=== PATIENT | male | born 1955 | race African-American/Black ===

== ENCOUNTER 2017-01-11 00:21 | Inpatient (IN) | payer OTHER ==
--- NOTE | 2017-01-11 00:53 | PDOC ---
History of Present Illness - General History Source: Patient <GomezsuzanEdmundo - Last Filed: 01/11/17 04:14> - General History Source: Patient, Spouse - History of Present Illness Initial Comments: 01/11/17 01:15 The patient is a 61 year old male with a significant past medical history of acute myelogenous leukemia, NIDDM, hypertension, hyperlipidemia, and DVT, who presents to the emergency department complaining of generalized weakness since yesterday. As per the patient experienced an unwitnessed mechanical fall secondary to weakness yesterday. The patient reports falling on his face and possible LOC. He reports associated pain to the face and mild headache secondary to facial trauma. The patient presents to the ED with a Tmax of 104.6F , but was unaware he had a fever. As per , the patient has experienced episodes of hematuria, but no dysuria, frequency, or urgency. The reports the patient has been experienced decreased appetite, but denies any nausea, vomiting, diarrhea, constipation, melena, or hematochezia. The patient reports midsternal non radiating chest pain, but denies any shortness of breath, diaphoresis, palpitations, or lower extremity edema. The reports the patient usually follows up at [facility] for medical care. The patient denies any recent travel or sick contacts. Allergies: None reported. Past Surgical History: None reported. Social History: Former smoker(Quit January 2015). Denies alcohol or drug use. <Negra Adams - Last Filed: 01/11/17 05:31> - General Stated Complaint: WEAKNESS Time Seen by Provider: 01/11/17 00:52 Past History - Past Medical History Anemia: Yes 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) Cardiac Disorders: Yes (?ISSUE) Diabetes: Yes HTN: Yes Hypercholesterolemia: Yes Suicide Attempt (Hx): No - Psycho/Social/Smoking Cessation Hx Anxiety: No Suicidal Ideation: No Smoking History: Never smoked Have you smoked in the past 12 months: Yes Number of Cigarettes Smoked Daily: 0 'Breaking Loose' booklet given: 02/08/15 Hx Alcohol Use: No Drug/Substance Use Hx: No Substance Use Type: None Hx Substance Use Treatment: No <Edmundo Mathew - Last Filed: 01/11/17 04:14> <Adams,Giomilsy - Last Filed: 01/11/17 05:31> - Past Medical History Allergies/Adverse Reactions: Allergies Allergy/AdvReac Type Severity Reaction Status Date / Time No Known Allergies Allergy Verified 01/11/17 00:53 Home Medications: Ambulatory Orders Amlodipine Besylate [Norvasc -] 5 mg PO DAILY 01/13/16 Magnesium Oxide [Magnesium] 400 mg PO DAILY 01/13/16 Oxycodone HCl/Acetaminophen [Percocet 5/325 -] 1 tab PO Q8H PRN 01/13/16 Posaconazole [Noxafil] 300 mg PO DAILY 01/13/16 Sulfamethoxazole/Trimethoprim [Bactrim Ds -] 1 tab PO BID 01/13/16 Tacrolimus [Prograf] 0.5 mg PO BID 01/13/16 Ursodiol [Actigal] 300 mg PO BID 01/13/16 Valganciclovir HCl 450 mg PO BID 01/13/16 Review of Systems - Review of Systems Able to Perform ROS?: Yes Comments:: 01/11/17 01:20 CONSTITUTIONAL: Present: +generalized weakness, +fever Absent: no chills EYES: Absent: visual changes ENT: Absent: ear pain, no sore throat CARDIOVASCULAR: Present: +midsternal chest pain Absent: no palpitations RESPIRATORY: Absent: cough, no SOB GI: Absent: abdominal pain, no nausea, no vomiting, no constipation, no diarrhea GENITOURINARY: Present: +hematuria Absent: dysuria, no frequency MUSKULOSKELETAL: Absent: back pain, no arthralgia, no myalgia SKIN: Absent: rash NEURO: Present: +headache, +facial pain, +LOC <Adams,Giomilsy - Last Filed: 01/11/17 05:31> *Physical Exam - Vital Signs Last Vital Signs Temp Pulse Resp BP Pulse Ox 104.6 F H 131 H 14 140/78 88 L 01/11/17 00:53 01/11/17 00:53 01/11/17 00:53 01/11/17 00:53 01/11/17 00:53 - Physical Exam Comments: 01/11/17 01:20 GENERAL: Well developed, well nourished. Awake and alert. No acute distress. Febrile. HEENT: Abrasions to the forehead and nose. Facial edema. No facial deformities or crepitus. PERRLA, EOMI. No conjunctival pallor. Sclera are non-icteric. Moist mucous membranes. Oropharynx is clear. NECK: Supple. Full ROM. No JVD. Carotid pulses 2+ and symmetric, without bruits. No thyromegaly. No lymphadenopathy. CARDIOVASCULAR: Tachycardic. No murmurs, rubs, or gallops. Distal pulses are 2+ and symmetric. PULMONARY: No evidence of respiratory distress. Lungs clear to auscultation bilaterally. No wheezing, rales or rhonchi. ABDOMINAL: Soft. Non-tender. Non-distended. No rebound or guarding. No organomegaly. Normoactive bowel sounds. MUSCULOSKELETAL Normal range of motion at all joints. Ecchymosis to the left hip region, but no bony deformities. Ecchymosis to the left wrist, but no bony deformities. No CVA tenderness. EXTREMITIES: No cyanosis. No clubbing. No edema. No calf tenderness. SKIN: Warm and dry. Normal capillary refill. No rashes. No jaundice. NEUROLOGICAL: Alert, awake, appropriate. Cranial nerves 2-12 intact. No deficits to light touch and temperature in face, upper extremities and lower extremities. No motor deficits in the in face, upper extremities and lower extremities. Normoreflexic in the upper and lower extremities. Normal speech. Toes are down- going bilaterally. Gait is normal without ataxia. PSYCHIATRIC: Cooperative. Good eye contact. Appropriate mood and affect. <Negra Adams - Last Filed: 01/11/17 05:31> Heart Score/ECG Review - ECG Impressions Comment:: 01/11/17 04:04 Vent RATE: 106 bpm IMPRESSION: Sinus tachycardia. Nonspecific ST and T wave abnormality. <Negra Adams - Last Filed: 01/11/17 05:31> ED Treatment Course - LABORATORY CBC & Chemistry Diagram: 01/11/17 01:00 01/11/17 01:00 <Edmundo Mathew - Last Filed: 01/11/17 04:14> - LABORATORY CBC & Chemistry Diagram: 01/11/17 01:00 01/11/17 01:00 - RADIOLOGY Radiograph Interpretation: 01/11/17 05:17 EXAM: Head CT INTERPRETED BY: Dr. Rivers REVIEWED BY: Dr. Mathew IMPRESSION: No acute intracranial pathology. Bilateral lamina papyracea fractures with a focal blood in the sinuses versus sinusitis. EXAM: CT Facial bones INTERPRETED BY: Dr. Rivers REVIEWED BY: Dr. Mathew IMPRESSION: Fractures of bilateral lamina papyracea with blood in the sinuses versus sinusitis. <Negra Adams - Last Filed: 01/11/17 05:31> Medical Decision Making - Medical Decision Making 01/11/17 04:15 Dr. Mathew: The scribe's documentation has been prepared under my direction and personally reviewed by me in its entirery. I confirm that the note above accurately reflects all work, treatment, procedures, and medical decision making performed by me. Patient presents with a temp of 104.6, generalized weakness,and hematuria, will admit to [facility] for further evaluation. <Edmundo Mathew - Last Filed: 01/11/17 04:14> *DC/Admit/Observation/Transfer - Discharge Dispostion Admit: Yes <Edmundo Mathew - Last Filed: 01/11/17 04:14> - Attestations Scribe Attestion: 01/11/17 01:24 Documentation prepared by Negra Adams, acting as certified medical technician for Edmundo Mathew DO. <Negra Adams - Last Filed: 01/11/17 05:31> Diagnosis at time of Disposition: Severe sepsis, Neutropaenic precautions, Thrombocytopenia - Discharge Dispostion Condition at time of disposition: Stable - Referrals Referrals: Claudia De Souza MD [Primary Care Provider] -
[2017-01-11] MEDS ORDERED: SODIUM CHLORIDE 0.9% 1000 ML INFUS.BAG IV PRN (00:57)
[2017-01-11] MEDS ORDERED: ACETAMINOPHEN 1000 MG/100 ML VIAL (NON FORMULARY) IVPB ONE (00:59)
[2017-01-11 01:02] VITALS: BMI 22.8
[2017-01-11] MEDS ORDERED: ACETAMINOPHEN INJECTION 100 ML IVPB ONE (01:57)
[2017-01-11] MEDS ORDERED: PIPERACILLIN/TAZOB 3.375 GM 3.375 GM in DEXTROSE 5%-WATER - 50 ML IVPB ONE (02:11)
[2017-01-11] MEDS ORDERED: VANCOMYCIN 1,000 MG in DEXTROSE 5%-WATER - 250 ML IVPB ONE (02:11)
[2017-01-11 02:13] LABS: BASOPHIL 1.4 % (0-2.0); EOSINOPHIL 0.4 % (0-4.5); MCH 29.6 pg (25.7-33.7); MCHC 33.3 g/dl (32.0-35.9); MEAN CELL VOLUME 88.9 fl (80-96); NEUTROPHILS 6.2 % (42.8-82.8); RDW 14.4 % (11.9-15.9); WHITE BLOOD COUNT 13.3 K/mm3 (4.0-10.0)
[2017-01-11 02:14] LABS: INR 1.99 (0.82-1.09); PROTHROMBIN TIME (PATIENT) 22.2 SEC (9.98-11.88)
[2017-01-11 02:17] LABS: ACTIVATED PTT 70.9 SECONDS (26.9-34.4)
[2017-01-11 02:31] LABS: ALBUMIN 2.8 g/dl (3.4-5.0); ANION GAP 11 (8-16); BILIRUBIN,TOTAL 1.5 mg/dL (0.2-1.0); CALCIUM 8.6 mg/dL (8.5-10.1); CO2 27 mmol/L (21-32); CREATININE 3.2 mg/dL (0.7-1.3); GLUCOSE,RANDOM 156 mg/dL (74-106); SGOT/AST 34 U/L (15-37); SGPT/ALT 32 U/L (12-78); TOT PROT 7.7 g/dl (6.4-8.2)
[2017-01-11 02:33] LABS: ALK PHOS 88 U/L (45-117); TROPONIN I 0.08 ng/ml (0.00-0.05)
[2017-01-11 02:40] LABS: VENOUS PH 7.46 (7.32-7.42)
[2017-01-11 02:41] LABS: VENOUS BLOOD GAS HCO3 27.7 meq/L (19-25)
[2017-01-11] MEDS ORDERED: PIPERACILLIN/TAZOB 3.375 GM 50 ML IVPB ONE ×2 (02:44→17:51)
[2017-01-11] MEDS ORDERED: VANCOMYCIN 1 GRAM (PRE-DOCKED) 250 ML IVPB ONE (02:44)
[2017-01-11] MEDS ORDERED: SODIUM CHLORIDE 1,000 ML IV STA ×2 (02:46→06:23)
[2017-01-11 03:16] LABS: MEAN PLT VOLUME 9.6 fl (7.5-11.1)
[2017-01-11 03:17] LABS: PLATELET COMMENT2 NO CLOTTING DETECTED; PLATELET ESTIMATE MARKEDLY DECREASED (NORMAL)
--- NOTE | 2017-01-11 05:41 | PN ---
Teaching Attending Note Name of Resident: Jhon Corey ATTENDING PHYSICIAN STATEMENT I saw and evaluated the patient. I reviewed the resident's note and discussed the case with the resident. I agree with the resident's findings and plan as documented. SUBJECTIVE: 61 y/o M presented to ED c/o generalized weakness for one day, with fall without LOC. As per patient was transfused 2 days prior at [facility] and has had hematuria. Patient also c/o substernal chest pain. OBJECTIVE: A&Ox3 with abrasion to forehead and facial edema. Ansicoria. Lungs: CTA CVS RRR, S1,S2 Abd: Soft, NT, ND, BS+ Ext: hematoma left hip, nl rom and 2+ pulses, no edema. Neuro: no focal deficits ASSESSMENT AND PLAN: Severe sepsis: IVF, continue home medications, Bactrim DS, Posaconazole, Valganciclovir. Stat Vanco and Zosyn. F/U lactic acid and CBC and BMP, UA and UC ID consult. AML- Thrombocytopenia transfuse platelet MILLER- IVF and renal USG monitor I&Os.
--- NOTE | 2017-01-11 06:53 | HP ---
CHIEF COMPLAINT: fevers and shaking PCP: HISTORY OF PRESENT ILLNESS: 61 yo M with significant PMHx of AML, NIDDM, HTN, HLD, and DVT, who presents to the emergency department complaining of generalized weakness since yesterday. He states that two days ago he getting his regularly scheduled transfusion at [facility] and received only one unit instead of his normal two. Immediately after transfusion he felt "weak and shaky". He then proceeded that evening to [employer] from work and had 2 unwitnessed falls where he hit his left hip and head without LOC. The patient presents to the 01/11/17 to ED with a Tmax of 104.6F. As per , the patient has experienced episodes of gross hematuria, but no dysuria, frequency, or urgency. The reports the patient has been experienced decreased appetite, but denies any nausea, vomiting, diarrhea, constipation, melena, or hematochezia. The patient reports midsternal non radiating chest pain, but denies any shortness of breath, diaphoresis, palpitations, or lower extremity edema. He is followed at [facility] Dr. Gibson and Dr. Lomeli for his AML. He states that he is currently on palliative chemo on trial drug. ER course was notable for: (1)CT head and Facial bones- Fractures of bilateral lamina papyracea with blood in sinuses v. sinusitis (2) Given one time dose of Vanco-Zosyn (3) Elevated trops w/o EKG changes most likely demand ischemia 2/2 sepsis. Recent Travel: Denies PAST MEDICAL HISTORY: AML, NIDDM, HTN, HLD, and DVT PAST SURGICAL HISTORY: none Social History: Smoking:current smoker 1/2 ppd Alcohol:denies Drugs: denies Family History: Allergies No Known Allergies Allergy (Verified 01/11/17 00:53) HOME MEDICATIONS: Home Medications Medication Instructions Recorded Amlodipine Besylate [Norvasc -] 5 mg PO DAILY 01/13/16 Magnesium Oxide [Magnesium] 400 mg PO DAILY 01/13/16 Oxycodone HCl/Acetaminophen 1 tab PO Q8H PRN 01/13/16 [Percocet 5/325 -] Posaconazole [Noxafil] 300 mg PO DAILY 01/13/16 Sulfamethoxazole/Trimethoprim 1 tab PO BID 01/13/16 [Bactrim Ds -] Tacrolimus [Prograf] 0.5 mg PO BID 01/13/16 Ursodiol [Actigal] 300 mg PO BID 01/13/16 Valganciclovir HCl 450 mg PO BID 01/13/16 REVIEW OF SYSTEMS CONSTITUTIONAL: (+)fever, chills,generalized weakness Absent: diaphoresis, , malaise, loss of appetite, weight change HEENT: Absent: rhinorrhea, nasal congestion, throat pain, throat swelling, difficulty swallowing, mouth swelling, ear pain, eye pain, visual changes CARDIOVASCULAR: (+)chest pain Absent: , syncope, palpitations, irregular heart rate, lightheadedness, peripheral edema RESPIRATORY: Absent: cough, shortness of breath, dyspnea with exertion, orthopnea, wheezing, stridor, hemoptysis GASTROINTESTINAL: Absent: abdominal pain, abdominal distension, nausea, vomiting, diarrhea, constipation, melena, hematochezia GENITOURINARY: (+)hematuria Absent: dysuria, frequency, urgency, hesitancy, flank pain, genital pain MUSCULOSKELETAL:(+)myalgia Absent: , arthralgia, joint swelling, back pain, neck pain SKIN: Absent: rash, itching, pallor HEMATOLOGIC/IMMUNOLOGIC: Absent: easy bleeding, easy bruising, lymphadenopathy, frequent infections ENDOCRINE: Absent: unexplained weight gain, unexplained weight loss, heat intolerance, cold intolerance NEUROLOGIC: (+)headache Absent: , focal weakness or paresthesias, dizziness, unsteady gait, seizure, mental status changes, bladder or bowel incontinence PSYCHIATRIC: Absent: anxiety, depression, suicidal or homicidal ideation, hallucinations. PHYSICAL EXAMINATION Vital Signs - 24 hr 01/11/17 01/11/17 01/11/17 00:53 02:30 04:00 Temperature 104.6 F H 105.4 F H Pulse Rate 131 H Pulse Rate [ Left Radial] Respiratory 14 Rate Blood Pressure 140/78 Blood Pressure 102/62 [Left Arm] O2 Sat by Pulse 88 L Oximetry (%) 01/11/17 01/11/17 04:05 05:46 Temperature 101.6 F H 102.4 F H Pulse Rate Pulse Rate [ 115 H Left Radial] Respiratory 20 Rate Blood Pressure Blood Pressure 107/97 [Left Arm] O2 Sat by Pulse 92 L Oximetry (%) GENERAL: Awake, alert, and fully oriented, shaking, in moderate distress. HEAD: Abrasions to the forehead and nose. Facial edema. EYES: Pupils unequal left larger but reactive, extraocular movements intact, sclera anicteric, conjunctiva clear. EARS, NOSE, THROAT: Ears normal, nares patent, oropharynx clear without exudates. Moist mucous membranes. NECK: Normal range of motion, supple without lymphadenopathy, JVD, or masses. LUNGS: Breath sounds equal, clear to auscultation bilaterally. No wheezes, and no crackles. No accessory muscle use. HEART: Regular rate and rhythm, normal S1 and S2 without murmur, rub or gallop. ABDOMEN: Soft, nontender, not distended, normoactive bowel sounds, no guarding, no rebound, no masses. No hepatomegaly or splenomegaly. MUSCULOSKELETAL: Normal range of motion at all joints. cachectic. 10cm hematoma on left hip UPPER EXTREMITIES: 2+ pulses, warm, well-perfused. No cyanosis. No clubbing. No peripheral edema. LOWER EXTREMITIES:1+ pulses, warm, well-perfused. No calf tenderness. No peripheral edema. NEUROLOGICAL: Normal speech. gait not observed. PSYCHIATRIC: Aggitated, poor eye contact. SKIN: Warm, dry, normal turgor, no rashes or lesions noted. Laboratory Results - last 24 hr 01/11/17 01/11/17 01/11/17 01:00 01:00 01:00 WBC 13.3 H D RBC 2.56 L Hgb 7.6 L Hct 22.8 L MCV 88.9 MCHC 33.3 RDW 14.4 D Plt Count 6.0 L* D MPV 9.6 D Neutrophils % 6.2 L D Lymphocytes % 50.8 H D Monocytes % 41.2 H D Eosinophils % 0.4 D Basophils % 1.4 Platelet Estimate Markedly decreased Platelet Comment No clotting detected INR 1.99 H D PTT (Actin FS) 70.9 H D VBG pH POC VBG pCO2 POC VBG pO2 Mixed VBG HCO3 Sodium 141 Potassium 4.1 Chloride 103 Carbon Dioxide 27 Anion Gap 11 BUN 36 H D Creatinine 3.2 H D Creat Clearance w eGFR 19.78 Random Glucose 156 H Lactic Acid Calcium 8.6 Total Bilirubin 1.5 H D AST 34 D ALT 32 D Alkaline Phosphatase 88 D Creatine Kinase 424 H Creatine Kinase Index CK-MB (CK-2) < 1.000 CK-MB (CK-2) Rel Index Troponin I 0.08 H Total Protein 7.7 D Albumin 2.8 L 01/11/17 01/11/17 01/11/17 01:00 01:00 02:30 WBC RBC Hgb Hct MCV MCHC RDW Plt Count MPV Neutrophils % Lymphocytes % Monocytes % Eosinophils % Basophils % Platelet Estimate Platelet Comment INR PTT (Actin FS) VBG pH 7.46 H POC VBG pCO2 39.7 POC VBG pO2 18.4 L* Mixed VBG HCO3 27.7 H Sodium Potassium Chloride Carbon Dioxide Anion Gap BUN Creatinine Creat Clearance w eGFR Random Glucose Lactic Acid 1.873 Calcium Total Bilirubin AST ALT Alkaline Phosphatase Creatine Kinase Creatine Kinase Index CK-MB (CK-2) CK-MB (CK-2) Rel Index Cancelled Troponin I Total Protein Albumin ASSESSMENT/PLAN: 61 yo M with significant PMHx of AML, NIDDM, HTN, HLD, and DVT, admitted for management of severe sepsis. ID:Sepsis * severe sepsis- end organ damage * aggressive IVF NS maintain MAP >65 * ID consult- Dr. Shea * has been on Posaconazole 300 mg PO DAILY Bactrim Ds - 1 tab PO BID , Valganciclovir HCl 450 mg PO BID * One time dose Vanco/Zosyn in ED * Labs:Lactic acid, cbc, cmp, ua pending * cultures: blood/urine pending. Neuro: * AAO x3 -neuro checks q6 * Pain control - 1 mg dilaudid Q4hrs. Heme:AML * Followed at [facility] Dr. Gibson and Dr. Lomeli * Thrombocytopenia - hematuria transfuse plt. Pulm: * Supplemental O2 via NC @2L PRN * Maintain O2 sat >90% * Aspiration precautions. CV: * BP meds held for hypotension * elevated trop- most likely demand; trend trops. * hold AC - bleeding Plt 6 GI: * NPO for now * Advance diet * monitor for signs of bleed. * Zofran PRN nausea Renal:MILLER * IVF NS * renal US * possible renal tox from multi drug regimen * avoid nephrotoxin * repeat BMP :hematuria * [place] catheter * hold AC F/E/N: * NS to maintatain MAP >65 * MILLER- repeat BMP * NPO - advance as tolerated. DISPO: Patient admitted to med/surg - patient is hospice/palliative care. Discuss GOC with Fam. Problem List - Problem (1) Severe sepsis (2) Thrombocytopenia (3) AML (acute myeloblastic leukemia) (4) Diabetes (5) Peripheral vascular disease (6) HTN (hypertension) (7) HLD (hyperlipidemia) (8) Neutropaenic precautions Visit type - Emergency Visit Emergency Visit: Yes ED Registration Date: 01/11/17 Care time: The patient presented to the Emergency Department on the above date and was hospitalized for further evaluation of their emergent condition. - New Patient This patient is new to me today: Yes Date on this admission: 01/11/17 - Critical Care Critical Care patient: No
[2017-01-11 07:54] LABS: MCH 30.3 pg (25.7-33.7); MCHC 33.9 g/dl (32.0-35.9); MEAN CELL VOLUME 89.3 fl (80-96); RDW 14.7 % (11.9-15.9); WHITE BLOOD COUNT 14.5 K/mm3 (4.0-10.0)
[2017-01-11 08:04] LABS: PLATELET COUNT 3 K/MM3 (134-434)
[2017-01-11 08:10] LABS: PROTHROMBIN TIME (PATIENT) 22.3 SEC (9.98-11.88)
[2017-01-11 08:13] LABS: ACTIVATED PTT 58.9 SECONDS (26.9-34.4)
[2017-01-11 08:18] LABS: ALBUMIN 2.3 g/dl (3.4-5.0); BILIRUBIN,TOTAL 1.3 mg/dL (0.2-1.0); CALCIUM 7.6 mg/dL (8.5-10.1); TOT PROT 6.3 g/dl (6.4-8.2)
[2017-01-11] MEDS ORDERED: HYDROmorphone HCL CARPU-JECT 1 MG/1 ML DISP.SYRIN ONE (08:20)
[2017-01-11] MEDS: HYDROmorphone HCL CARPU-JECT 1 MG/1 ML DISP.SYRIN IVPUSH PRN (08:21)
[2017-01-11] MEDS ORDERED: ACETAMINOPHEN 325 MG TABLET (FP) PO ONE (08:49)
[2017-01-11 09:15] LABS: MAGNESIUM 1.7 mg/dL (1.8-2.4); PHOSPHOROUS 2.1 mg/dL (2.5-4.9)
[2017-01-11] MEDS ORDERED: HEMOQUE TEST 1 EACH EACH ONE (09:15)
[2017-01-11 09:23] LABS: ARTERIAL BLOOD GAS pH 7.46 (7.35-7.45)
[2017-01-11 09:24] LABS: ALLENS TEST POSITIVE; ART PUNCT SITE RIGHT RADIAL; ARTERIAL BLD GAS O2 SATURATION 94.1 % (90-98.9); ARTERIAL BLOOD GAS BASE EXCESS -0.1 meq/l (-2-2); ARTERIAL BLOOD GAS HCO3 23.3 meq/L (22-26); LPM/O2% 21%; METHEMOGLOBIN 2.6 % (0.4-1.5); PT. ON O2? NO
[2017-01-11 09:25] LABS: TYPE OF O2 ROOM AIR
[2017-01-11] MEDS: DOCUSATE SODIUM 100 MG CAPSULE (FP) PO PRN (10:00)
[2017-01-11] MEDS ORDERED: PHYTONADIONE 10 MG/1 ML AMP IVPB ONE (11:12)
[2017-01-11 12:13] LABS: PLATELET ESTIMATE MARKEDLY DECREASED (NORMAL)
[2017-01-11] MEDS ORDERED: PHYTONADIONE 10 MG/1 ML AMP ONE (13:06)
--- NOTE | 2017-01-11 13:32 | CONSULT ---
Consult - text type - Consultation Consultation Note: The patient is a 61 year old male with a significant past medical history of multiply relapsed acute myelogenous leukemia,s/p allo PBSCT, NIDDM, hypertension , hyperlipidemia, and DVT, who presents to the emergency department complaining of generalized weakness since yesterday. As per the patient experienced an unwitnessed mechanical fall secondary to weakness yesterday. The patient reports falling on his face . The patient presents to the ED with a Tmax of 104.6F, but was unaware he had a fever. As per , the patient has experienced episodes of hematuria, but no dysuria, frequency, or urgency. The reports the patient has been experienced decreased appetite, but denies any nausea, vomiting, diarrhea, constipation, melena, or hematochezia. The patient reports midsternal non radiating chest pain, but denies any shortness of breath, diaphoresis, palpitations, or lower extremity edema. He has been on a clinical trial for AML c/o bleeding from penis Allergies: None reported. Past Surgical History: None reported. Social History: Former smoker(Quit January 2015). Denies alcohol or drug use. Past History - Past Medical History Anemia: Yes Cancer: transformed AML Cardiac Disorders: Yes (?ISSUE) Diabetes: Yes HTN: Yes Hypercholesterolemia: Yes - Psycho/Social/Smoking Cessation Hx Smoking History: Never smoked Have you smoked in the past 12 months: Yes - Past Medical History Allergies/Adverse Reactions: Allergies Allergy/AdvReac Type Severity Reaction Status Date / Time No Known Allergies Allergy Verified 01/11/17 00:53 Home Medications: Ambulatory Orders Amlodipine Besylate [Norvasc -] 5 mg PO DAILY 01/13/16 Magnesium Oxide [Magnesium] 400 mg PO DAILY 01/13/16 Oxycodone HCl/Acetaminophen [Percocet 5/325 -] 1 tab PO Q8H PRN 01/13/16 Posaconazole [Noxafil] 300 mg PO DAILY 01/13/16 Sulfamethoxazole/Trimethoprim [Bactrim Ds -] 1 tab PO BID 01/13/16 Tacrolimus [Prograf] 0.5 mg PO BID 01/13/16 Ursodiol [Actigal] 300 mg PO BID 01/13/16 Valganciclovir HCl 450 mg PO BID 01/13/16 Current Medications Docusate Sodium (Colace -) 100 mg PO BID PRN PRN Reason: CONSTIPATION Last Admin: 01/11/17 10:00 Dose: 100 mg Hydromorphone HCl (Dilaudid Injection -) 1 mg IVPUSH Q4H PRN PRN Reason: PAIN Last Admin: 01/11/17 08:21 Dose: 1 mg Insulin Aspart (Novolog Vial Sliding Scale -) 1 vial SQ ACHS YOMI PRN Reason: Protocol Sodium Chloride (Normal Saline -) 1,000 ml IV Q20M PRN PRN Reason: MAP<65mm Hg OR SBP <90 Last Admin: 01/11/17 02:09 Dose: 1,000 ml - Vital Signs Last Vital Signs Temp Pulse Resp BP Pulse Ox 104.6 F H 131 H 14 140/78 88 L 01/11/17 00:53 01/11/17 00:53 01/11/17 00:53 01/11/17 00:53 01/11/17 00:53 HEENT: DEANNA, EOM Intact Oropharynx: No thrush, No mucositis Cor: RSR, No murmurs, No gallops Lungs: Clear to P&A Abd: Soft, Normal bowel sounds, No organomegaly Ext:No significant edema Abnormal Lab Results 01/11/17 01/11/17 01/11/17 01:00 01:00 01:00 WBC 13.3 H D RBC 2.56 L Hgb 7.6 L Hct 22.8 L Plt Count 6.0 L* D MPV Neutrophils % 6.2 L D Lymphocytes % 50.8 H D Monocytes % 41.2 H D Blast Cells INR 1.99 H D PTT (Actin FS) 70.9 H D Fibrinogen ABG pH ABG pCO2 at Pt Temp ABG pO2 at Pt Temp ABG O2 Content VBG pH POC VBG pO2 Mixed VBG HCO3 Methemoglobin BUN 36 H D Creatinine 3.2 H D Random Glucose 156 H Calcium Phosphorus Magnesium Total Bilirubin 1.5 H D Creatine Kinase 424 H Troponin I 0.08 H Total Protein Albumin 2.8 L Crossmatch 01/11/17 01/11/17 01/11/17 01:50 02:30 07:48 WBC 14.5 H RBC 1.95 L D Hgb 5.9 L* D Hct 17.4 L D Plt Count 3 L* D MPV 12.0 H D Neutrophils % 15.0 L D Lymphocytes % 59.0 H Monocytes % 15.0 H Blast Cells 15 H D INR PTT (Actin FS) Fibrinogen ABG pH ABG pCO2 at Pt Temp ABG pO2 at Pt Temp ABG O2 Content VBG pH 7.46 H POC VBG pO2 18.4 L* Mixed VBG HCO3 27.7 H Methemoglobin BUN Creatinine Random Glucose Calcium Phosphorus Magnesium Total Bilirubin Creatine Kinase Troponin I Total Protein Albumin Crossmatch See Detail 01/11/17 01/11/17 01/11/17 07:48 07:48 07:48 WBC RBC Hgb Hct Plt Count MPV Neutrophils % Lymphocytes % Monocytes % Blast Cells INR 2.00 H PTT (Actin FS) 58.9 H Fibrinogen ABG pH ABG pCO2 at Pt Temp ABG pO2 at Pt Temp ABG O2 Content VBG pH POC VBG pO2 Mixed VBG HCO3 Methemoglobin BUN 33 H Creatinine 3.0 H Random Glucose 156 H Calcium 7.6 L Phosphorus 2.1 L Magnesium 1.7 L Total Bilirubin 1.3 H Creatine Kinase Troponin I 0.12 H D Total Protein 6.3 L Albumin 2.3 L Crossmatch 01/11/17 01/11/17 09:20 11:30 WBC RBC Hgb Hct Plt Count MPV Neutrophils % Lymphocytes % Monocytes % Blast Cells INR PTT (Actin FS) Fibrinogen 504.0 H ABG pH 7.46 H ABG pCO2 at Pt Temp 33.2 L ABG pO2 at Pt Temp 66.0 L ABG O2 Content 4.8 L* VBG pH POC VBG pO2 Mixed VBG HCO3 Methemoglobin 2.6 H BUN Creatinine Random Glucose Calcium Phosphorus Magnesium Total Bilirubin Creatine Kinase Troponin I Total Protein Albumin Crossmatch A/P 61 y/o patient with relapsed AML, s/p alloPBSCT, now on clinical trial at [facility] comes in with generalized weakness for few days. He fell 2 days ago Now severely pancytopenic platelets 3000, Hgb 5.9, febrile, in renal failure and coagulopathic CT head shows no bleed Concern for sepsis/coagulopathy INR 2/fibrinogen 584 Getting 2 units monodonor platelets Getiing FFP/vitaminK Got zosyn/vancomycin f/u ID recommndations continue empiric vanco/zosyn hold bactrim/valganciclovir given pancytpenia continue posaconazole hold tacro/prograf given renal failure iv fluids renal consult monitoring in icu will discuss with team at [facility] and with hospitalist team
--- NOTE | 2017-01-11 14:03 | CONSULT ---
Consult Consult Specialty:: Nephrology Reason for Consultation:: MILLER - History of Present Illness Chief Complaint: generalized weakness and fall History of Present Illness: Pt is a 61 year old male with pmhx of AML, DM, HTN, hyperlipidemia and DVT who presents to the ER with generalized weakness and fall. He also complained of hematuria. He was found to be in renal failure and I was called to evaluate him. He denies history of kidney disease. He complains of decreased PO intake. He denies dysuria but does have hematuria. He did complain of fever and chills. He was also found to be thrombocytopenic and anemic. He was on bactrim until 2 days ago. 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 History of Recent Travel: No Home Medications - Allergies Allergies/Adverse Reactions: Allergies Allergy/AdvReac Type Severity Reaction Status Date / Time No Known Allergies Allergy Verified 01/11/17 00:53 - Home Medications Home Medications: Ambulatory Orders Amlodipine Besylate [Norvasc -] 5 mg PO DAILY 01/13/16 Magnesium Oxide [Magnesium] 400 mg PO DAILY 01/13/16 Oxycodone HCl/Acetaminophen [Percocet 5/325 -] 1 tab PO Q8H PRN 01/13/16 Posaconazole [Noxafil] 300 mg PO DAILY 01/13/16 Sulfamethoxazole/Trimethoprim [Bactrim Ds -] 1 tab PO BID 01/13/16 Tacrolimus [Prograf] 0.5 mg PO BID 01/13/16 Ursodiol [Actigal] 300 mg PO BID 01/13/16 Valganciclovir HCl 450 mg PO BID 01/13/16 Family Disease History - Family Disease History Family Disease History: CA: Mother (breast), Other: Father (healthy at 82) Review of Systems - Review of Systems Constitutional: reports: Loss of Appetite, Malaise. denies: Fever Eyes: reports: No Symptoms HENT: reports: No Symptoms Neck: reports: No Symptoms Cardiovascular: reports: No Symptoms Respiratory: reports: SOB on Exertion Gastrointestinal: reports: No Symptoms Genitourinary: reports: Hematuria Musculoskeletal: reports: Muscle Weakness Integumentary: reports: No Symptoms Neurological: reports: No Symptoms Endocrine: reports: No Symptoms Physical Exam Vital Signs: Vital Signs Temperature 98.1 F 01/11/17 13:15 Pulse Rate 101 H 01/11/17 13:15 Respiratory Rate 14 01/11/17 13:15 Blood Pressure 104/56 01/11/17 13:15 O2 Sat by Pulse Oximetry (%) 98 01/11/17 13:15 Constitutional: Yes: Calm Eyes: Yes: Conjunctiva Clear HENT: Yes: Atraumatic Cardiovascular: Yes: S1, S2 Respiratory: Yes: CTA Bilaterally Gastrointestinal: Yes: Soft Renal/: Yes: Espinoza Present Musculoskeletal: Yes: Muscle Weakness Edema: No Neurological: Yes: Oriented Psychiatric: Yes: Oriented Labs: CBC, BMP 01/11/17 07:48 01/11/17 07:48 Laboratory Tests 05/19/15 01/13/16 01/11/17 10:50 12:55 01:00 WBC 13.3 H D Hgb 7.6 L Plt Count 6.0 L* D ABG pH ABG pCO2 at Pt Temp ABG pO2 at Pt Temp ABG HCO3 ABG O2 Sat (Measured) ABG O2 Content Sodium Potassium Chloride Carbon Dioxide Anion Gap BUN Creatinine 1.1 1.3 Creat Clearance w eGFR Random Glucose Calcium Phosphorus Magnesium 01/11/17 01/11/17 01/11/17 01:00 07:48 07:48 WBC 14.5 H Hgb 5.9 L* D Plt Count 3 L* D ABG pH ABG pCO2 at Pt Temp ABG pO2 at Pt Temp ABG HCO3 ABG O2 Sat (Measured) ABG O2 Content Sodium 142 Potassium 3.9 Chloride 107 Carbon Dioxide 25 Anion Gap 10 BUN 33 H Creatinine 3.2 H D 3.0 H Creat Clearance w eGFR 21.31 Random Glucose 156 H Calcium 7.6 L Phosphorus 2.1 L Magnesium 1.7 L 01/11/17 09:20 WBC Hgb Plt Count ABG pH 7.46 H ABG pCO2 at Pt Temp 33.2 L ABG pO2 at Pt Temp 66.0 L ABG HCO3 23.3 ABG O2 Sat (Measured) 94.1 ABG O2 Content 4.8 L* Sodium Potassium Chloride Carbon Dioxide Anion Gap BUN Creatinine Creat Clearance w eGFR Random Glucose Calcium Phosphorus Magnesium Imaging - Results Chest X-ray: Report Reviewed Assessment/Plan Current Medications Generic Name Dose Route Start Last Admin Trade Name Freq PRN Reason Stop Dose Admin Docusate Sodium 100 mg 01/11/17 07:03 01/11/17 10:00 Colace - PO 100 mg BID PRN Administration CONSTIPATION Hydromorphone HCl 1 mg 01/11/17 07:03 01/11/17 08:21 Dilaudid Injection - IVPUSH 1 mg Q4H PRN Administration PAIN Piperacillin Sod/Tazobactam 50 mls @ 100 mls/hr 01/11/17 14:30 Sod 2.25 gm/ Dextrose IVPB Q8H-IV YOMI Protocol Piperacillin Sod/Tazobactam Sod 50 mls @ 100 mls/hr 01/11/17 14:30 Zosyn 2.25gm Ivpb (Pre-Docked) IVPB 01/11/17 14:59 ONCE ONE Protocol Insulin Aspart 1 vial 01/11/17 07:00 Novolog Vial Sliding Scale - SQ ACHS YOMI Protocol Sodium Chloride 1,000 ml 01/11/17 00:57 01/11/17 02:09 Normal Saline - IV 1,000 ml Q20M PRN Administration MAP<65mm Hg OR SBP <90 Impression 1. MILLER 2. 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 DM 5. hyperlipidemia 6. HTN 7. hx DVT 8. hematuria 9. sepsis 10. thrombocytopenia 11. anemia Plan - get ultrasound kidney and bladder - check ua, electrolytes and creatinine - likely pre-renal disease - called and discussed with heme onc, they will monitor prograf levels and dose - bactrim is on hold, which can contribute to elevated creatinine - admit pt to ICU - bolus with normal saline - case discussed with medical attending and residents - urology eval for gross hematuria - will comment more on etiology of MILLER after more data is gathered - pt getting prbc and platelet transfusions - will follow closely
[2017-01-11] MEDS ORDERED: PIPERACILLIN/TAZOB 2.25 GM 2.25 GM in DEXTROSE 5%-WATER - 50 ML IVPB SCH (14:30)
[2017-01-11] MEDS ORDERED: PIPERACILLIN/TAZOB 2.25 GM 50 ML IVPB ONE (14:30)
[2017-01-11] MEDS: INSULIN SLIDING SCALE (NOVOLOG) 1 VIAL SQ SCH ×2 (15:37→18:19)
--- NOTE | 2017-01-11 16:05 | EKG ---
Test Reason : Blood Pressure : / mmHG Vent. Rate : 106 BPM Atrial Rate : 106 BPM P-R Int : 130 ms QRS Dur : 078 ms QT Int : 320 ms P-R-T Axes : 063 -12 -22 degrees QTc Int : 425 ms SINUS TACHYCARDIA NONSPECIFIC ST AND T WAVE ABNORMALITY ABNORMAL ECG WHEN COMPARED WITH ECG OF 13-JAN-2016 13:10, NONSPECIFIC T WAVE ABNORMALITY, WORSE IN INFERIOR LEADS NONSPECIFIC T WAVE ABNORMALITY, WORSE IN LATERAL LEADS Confirmed by GIOVANNI PERKINS MD ([id number]) on 01/11/2017 4:05:10 PM Referred By: Confirmed By:GIOVANNI PERKINS MD
--- NOTE | 2017-01-11 17:05 | CONSULT ---
Consult Consult Specialty:: PULMONARY/CCM Referred by:: Dr. Gonzalez Reason for Consultation:: sepsis - History of Present Illness Chief Complaint: hematuria History of Present Illness: 61yo male with h/o HTN, hyperlipidemia, DM, h/o DVT, AML s/p auto stem cell transplant who presents with generalized weakness and hematuria. States he was experiencing subjective fevers and chills, had routine blood work 2 days ago and was told that he needed transfusions but felt extremely weak and fell. No cough or wheezing, some dyspnea on exertion. No nausea, vomiting or diarrhea. Does report basim hematuria. Found to have a fever to 105 in the ER with severe anemia and thrombocytopenia, transferred to the ICU for further monitoring. - History Source History Provided By: Patient, Medical Record Limitations to Obtaining History: Clinical Condition - Past Medical History Cardio/Vascular: Yes: Deep Vein Thrombosis, HTN, Hyperlipdemia Endocrine: Yes: Diabetes Mellitus - Past Surgical History Additional Surgical History: stem cell transplant - Alcohol/Substance Use Hx Alcohol Use: No - Smoking History Smoking history: Never smoked Have you smoked in the past 12 months: Yes Aproximately how many cigarettes per day: 0 If you are a former smoker, when did you quit?: 2015 - Social History ADL: Independent Occupation: disability, former [employer] History of Recent Travel: No Home Medications - Allergies Allergies/Adverse Reactions: Allergies Allergy/AdvReac Type Severity Reaction Status Date / Time No Known Allergies Allergy Verified 01/11/17 00:53 - Home Medications Home Medications: Ambulatory Orders Amlodipine Besylate [Norvasc -] 5 mg PO DAILY 01/13/16 Magnesium Oxide [Magnesium] 400 mg PO DAILY 01/13/16 Oxycodone HCl/Acetaminophen [Percocet 5/325 -] 1 tab PO Q8H PRN 01/13/16 Posaconazole [Noxafil] 300 mg PO DAILY 01/13/16 Sulfamethoxazole/Trimethoprim [Bactrim Ds -] 1 tab PO BID 01/13/16 Tacrolimus [Prograf] 0.5 mg PO BID 01/13/16 Ursodiol [Actigal] 300 mg PO BID 01/13/16 Valganciclovir HCl 450 mg PO BID 01/13/16 Family Disease History - Family Disease History Family Disease History: CA: Mother (breast), Other: Father (healthy at 82) Review of Systems - Review of Systems Constitutional: reports: Chills, Fever, Weakness Eyes: denies: Recent Change in Vision HENT: denies: Nasal Congestion, Throat Pain Neck: denies: Stiffness, Tenderness Cardiovascular: reports: Shortness of Breath. denies: Chest Pain, Edema, Palpitations Respiratory: reports: SOB, SOB on Exertion. denies: Cough, Hemoptysis, Wheezing Gastrointestinal: denies: Abdominal Pain, Nausea, Vomiting Genitourinary: reports: Hematuria. denies: Dysuria Neurological: denies: Dizziness, Headache Physical Exam Vital Signs: Vital Signs Temperature 99.2 F 01/11/17 15:14 Pulse Rate 118 H 01/11/17 15:14 Respiratory Rate 20 01/11/17 15:14 Blood Pressure 118/68 01/11/17 15:14 O2 Sat by Pulse Oximetry (%) 96 01/11/17 14:42 Constitutional: Yes: Moderate Distress, Other (intermittent rigors) Eyes: Yes: Conjunctiva Clear, EOM Intact HENT: Yes: Atraumatic, Normocephalic Neck: Yes: Supple, Trachea Midline Cardiovascular: Yes: Tachycardia Respiratory: Yes: Diminished (decreased breath sounds at the bases) Gastrointestinal: Yes: Normal Bowel Sounds, Soft. No: Tenderness Edema: No Neurological: Yes: Alert, Oriented Labs: CBC, BMP 01/11/17 07:48 01/11/17 07:48 Imaging - Results Cat Scan: Report Reviewed, Image Reviewed (LLL consolidation) Assessment/Plan Pneumonia Severe Sepsis Acute on Chronic Renal Failure AML Severe Anemia Severe Thrombocytopenia h/o DVT - broad spectrum antibiotics - send UA, urine cultures - f/u blood cultures - transfuse PRBC, platelets, FFP - monitor CBC, coags - continue IVF - monitor urine output, creatinine - O2 to keep SpO2 >90% - monitor CXR for signs of overload - DVT/GI prophylaxis - ICU monitoring for now Thank you for this consult Olivier Mcneil MD
[2017-01-11 17:37] LABS: URINE APPEARANCE SLCLOUDY; URINE BILIRUBIN NEGATIVE (NEGATIVE); URINE COLOR YELLOW; URINE GLUCOSE (UA) NEGATIVE (NEGATIVE); URINE KETONE NEGATIVE (NEGATIVE); URINE LEUK ESTERASE NEGATIVE (NEGATIVE); URINE NITRITE NEGATIVE (NEGATIVE); URINE UROBILINOGEN 2.0 E.U/dl E.U./dl (0.2-1.0)
[2017-01-11 17:55] LABS: URINE BLOOD 3+ (NEGATIVE); URINE PROTEIN 2+ (NEGATIVE)
--- NOTE | 2017-01-11 17:56 | PN ---
Physical Exam: SUBJECTIVE: Patient seen and examined. c/o intermittent chest pain and facial pain. denies SOB, headache, n/v OBJECTIVE: Vital Signs Period Temp Pulse Resp BP Sys/Martinez Pulse Ox Last 24 Hr 98.0 F-100.5 F 18-124 14-20 80-126/47-70 93-98 GENERAL: The patient is awake, alert, and fully oriented, in no acute distress. HEAD: mild swelling over right temporal, maxiallary, frontal areas, ttp, no bleeding, no broken skin. EYES: PERRL, extraocular movements intact, sclera anicteric, conjunctiva clear. No ptosis. ENT: Ears normal, nares patent, oropharynx clear without exudates, moist mucous membranes. NECK: Trachea midline, full range of motion, supple. LUNGS: Breath sounds equal, clear to auscultation bilaterally, no wheezes, no crackles, no accessory muscle use. HEART: Regular rate and rhythm, S1, S2 without murmur, rub or gallop. ABDOMEN: Soft, nontender, nondistended, normoactive bowel sounds EXTREMITIES: 2+ pulses, warm, well-perfused, no edema. NEUROLOGICAL: Normal speech PSYCH: Normal mood, normal affect. SKIN: Warm, dry, normal turgor, no rashes or lesions noted Laboratory Results - last 24 hr 01/11/17 01/11/17 01/11/17 07:48 07:48 07:48 WBC 14.5 H RBC 1.95 L D Hgb 5.9 L* D Hct 17.4 L D MCV 89.3 MCHC 33.9 RDW 14.7 Plt Count 3 L* D MPV 12.0 H D Neutrophils % 15.0 L D Lymphocytes % 59.0 H Monocytes % 15.0 H Differential Comment Manual diff done Blast Cells 15 H D Platelet Estimate Markedly decreased INR 2.00 H PTT (Actin FS) 58.9 H Fibrinogen Fibrin Degrad Products Puncture Site ABG pH ABG pCO2 at Pt Temp ABG pO2 at Pt Temp ABG HCO3 ABG O2 Sat (Measured) ABG O2 Content ABG Base Excess Antonio Test Carboxyhemoglobin Methemoglobin O2 Delivery Device Oxygen Flow Rate Sodium 142 Potassium 3.9 Chloride 107 Carbon Dioxide 25 Anion Gap 10 BUN 33 H Creatinine 3.0 H Creat Clearance w eGFR 21.31 POC Glucometer Random Glucose 156 H Calcium 7.6 L Phosphorus 2.1 L Magnesium 1.7 L Total Bilirubin 1.3 H AST 30 ALT 25 D Alkaline Phosphatase 70 D LD Total Troponin I Total Protein 6.3 L Albumin 2.3 L 01/11/17 01/11/17 01/11/17 07:48 07:48 09:20 WBC RBC Hgb Hct MCV MCHC RDW Plt Count MPV Neutrophils % Lymphocytes % Monocytes % Differential Comment Blast Cells Platelet Estimate INR PTT (Actin FS) Fibrinogen Fibrin Degrad Products Puncture Site Right radial ABG pH 7.46 H ABG pCO2 at Pt Temp 33.2 L ABG pO2 at Pt Temp 66.0 L ABG HCO3 23.3 ABG O2 Sat (Measured) 94.1 ABG O2 Content 4.8 L* ABG Base Excess -0.1 Antonio Test Positive Carboxyhemoglobin 2.0 Methemoglobin 2.6 H O2 Delivery Device Room air Oxygen Flow Rate 21% Sodium Potassium Chloride Carbon Dioxide Anion Gap BUN Creatinine Creat Clearance w eGFR POC Glucometer Random Glucose Calcium Phosphorus Cancelled Magnesium Cancelled Total Bilirubin AST ALT Alkaline Phosphatase LD Total Troponin I 0.12 H D Total Protein Albumin 01/11/17 01/11/17 01/11/17 09:23 11:30 11:30 WBC RBC Hgb Hct MCV MCHC RDW Plt Count MPV Neutrophils % Lymphocytes % Monocytes % Differential Comment Blast Cells Platelet Estimate INR PTT (Actin FS) Fibrinogen 504.0 H Fibrin Degrad Products >10 & <40 Puncture Site ABG pH ABG pCO2 at Pt Temp ABG pO2 at Pt Temp ABG HCO3 ABG O2 Sat (Measured) ABG O2 Content ABG Base Excess Antonio Test Carboxyhemoglobin Methemoglobin O2 Delivery Device Oxygen Flow Rate Sodium Potassium Chloride Carbon Dioxide Anion Gap BUN Creatinine Creat Clearance w eGFR POC Glucometer [id number] Random Glucose Calcium Phosphorus Magnesium Total Bilirubin AST ALT Alkaline Phosphatase LD Total 232 Troponin I Total Protein Albumin Active Medications Generic Name Dose Route Start Last Admin Trade Name Freq PRN Reason Stop Dose Admin Docusate Sodium 100 mg 01/11/17 07:03 01/11/17 10:00 Colace - PO 100 mg BID PRN Administration CONSTIPATION Hydromorphone HCl 1 mg 01/11/17 07:03 01/11/17 08:21 Dilaudid Injection - IVPUSH 1 mg Q4H PRN Administration PAIN Piperacillin Sod/Tazobactam 50 mls @ 100 mls/hr 01/11/17 14:30 Sod 2.25 gm/ Dextrose IVPB Q8H-IV YOMI Protocol Insulin Aspart 1 vial 01/11/17 07:00 01/11/17 15:37 Novolog Vial Sliding Scale - SQ Not Given ACHS YOMI Protocol Sodium Chloride 1,000 ml 01/11/17 00:57 01/11/17 02:09 Normal Saline - IV 1,000 ml Q20M PRN Administration MAP<65mm Hg OR SBP <90 ASSESSMENT/PLAN: 61 yo man with AML(receiving trial chemotherapy, hospice) NIDDM, HTN, HLD, hx of DVT, s/p fall and hematuria admitted for managment of severe sepsis. - Followed at [facility] Dr. Gibson(cell [phone], office [phone]) and Dr. Lomeli - has been on Posaconazole 300 mg PO DAILY Bactrim Ds - 1 tab PO BID , Valganciclovir HCl 450 mg PO BID - bactrim and valganciclover may cause kidney injury, will hold for now #Severe sepsis( MILLER, fever, tachycardia, elevated wbc) - IVF - bld and urine cx pending - renal ultrasound, urine studies to asses MILLER - [place] cath to monitor I&O - started on meropenem, Id consulted Dr. Shea - tacrolimus level in the AM to elevate level #pancytopenia( 5.9/17.4, plts of 3), jade secondary to his AML/chemotherapy - 2 units of prbc's, 2 units ffp, 2 units monoplatelets, vitamin K IVpb - r/o DIC, fibronigen, fibrin degradation products - Dr. Gaytan consulted #Palliative to discuss GOC with family, as patient is hospice/palliative #DM - NISS #HTN - norvasc 5mg with parameters Visit type - Emergency Visit Emergency Visit: No - New Patient This patient is new to me today: Yes Date on this admission: 01/11/17 - Critical Care Critical Care patient: Yes Total Critical Care Time (in minutes): 38 Critical Care Statement: The care of this patient involved high complexity decision making to prevent further life threatening deterioration of the patient 's condition and/or to evalute & treat vital organ system(s) failure or risk of failure.
[2017-01-11 18:14] LABS: URINE RBC 1000 /hpf (0-3); URINE WBC 220 /hpf (3-5)
[2017-01-11] MEDS ORDERED: ACETAMINOPHEN 325 MG TABLET (FP) ONE (18:27)
[2017-01-11] MEDS: ACETAMINOPHEN 325 MG TABLET (FP) PO PRN (18:28)
--- NOTE | 2017-01-11 18:44 | CONSULT ---
Consult Consult Specialty:: infectious diseases Reason for Consultation:: fever pneumonia,sepsis - History of Present Illness Chief Complaint: weakness hematuria History of Present Illness: Pt is a 61 year old male with pmhx of AML, DM, HTN, hyperlipidemia and DVT who got admitted because of weakness and fall associated with hematuria according to the patient he went to receive blood transfusion which he receives routinely Post transfusion patient felt dizzy and started shaking and had a fall. patient was brought to his home where he was extremely tired and fell asleep When he woke up he was found to ahve blood everywhere from his penis. He called his and he was brought to the [facility] Patient was running high grade fever and is severely thrombocytopenic and anemic and is being transfused patient currently very weak and has says he has not eaten for quite some time. patients temp went as high as 105 and he has basim hematuria. spoke with pita on about his condition - History Source History Provided By: Patient, Medical Record Limitations to Obtaining History: No Limitations - Past Medical History Cardio/Vascular: Yes: Deep Vein Thrombosis, HTN, Hyperlipdemia Endocrine: Yes: Diabetes Mellitus - Past Surgical History Additional Surgical History: stem cell transplant - Alcohol/Substance Use Hx Alcohol Use: No - Smoking History Smoking history: Never smoked Have you smoked in the past 12 months: Yes Aproximately how many cigarettes per day: 0 If you are a former smoker, when did you quit?: 2014 - Social History ADL: Independent Occupation: disability, former CLIENT SERVICE COORDINATOR History of Recent Travel: No Home Medications - Allergies Allergies/Adverse Reactions: Allergies Allergy/AdvReac Type Severity Reaction Status Date / Time No Known Allergies Allergy Verified 01/11/17 00:53 - Home Medications Home Medications: Ambulatory Orders Amlodipine Besylate [Norvasc -] 5 mg PO DAILY 01/13/16 Magnesium Oxide [Magnesium] 400 mg PO DAILY 01/13/16 Oxycodone HCl/Acetaminophen [Percocet 5/325 -] 1 tab PO Q8H PRN 01/13/16 Posaconazole [Noxafil] 300 mg PO DAILY 01/13/16 Sulfamethoxazole/Trimethoprim [Bactrim Ds -] 1 tab PO BID 01/13/16 Tacrolimus [Prograf] 0.5 mg PO BID 01/13/16 Ursodiol [Actigal] 300 mg PO BID 01/13/16 Valganciclovir HCl 450 mg PO BID 01/13/16 Family Disease History - Family Disease History Family Disease History: CA: Mother (breast), Other: Father (healthy at 82) Review of Systems - Review of Systems Constitutional: reports: Fever, Lethargy, Weakness Eyes: reports: No Symptoms HENT: reports: No Symptoms Neck: reports: No Symptoms Cardiovascular: reports: No Symptoms Respiratory: reports: No Symptoms Gastrointestinal: reports: No Symptoms Genitourinary: reports: Hematuria Musculoskeletal: reports: No Symptoms Integumentary: reports: No Symptoms Neurological: reports: No Symptoms Endocrine: reports: No Symptoms Hematology/Lymphatic: reports: No Symptoms Psychiatric: reports: No Symptoms Physical Exam Vital Signs: Vital Signs Temperature 99.2 F 01/11/17 15:14 Pulse Rate 124 H 01/11/17 16:00 Respiratory Rate 20 01/11/17 16:00 Blood Pressure 126/65 01/11/17 16:00 O2 Sat by Pulse Oximetry (%) 96 01/11/17 14:42 Constitutional: Yes: Calm, Mild Distress, Thin Eyes: Yes: Conjunctiva Clear HENT: Yes: Atraumatic Neck: Yes: Supple, Trachea Midline Cardiovascular: Yes: Regular Rate and Rhythm Respiratory: Yes: Regular, Poor Air Entry (left side) Gastrointestinal: Yes: Normal Bowel Sounds, Soft Renal/: Yes: Hematuria, Other. No: CVA Tenderness - Left, CVA Tenderness - Right Musculoskeletal: Yes: WNL Extremities: Yes: WNL Neurological: Yes: Alert, Oriented Psychiatric: Yes: Alert Labs: CBC, BMP 01/11/17 07:48 01/11/17 07:48 Imaging - Results Chest X-ray: Report Reviewed, Image Reviewed X-ray: Report Reviewed, Image Reviewed Cat Scan: Report Reviewed, Image Reviewed Other: Report Reviewed, Image Reviewed Assessment/Plan i have looked at the patient history and also at the imaging studies. patient is a very immunocompromised patient with history of BM transplant on tacrolimus. also he has been on posaconazole I do not see any findings on his body. Also i looked at the ct scan there is a possibility that the patient might have pneumonia but i am not sure that there is pneumonic process going on patient had very high grade fever and all the cx ahve been send There is a possibility that this infection could be due to uti or there might be a viral element involved in any case he needs to be covered by broad spectrum abx. also being on posaconazole for a long time throws up possibilities like having fungal pna but looking at ct scan pictures less possibility 1. MILLER 2. 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 DM 5. hyperlipidemia 6. HTN 7. hx DVT 8. hematuria 9. sepsis 10. thrombocytopenia 11. anemia 12 pneumonia renal failure leukocytosis plan will start patient on vanco will add meropenam close watch on fevers await for blood cx keep the fever down by cooling blanket if needed monitor mental status cc time 50 min
--- NOTE | 2017-01-11 19:38 | CON.ENT ---
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 no significant bleeding at the scene brought to hospital, evaluation shows facial fractures on CT scan denies significant prior nasal problems, able to breathe ok on nasal O2 in hospital - History Source History Provided By: Patient, Medical Record Limitations to Obtaining History: No Limitations - Past Medical History Cardio/Vascular: Yes: Deep Vein Thrombosis, HTN, Hyperlipdemia Endocrine: Yes: Diabetes Mellitus - Past Surgical History Additional Surgical History: stem cell transplant - Alcohol/Substance Use Hx Alcohol Use: No - Smoking History Smoking history: Never smoked Have you smoked in the past 12 months: Yes Aproximately how many cigarettes per day: 0 If you are a former smoker, when did you quit?: 2014 - Social History ADL: Independent Occupation: disability, former [employer] History of Recent Travel: No Home Medications - Allergies Allergies/Adverse Reactions: Allergies Allergy/AdvReac Type Severity Reaction Status Date / Time No Known Allergies Allergy Verified 01/11/17 00:53 - Home Medications Home Medications: Ambulatory Orders Amlodipine Besylate [Norvasc -] 5 mg PO DAILY 01/13/16 Magnesium Oxide [Magnesium] 400 mg PO DAILY 01/13/16 Oxycodone HCl/Acetaminophen [Percocet 5/325 -] 1 tab PO Q8H PRN 01/13/16 Posaconazole [Noxafil] 300 mg PO DAILY 01/13/16 Sulfamethoxazole/Trimethoprim [Bactrim Ds -] 1 tab PO BID 01/13/16 Tacrolimus [Prograf] 0.5 mg PO BID 01/13/16 Ursodiol [Actigal] 300 mg PO BID 01/13/16 Valganciclovir HCl 450 mg PO BID 01/13/16 Family Disease History - Family Disease History Family Disease History: CA: Mother (breast), Other: Father (healthy at 82) Physical Exam-ENT Vital Signs: Vital Signs Temperature 102.8 F H 01/11/17 18:58 Pulse Rate 109 H 01/11/17 18:58 Respiratory Rate 24 01/11/17 18:58 Blood Pressure 102/71 02/16/17 18:58 O2 Sat by Pulse Oximetry (%) 99 01/11/17 16:00 Constitutional: Yes: No Distress, Calm, Thin Head: Yes: Other (left brow abrasion, no stepoff, nasal bones tender but midline /symmetric orbital rims and zygomas WNL TMJ ok and no deviation, occlusion ok) Face: Yes: WNL Eyes: Yes: Conjunctiva Clear, EOM Intact Nose: Yes: Other (crusting. nasal dorsum straight but tender to palpation) Nasal Passage: Yes: Other (nasal endoscopy: nasal septum intact with minimal deviation, inferior meati and airways WNL, inferior turbinates dry, crusted, middle turbinates and meati also crusted. NO pus, no active bleeding, superior meati, superior turbinates, and sphenoethmoid recesses not visualized) Oral/Pharynx: Yes: WNL Outer Ear: Yes: WNL Neck: Yes: WNL Respiratory: Yes: WNL Imaging - Results Cat Scan: Report Reviewed (nondisplaced nasal bone fracture, mild deviation of septum, mild thickening maxillary sinus mucosa but no air fluid level, partial opacification right ethmoid sinus, ++left medial orbital wall medially displaced , suggests acute left medial orbital blowout fracture, medial rectus muscle position symmetric.), Image Reviewed (nondisplaced nasal bone fractures. mild edema maxillary sinuses but no air fluid levels. ++left medial wall) Other: Other (Impression: nondisplaced nasal fracture, left medial orbital wall blowout fracture, EOMI denies visual complaints Recommend: nasal saline spray, ophthalmology consultation, no surgical intervention recommended)
--- NOTE | 2017-01-11 20:13 | PN ---
Teaching Attending Note Name of Resident: Jennifer Harrington ATTENDING PHYSICIAN STATEMENT I saw and evaluated the patient. I reviewed the resident's note and discussed the case with the resident. I agree with the resident's findings and plan as documented. SUBJECTIVE: Patient is febrile, feeling very lethargic. presented with fever of 104. OBJECTIVE: Vital Signs Temperature 102.8 F H 01/11/17 18:58 Pulse Rate 109 H 01/11/17 18:58 Respiratory Rate 24 01/11/17 18:58 Blood Pressure 102/71 01/11/17 18:58 O2 Sat by Pulse Oximetry (%) 99 01/11/17 16:00 GENERAL: The patient is awake, alert, and fully oriented, in no acute distress. HEAD: mild swelling over right temporal, maxiallary, frontal areas, no bleeding , no skin laceration. EYES: PERRL, extraocular movements intact, sclera anicteric, conjunctiva clear. ENT: Ears normal, oropharynx clear without exudates, moist mucous membranes. NECK: Trachea midline, full range of motion, supple, no JVD LUNGS: Breath sounds equal, clear to auscultation bilaterally, no wheezes, no crackles, no accessory muscle use. HEART: Regular rate and rhythm, S1, S2 without murmur, rub or gallop. ABDOMEN: Soft, nontender, nondistended, normoactive bowel sounds EXTREMITIES: 2+ pulses, warm, well-perfused, no edema. NEUROLOGICAL: Normal speech PSYCH: Normal mood, normal affect. SKIN: Warm, dry, normal turgor, no rashes or lesions noted CBCD WBC 14.5 K/mm3 (4.0-10.0) H 01/11/17 07:48 RBC 1.95 M/mm3 (4.00-5.60) L D 01/11/17 07:48 Hgb 5.9 GM/dL (11.7-16.9) L* D 01/11/17 07:48 Hct 17.4 % (35.4-49) L D 01/11/17 07:48 MCV 89.3 fl (80-96) 01/11/17 07:48 MCHC 33.9 g/dl (32.0-35.9) 01/11/17 07:48 RDW 14.7 % (11.9-15.9) 01/11/17 07:48 Plt Count 3 K/MM3 (134-434) L* D 01/11/17 07:48 MPV 12.0 fl (7.5-11.1) H D 01/11/17 07:48 CMP Sodium 142 mmol/L (136-145) 01/11/17 07:48 Potassium 3.9 mmol/L (3.5-5.1) 01/11/17 07:48 Chloride 107 mmol/L (98-107) 01/11/17 07:48 Carbon Dioxide 25 mmol/L (21-32) 01/11/17 07:48 Anion Gap 10 (8-16) 01/11/17 07:48 BUN 33 mg/dL (7-18) H 01/11/17 07:48 Creatinine 3.0 mg/dL (0.7-1.3) H 01/11/17 07:48 Creat Clearance w eGFR 21.31 (>60) 01/11/17 07:48 Random Glucose 156 mg/dL (74-106) H 01/11/17 07:48 Calcium 7.6 mg/dL (8.5-10.1) L 01/11/17 07:48 Total Bilirubin 1.3 mg/dL (0.2-1.0) H 01/11/17 07:48 AST 30 U/L (15-37) 01/11/17 07:48 ALT 25 U/L (12-78) D 01/11/17 07:48 Alkaline Phosphatase 70 U/L (45-117) D 01/11/17 07:48 Total Protein 6.3 g/dl (6.4-8.2) L 01/11/17 07:48 Albumin 2.3 g/dl (3.4-5.0) L 01/11/17 07:48 CARDIAC ENZYMES Creatine Kinase 424 IU/L (39-308) H 01/11/17 01:00 Troponin I 0.12 ng/ml (0.00-0.05) H D 01/11/17 07:48 Current Medications Generic Name Dose Route Start Last Admin Trade Name Freq PRN Reason Stop Dose Admin Acetaminophen 650 mg 01/11/17 18:21 01/11/17 18:28 Tylenol - PO 650 mg Q6H PRN Administration FEVER OR PAIN Amlodipine Besylate 5 mg 01/12/17 10:00 Norvasc - PO DAILY [facility] Docusate Sodium 100 mg 01/11/17 07:03 01/11/17 10:00 Colace - PO 100 mg BID PRN Administration CONSTIPATION Hydromorphone HCl 1 mg 01/11/17 07:03 01/11/17 08:21 Dilaudid Injection - IVPUSH 1 mg Q4H PRN Administration PAIN Meropenem 1 gm/ Dextrose 100 mls @ 250 mls/hr 01/11/17 22:00 IVPB BID [facility] Protocol Insulin Aspart 1 vial 01/11/17 07:00 01/11/17 18:19 Novolog Vial Sliding Scale - SQ Not Given ACHS [facility] Protocol Magnesium Oxide 400 mg 01/12/17 10:00 Mag-Ox - PO DAILY [facility] Non-Formulary Medication 300 mg 01/12/17 10:00 Posaconazole [Noxafil] PO DAILY [facility] Sodium Chloride 1,000 ml 01/11/17 00:57 01/11/17 02:09 Normal Saline - IV 1,000 ml Q20M PRN Administration MAP<65mm Hg OR SBP <90 Sodium Chloride 2 spray 01/11/17 22:00 [place] Nasal [place] - NS BID [facility] Ursodiol 300 mg 01/11/17 22:00 Actigal - PO BID [facility] Vancomycin HCl 1,000 mg 01/13/17 05:00 Vancomycin (Pre-Docked) IVPB Q48H [facility] Home Medications Medication Instructions Recorded Amlodipine Besylate [Norvasc -] 5 mg PO DAILY 01/13/16 Magnesium Oxide [Magnesium] 400 mg PO DAILY 01/13/16 Oxycodone HCl/Acetaminophen 1 tab PO Q8H PRN 01/13/16 [Percocet 5/325 -] Posaconazole [Noxafil] 300 mg PO DAILY 01/13/16 Sulfamethoxazole/Trimethoprim 1 tab PO BID 01/13/16 [Bactrim Ds -] Tacrolimus [Prograf] 0.5 mg PO BID 01/13/16 Ursodiol [Actigal] 300 mg PO BID 01/13/16 Valganciclovir HCl 450 mg PO BID 01/13/16 ASSESSMENT AND PLAN: 61 yo M with significant PMHx of AML, NIDDM, HTN, HLD, and DVT, admitted for management of severe sepsis. #Acute Severe sepsis( fever of 104 presented with , tachycardia, elevated wbc) with Acute renal failure ; Blood culture,UA,urine culture , ID was consulted. on Vancomycin/Meropenem. #Acute pancytopenia( 5.9/17.4, plts of 3),due to experimental therapy that was given s/p STem cell transplant , due to his AML/chemotherapy - improved s/p transfusions s/p tansfusion of FFP 2 units, platelets 2 units, 2 units of PRBC, ordered Ferritin, Fibrinogen, Haptoglobulin, DIC w/u , Oncology consult discussed with. As per oncology to hold prograf, to continue Noxafil # Acute renal failure consulted dr Linn ; prograf level was send # Facial Trauma s/p fall ENT consulted #DM ;NISS #HTN ; monitor , on norvasc 5mg with parameters #Palliative consult to discuss with family for possible hospice critical care time of 35 minutes
[2017-01-11] MEDS: SODIUM CHLORIDE NASAL SPRAY 44 ML BOTTLE NS SCH (22:00)
[2017-01-11] MEDS: URSODIOL 300 MG CAPSULE PO SCH (22:00)
[2017-01-11] MEDS: MEROPENEM 1 GM in DEXTROSE 5%-WATER - 100 ML IVPB SCH (22:00)
[2017-01-12 02:34] LABS: MCH 30.5 pg (25.7-33.7); MCHC 34.4 g/dl (32.0-35.9); MEAN CELL VOLUME 88.7 fl (80-96); MEAN PLT VOLUME 9.1 fl (7.5-11.1); PLATELET COUNT 75 K/MM3 (134-434); RDW 14.2 % (11.9-15.9); WHITE BLOOD COUNT 9.9 K/mm3 (4.0-10.0)
[2017-01-12] MEDS: INSULIN SLIDING SCALE (NOVOLOG) 1 VIAL SQ SCH ×5 (05:14→21:18)
[2017-01-12 06:41] LABS: MCH 30.5 pg (25.7-33.7); MCHC 35.1 g/dl (32.0-35.9); MEAN CELL VOLUME 86.9 fl (80-96); MEAN PLT VOLUME 9.2 fl (7.5-11.1); PLATELET COUNT 62 K/MM3 (134-434); RDW 14.3 % (11.9-15.9); WHITE BLOOD COUNT 8.6 K/mm3 (4.0-10.0)
[2017-01-12 06:46] LABS: ALBUMIN 2.2 g/dl (3.4-5.0); BILIRUBIN,TOTAL 1.1 mg/dL (0.2-1.0); CALCIUM 7.6 mg/dL (8.5-10.1); CREATININE 2.5 mg/dL (0.7-1.3)
[2017-01-12 07:01] LABS: INR 1.53 (0.82-1.09)
[2017-01-12 07:02] LABS: ACTIVATED PTT 46.2 SECONDS (26.9-34.4)
[2017-01-12 07:12] LABS: TROPONIN I 0.13 ng/ml (0.00-0.05)
--- NOTE | 2017-01-12 09:18 | PN ---
History of Present Illness: AML on investigational therapy. Patient presents septic with anemia, thrombocytopenia, pulmonary infiltrate, renal insufficiency, and coagulopathy. Transfused packed cells, platelets, ,FFP. Begun on Meripenem, and Vancomycin. - Review of Systems Constitutional: reports: Loss of Appetite, Unintentional Wgt. Loss, Weakness Eyes: reports: Double Vision, Other (left eye) HENT: reports: Difficult Swallowing. denies: Epistaxis, Throat Pain Neck: denies: Stiffness, Swollen Glands, Tenderness Cardiovascular: reports: Chest Pain, Shortness of Breath Respiratory: reports: SOB, SOB on Exertion. denies: Hemoptysis Gastrointestinal: reports: Diarrhea Genitourinary: reports: Hematuria Musculoskeletal: reports: Muscle Weakness. denies: Back Pain, Extremity Pain, Muscle Pain Integumentary: denies: Blister, Erythema Neurological: reports: Weakness. denies: Change in Speech, Confusion, Dizziness , Headache, Tremors Endocrine: reports: No Symptoms Hematology/Lymphatic: reports: Excessive Bleeding - Medications/Allergies Allergies/Adverse Reactions: Allergies Allergy/AdvReac Type Severity Reaction Status Date / Time No Known Allergies Allergy Verified 01/11/17 00:53 Medications: Current Medications Acetaminophen (Tylenol -) 650 mg PO Q6H PRN PRN Reason: FEVER OR PAIN Last Admin: 01/11/17 18:28 Dose: 650 mg Amlodipine Besylate (Norvasc -) 5 mg PO DAILY [facility] Docusate Sodium (Colace -) 100 mg PO BID PRN PRN Reason: CONSTIPATION Last Admin: 01/11/17 10:00 Dose: 100 mg Hydromorphone HCl (Dilaudid Injection -) 1 mg IVPUSH Q4H PRN PRN Reason: PAIN Last Admin: 01/11/17 08:21 Dose: 1 mg Meropenem 1 gm/ Dextrose 100 mls @ 250 mls/hr IVPB BID [facility] PRN Reason: Protocol Last Admin: 01/11/17 22:00 Dose: 250 mls/hr Insulin Aspart (Novolog Vial Sliding Scale -) 1 vial SQ ACHS [facility] PRN Reason: Protocol Last Admin: 01/12/17 07:25 Dose: Not Given Magnesium Oxide (Mag-Ox -) 400 mg PO DAILY [facility] Non-Formulary Medication (Posaconazole [Noxafil]) 300 mg PO DAILY [facility] Non-Formulary Medication (Tacrolimus [Prograf]) 0.5 mg PO BID [facility] Sodium Chloride (Normal Saline -) 1,000 ml IV Q20M PRN PRN Reason: MAP<65mm Hg OR SBP <90 Last Admin: 01/11/17 02:09 Dose: 1,000 ml Sodium Chloride ([place] Nasal [place] -) 2 spray NS BID [facility] Last Admin: 01/11/17 22:00 Dose: Not Given Ursodiol (Actigal -) 300 mg PO BID [facility] Last Admin: 01/11/17 22:00 Dose: Not Given Vancomycin HCl (Vancomycin (Pre-Docked)) 1,000 mg IVPB Q48H [facility] - Objective Vital Signs: Vital Signs Temperature 99.2 F 01/12/17 00:35 Pulse Rate 96 H 01/12/17 06:00 Respiratory Rate 18 01/12/17 06:00 Blood Pressure 111/59 01/12/17 06:00 O2 Sat by Pulse Oximetry (%) 98 01/11/17 20:44 Constitutional: Yes: Mild Distress Eyes: Yes: Diplopia, Other (left eye) HENT: Yes: Normocephalic, Other (coated tongue). No: Epistaxis, Hoarseness, Tonsillar Exudate Neck: Yes: Supple. No: Lymphadenopathy, Tenderness Cardiovascular: Yes: Regular Rate and Rhythm Respiratory: Yes: Diminished Gastrointestinal: Yes: Normal Bowel Sounds, Soft. No: Ascites, Hepatomegaly, Palpable Mass, Splenomegaly Genitourinary: No: CVA Tenderness - Left, CVA Tenderness - Right Musculoskeletal: No: Back Pain, Muscle Pain Extremities: No: Calf Tenderness, Deformity Edema: No Integumentary: No: Bruising, Erythema, Jaundice Neurological: Yes: Alert, Oriented, Other (Diplopia left eye) ...Motor Strength: WNL Psychiatric: Yes: WNL Labs: CBC, BMP 01/12/17 05:35 01/12/17 05:35 Assessment/Plan AML On investigational therpy. Continue per protocol Anemia Hct 23 % s/p transfusion . Will give additional unit of packed cells. Presumably secondary to marrow replacement and therapy. Sepsis Cultured and begun on Vancomycin and Meripenem. On Antifungal prophylaxis- would continue Nosifil. Coated tongue - to add nystatin. Continue current regimen per I.D. Thrombocytopenia S/p transfusion therapy. Presented with hematuria and platelet count of 3K. Platelet rsponse satisfactory. To monitor. Diplopia Complains of left eye diplopia. Head CT- non contrast negative,but worrisome in setting of AML. Will need to be assessed in future. Diarrhea. To culture stools Coagulopathy Received Vitamin K and FFP with some correction . ?? secondary to sepsis For additional FFP. Pneumonia LLL consolidation Sinusitis Ab per I.D.
[2017-01-12] MEDS: MEROPENEM 1 GM in DEXTROSE 5%-WATER - 100 ML IVPB SCH ×2 (09:27→21:18)
[2017-01-12] MEDS: URSODIOL 300 MG CAPSULE PO SCH ×2 (09:27→21:18)
[2017-01-12] MEDS: amLODIPine BESYLATE 5 MG TABLET (FP) PO SCH (09:31)
[2017-01-12] MEDS: MAGNESIUM OXIDE 400 MG TABLET (FP) PO SCH (09:31)
[2017-01-12] MEDS: HYDROmorphone HCL CARPU-JECT 1 MG/1 ML DISP.SYRIN IVPUSH PRN (09:32)
[2017-01-12] MEDS: SODIUM CHLORIDE NASAL SPRAY 44 ML BOTTLE NS SCH ×2 (09:33→21:19)
[2017-01-12 09:44] LABS: PLATELET ESTIMATE DECREASED (NORMAL)
--- NOTE | 2017-01-12 09:54 | PN ---
Progress Note (short form) - Note Progress Note: Spoke with study people at [facility] To hold Prograf and to hold study drug.
[2017-01-12] MEDS ORDERED: POSACONAZOLE 300 MG PO SCH (10:00)
[2017-01-12] MEDS ORDERED: TACROLIMUS 0.5 MG CAPSULE (NF) PO SCH (10:00)
[2017-01-12] MEDS: NYSTATIN 500,000 UNITS/5 ML SUSPENSION PO SCH ×2 (12:02→17:17)
--- NOTE | 2017-01-12 13:26 | PN ---
Teaching Attending Note Name of Resident: Chad Stover ATTENDING PHYSICIAN STATEMENT I saw and evaluated the patient. I reviewed the resident's note and discussed the case with the resident. I agree with the resident's findings and plan as documented. SUBJECTIVE: Patient sen and examined in the ICU. Awake and alert. Blood pressures improving with volume resuscitation. Some discomfort around the orbit. Reports significant cough but unable to expectorate. Intake & Output 01/09/17 01/10/17 01/11/17 01/12/17 23:59 23:59 23:59 23:59 Intake Total 3850 600 Output Total 900 1000 Balance 2950 -400 Weight 150 lb 148 lb Last Vital Signs Temp Pulse Resp BP Pulse Ox 99.5 F 100 H 18 105/91 98 01/12/17 12:00 01/12/17 12:49 01/12/17 12:49 01/12/17 12:49 01/12/17 09:00 Active Medications Acetaminophen (Tylenol -) 650 mg PO Q6H PRN PRN Reason: FEVER OR PAIN Last Admin: 01/11/17 18:28 Dose: 650 mg Amlodipine Besylate (Norvasc -) 5 mg PO DAILY [facility] Last Admin: 01/12/17 09:31 Dose: 5 mg Docusate Sodium (Colace -) 100 mg PO BID PRN PRN Reason: CONSTIPATION Last Admin: 01/11/17 10:00 Dose: 100 mg Hydromorphone HCl (Dilaudid Injection -) 1 mg IVPUSH Q4H PRN PRN Reason: PAIN Last Admin: 01/12/17 09:32 Dose: 1 mg Meropenem 1 gm/ Dextrose 100 mls @ 250 mls/hr IVPB BID [facility] PRN Reason: Protocol Last Admin: 01/12/17 09:27 Dose: 250 mls/hr Insulin Aspart (Novolog Vial Sliding Scale -) 1 vial SQ ACHS [facility] PRN Reason: Protocol Last Admin: 01/12/17 11:02 Dose: Not Given Magnesium Oxide (Mag-Ox -) 400 mg PO DAILY [facility] Last Admin: 01/12/17 09:31 Dose: 400 mg Non-Formulary Medication (Posaconazole [Noxafil]) 300 mg PO DAILY [facility] Nystatin (Nystatin Oral Suspension -) 500,000 units PO Q6HPO [facility] Last Admin: 01/12/17 12:02 Dose: 500,000 units Sodium Chloride (Normal Saline -) 1,000 ml IV Q20M PRN PRN Reason: MAP<65mm Hg OR SBP <90 Last Admin: 01/11/17 02:09 Dose: 1,000 ml Sodium Chloride ([place] Nasal [place] -) 2 spray NS BID [facility] Last Admin: 01/12/17 09:33 Dose: 2 spray Ursodiol (Actigal -) 300 mg PO BID [facility] Last Admin: 01/12/17 09:27 Dose: 300 mg Vancomycin HCl (Vancomycin (Pre-Docked)) 1,000 mg IVPB Q48H [facility] Constitutional: Yes: Awake and alert. mildly tachypneic at rest Eyes: Yes: Conjunctiva Clear, EOM Intact HENT: Yes: Atraumatic, Normocephalic Neck: Yes: Supple, Trachea Midline Cardiovascular: Yes: Tachycardia Respiratory: Yes: Basilar rhonchi Gastrointestinal: Yes: Normal Bowel Sounds, Soft. No: Tenderness Edema: No Neurological: Yes: Alert, Oriented Labs: Laboratory Results - last 24 hr 01/11/17 01/11/17 01/11/17 01:00 01:50 02:30 WBC RBC Hgb Hct MCV MCHC RDW Plt Count MPV Neutrophils % Lymphocytes % Monocytes % Band Neutrophils Blast Cells Platelet Estimate Haptoglobin INR PTT (Actin FS) Fibrinogen VBG pH 7.46 H POC VBG pCO2 39.7 POC VBG pO2 18.4 L* Mixed VBG HCO3 27.7 H Sodium Potassium Chloride Carbon Dioxide Anion Gap BUN Creatinine Creat Clearance w eGFR Random Glucose Lactic Acid 1.873 Calcium Total Bilirubin AST ALT Alkaline Phosphatase LD Total Creatine Kinase Creatine Kinase Index CK-MB (CK-2) CK-MB (CK-2) Rel Index Troponin I Total Protein Albumin Urine Color Urine Appearance Urine pH Ur Specific [place] Urine Protein Urine Glucose (UA) Urine Ketones Urine Blood Urine Nitrite Urine Bilirubin Urine Urobilinogen Ur Leukocyte Esterase Urine RBC Urine WBC Ur Epithelial Cells Ur Random Sodium Ur Random Potassium Ur Random Chloride Urine Creatinine Blood Type A NEGATIVE Antibody Screen Negative Direct Antiglob Test Crossmatch See Detail 01/11/17 01/11/17 01/11/17 11:30 17:00 17:00 WBC RBC Hgb Hct MCV MCHC RDW Plt Count MPV Neutrophils % Lymphocytes % Monocytes % Band Neutrophils Blast Cells Platelet Estimate Haptoglobin 329 H INR PTT (Actin FS) Fibrinogen VBG pH POC VBG pCO2 POC VBG pO2 Mixed VBG HCO3 Sodium Potassium Chloride Carbon Dioxide Anion Gap BUN Creatinine Creat Clearance w eGFR Random Glucose Lactic Acid Calcium Total Bilirubin AST ALT Alkaline Phosphatase LD Total Creatine Kinase Creatine Kinase Index CK-MB (CK-2) CK-MB (CK-2) Rel Index Troponin I Total Protein Albumin Urine Color Yellow Urine Appearance Slcloudy Urine pH 5.0 Ur Specific [place] 1.016 Urine Protein 2+ H Urine Glucose (UA) Negative Urine Ketones Negative Urine Blood 3+ H Urine Nitrite Negative Urine Bilirubin Negative Urine Urobilinogen 2.0 e.u/dl Ur Leukocyte Esterase Negative Urine RBC 1000 Urine WBC 220 Ur Epithelial Cells Rare Ur Random Sodium 43 Ur Random Potassium 33.9 Ur Random Chloride 43 Urine Creatinine Blood Type Antibody Screen Direct Antiglob Test Crossmatch 01/11/17 01/12/17 01/12/17 17:00 01:50 05:35 WBC 9.9 D 8.6 RBC 2.61 L D 2.60 L Hgb 8.0 L D 7.9 L Hct 23.2 L D 22.6 L MCV 88.7 86.9 MCHC 34.4 35.1 RDW 14.2 14.3 Plt Count 75 L D 62 L MPV 9.1 D 9.2 Neutrophils % 11.0 L D Lymphocytes % 56.0 H Monocytes % 25.0 H Band Neutrophils 1.0 D Blast Cells 7 H D Platelet Estimate Decreased Haptoglobin INR PTT (Actin FS) Fibrinogen VBG pH POC VBG pCO2 POC VBG pO2 Mixed VBG HCO3 Sodium Potassium Chloride Carbon Dioxide Anion Gap BUN Creatinine Creat Clearance w eGFR Random Glucose Lactic Acid Calcium Total Bilirubin AST ALT Alkaline Phosphatase LD Total Creatine Kinase Creatine Kinase Index CK-MB (CK-2) CK-MB (CK-2) Rel Index Troponin I Total Protein Albumin Urine Color Urine Appearance Urine pH Ur Specific [place] Urine Protein Urine Glucose (UA) Urine Ketones Urine Blood Urine Nitrite Urine Bilirubin Urine Urobilinogen Ur Leukocyte Esterase Urine RBC Urine WBC Ur Epithelial Cells Ur Random Sodium Ur Random Potassium Ur Random Chloride Urine Creatinine 115.0 Blood Type Antibody Screen Direct Antiglob Test Crossmatch 01/12/17 01/12/17 01/12/17 05:35 05:35 05:35 WBC RBC Hgb Hct MCV MCHC RDW Plt Count MPV Neutrophils % Lymphocytes % Monocytes % Band Neutrophils Blast Cells Platelet Estimate Haptoglobin INR 1.53 H PTT (Actin FS) 46.2 H Fibrinogen VBG pH POC VBG pCO2 POC VBG pO2 Mixed VBG HCO3 Sodium 144 Potassium 3.8 Chloride 108 H Carbon Dioxide 27 Anion Gap 9 BUN 32 H Creatinine 2.5 H Creat Clearance w eGFR 26.30 Random Glucose 156 H Lactic Acid Calcium 7.6 L Total Bilirubin 1.1 H AST 33 ALT 28 Alkaline Phosphatase 61 LD Total 233 Creatine Kinase Creatine Kinase Index CK-MB (CK-2) CK-MB (CK-2) Rel Index Troponin I Total Protein 6.0 L Albumin 2.2 L Urine Color Urine Appearance Urine pH Ur Specific [place] Urine Protein Urine Glucose (UA) Urine Ketones Urine Blood Urine Nitrite Urine Bilirubin Urine Urobilinogen Ur Leukocyte Esterase Urine RBC Urine WBC Ur Epithelial Cells Ur Random Sodium Ur Random Potassium Ur Random Chloride Urine Creatinine Blood Type Antibody Screen Direct Antiglob Test Negative Crossmatch See Detail 01/12/17 01/12/17 01/12/17 05:35 05:35 05:35 WBC RBC Hgb Hct MCV MCHC RDW Plt Count MPV Neutrophils % Lymphocytes % Monocytes % Band Neutrophils Blast Cells Platelet Estimate Haptoglobin INR PTT (Actin FS) Fibrinogen 688.0 H VBG pH POC VBG pCO2 POC VBG pO2 Mixed VBG HCO3 Sodium Potassium Chloride Carbon Dioxide Anion Gap BUN Creatinine Creat Clearance w eGFR Random Glucose Lactic Acid 1.542 Calcium Total Bilirubin AST ALT Alkaline Phosphatase LD Total Creatine Kinase 310 H D Creatine Kinase Index 0.3 CK-MB (CK-2) 1.037 CK-MB (CK-2) Rel Index Troponin I 0.13 H Total Protein Albumin Urine Color Urine Appearance Urine pH Ur Specific [place] Urine Protein Urine Glucose (UA) Urine Ketones Urine Blood Urine Nitrite Urine Bilirubin Urine Urobilinogen Ur Leukocyte Esterase Urine RBC Urine WBC Ur Epithelial Cells Ur Random Sodium Ur Random Potassium Ur Random Chloride Urine Creatinine Blood Type Antibody Screen Direct Antiglob Test Crossmatch 01/12/17 05:35 WBC RBC Hgb Hct MCV MCHC RDW Plt Count MPV Neutrophils % Lymphocytes % Monocytes % Band Neutrophils Blast Cells Platelet Estimate Haptoglobin INR PTT (Actin FS) Fibrinogen VBG pH POC VBG pCO2 POC VBG pO2 Mixed VBG HCO3 Sodium Potassium Chloride Carbon Dioxide Anion Gap BUN Creatinine Creat Clearance w eGFR Random Glucose Lactic Acid Calcium Total Bilirubin AST ALT Alkaline Phosphatase LD Total Creatine Kinase Creatine Kinase Index CK-MB (CK-2) CK-MB (CK-2) Rel Index Cancelled Troponin I Total Protein Albumin Urine Color Urine Appearance Urine pH Ur Specific [place] Urine Protein Urine Glucose (UA) Urine Ketones Urine Blood Urine Nitrite Urine Bilirubin Urine Urobilinogen Ur Leukocyte Esterase Urine RBC Urine WBC Ur Epithelial Cells Ur Random Sodium Ur Random Potassium Ur Random Chloride Urine Creatinine Blood Type Antibody Screen Direct Antiglob Test Crossmatch Assessment/Plan LLL Pneumonia Severe Sepsis Acute on Chronic Renal Failure AML Severe Anemia Severe Thrombocytopenia h/o DVT - broad spectrum antibiotics per ID - Follow cultures - Transfusional support - IVF - monitor urine output, creatinine - O2 to keep SpO2 >90% - DVT/GI prophylaxis - Pain control - Incentive Spirometry Dr Walker CCTime 35"
--- NOTE | 2017-01-12 13:26 | PN ---
Physical Exam: SUBJECTIVE: Patient seen and examined at bedside in ICU. AAO and states he feels much better today. Less lethargic and with improved breathing. Afebrile after midnight last night. BP stable without pressors and with only maintenance fluid. OBJECTIVE: Vital Signs Period Temp Pulse Resp BP Sys/Martinez Pulse Ox Last 24 Hr 98.4 F-102.8 F 88-124 18-24 90-126/50-91 96-99 GENERAL: The patient is awake, alert, and fully oriented, in no acute distress. HEENT: EOMI, PERRLA, Left sided diplopia, TTP bilateral maxillary, moist membranes LUNGS: mildly diminished breath sounds HEART: RRR, S1S2 ABDOMEN: Soft, nontender, nondistended, normoactive bowel sounds EXTREMITIES: 2+ pulses, warm, well-perfused, no edema. NEUROLOGICAL: Cranial nerves II through XII grossly intact. Normal speech, gait not observed. PSYCH: Normal mood, normal affect. SKIN: Warm, dry, normal turgor, no rashes or lesions noted Laboratory Results - last 24 hr 01/11/17 01/11/17 01/11/17 11:30 17:00 17:00 WBC RBC Hgb Hct MCV MCHC RDW Plt Count MPV Neutrophils % Lymphocytes % Monocytes % Band Neutrophils Blast Cells Platelet Estimate Haptoglobin 329 H INR PTT (Actin FS) Fibrinogen Sodium Potassium Chloride Carbon Dioxide Anion Gap BUN Creatinine Creat Clearance w eGFR Random Glucose Lactic Acid Calcium Total Bilirubin AST ALT Alkaline Phosphatase LD Total Creatine Kinase Creatine Kinase Index CK-MB (CK-2) CK-MB (CK-2) Rel Index Troponin I Total Protein Albumin Urine Color Yellow Urine Appearance Slcloudy Urine pH 5.0 Ur Specific [place] 1.016 Urine Protein 2+ H Urine Glucose (UA) Negative Urine Ketones Negative Urine Blood 3+ H Urine Nitrite Negative Urine Bilirubin Negative Urine Urobilinogen 2.0 e.u/dl Ur Leukocyte Esterase Negative Urine RBC 1000 Urine WBC 220 Ur Epithelial Cells Rare Ur Random Sodium 43 Ur Random Potassium 33.9 Ur Random Chloride 43 Urine Creatinine Direct Antiglob Test Crossmatch 01/11/17 01/12/17 01/12/17 17:00 01:50 05:35 WBC 9.9 D 8.6 RBC 2.61 L D 2.60 L Hgb 8.0 L D 7.9 L Hct 23.2 L D 22.6 L MCV 88.7 86.9 MCHC 34.4 35.1 RDW 14.2 14.3 Plt Count 75 L D 62 L MPV 9.1 D 9.2 Neutrophils % 11.0 L D Lymphocytes % 56.0 H Monocytes % 25.0 H Band Neutrophils 1.0 D Blast Cells 7 H D Platelet Estimate Decreased Haptoglobin INR PTT (Actin FS) Fibrinogen Sodium Potassium Chloride Carbon Dioxide Anion Gap BUN Creatinine Creat Clearance w eGFR Random Glucose Lactic Acid Calcium Total Bilirubin AST ALT Alkaline Phosphatase LD Total Creatine Kinase Creatine Kinase Index CK-MB (CK-2) CK-MB (CK-2) Rel Index Troponin I Total Protein Albumin Urine Color Urine Appearance Urine pH Ur Specific [place] Urine Protein Urine Glucose (UA) Urine Ketones Urine Blood Urine Nitrite Urine Bilirubin Urine Urobilinogen Ur Leukocyte Esterase Urine RBC Urine WBC Ur Epithelial Cells Ur Random Sodium Ur Random Potassium Ur Random Chloride Urine Creatinine 115.0 Direct Antiglob Test Crossmatch 01/12/17 01/12/17 01/12/17 05:35 05:35 05:35 WBC RBC Hgb Hct MCV MCHC RDW Plt Count MPV Neutrophils % Lymphocytes % Monocytes % Band Neutrophils Blast Cells Platelet Estimate Haptoglobin INR 1.53 H PTT (Actin FS) 46.2 H Fibrinogen Sodium 144 Potassium 3.8 Chloride 108 H Carbon Dioxide 27 Anion Gap 9 BUN 32 H Creatinine 2.5 H Creat Clearance w eGFR 26.30 Random Glucose 156 H Lactic Acid Calcium 7.6 L Total Bilirubin 1.1 H AST 33 ALT 28 Alkaline Phosphatase 61 LD Total 233 Creatine Kinase Creatine Kinase Index CK-MB (CK-2) CK-MB (CK-2) Rel Index Troponin I Total Protein 6.0 L Albumin 2.2 L Urine Color Urine Appearance Urine pH Ur Specific [place] Urine Protein Urine Glucose (UA) Urine Ketones Urine Blood Urine Nitrite Urine Bilirubin Urine Urobilinogen Ur Leukocyte Esterase Urine RBC Urine WBC Ur Epithelial Cells Ur Random Sodium Ur Random Potassium Ur Random Chloride Urine Creatinine Direct Antiglob Test Negative Crossmatch See Detail 01/12/17 01/12/17 01/12/17 05:35 05:35 05:35 WBC RBC Hgb Hct MCV MCHC RDW Plt Count MPV Neutrophils % Lymphocytes % Monocytes % Band Neutrophils Blast Cells Platelet Estimate Haptoglobin INR PTT (Actin FS) Fibrinogen 688.0 H Sodium Potassium Chloride Carbon Dioxide Anion Gap BUN Creatinine Creat Clearance w eGFR Random Glucose Lactic Acid 1.542 Calcium Total Bilirubin AST ALT Alkaline Phosphatase LD Total Creatine Kinase 310 H D Creatine Kinase Index 0.3 CK-MB (CK-2) 1.037 CK-MB (CK-2) Rel Index Troponin I 0.13 H Total Protein Albumin Urine Color Urine Appearance Urine pH Ur Specific [place] Urine Protein Urine Glucose (UA) Urine Ketones Urine Blood Urine Nitrite Urine Bilirubin Urine Urobilinogen Ur Leukocyte Esterase Urine RBC Urine WBC Ur Epithelial Cells Ur Random Sodium Ur Random Potassium Ur Random Chloride Urine Creatinine Direct Antiglob Test Crossmatch Active Medications Generic Name Dose Route Start Last Admin Trade Name Freq PRN Reason Stop Dose Admin Acetaminophen 650 mg 01/11/17 18:21 01/11/17 18:28 Tylenol - PO 650 mg Q6H PRN Administration FEVER OR PAIN Amlodipine Besylate 5 mg 01/12/17 10:00 01/12/17 09:31 Norvasc - PO 5 mg DAILY YOMI Administration Docusate Sodium 100 mg 01/11/17 07:03 01/11/17 10:00 Colace - PO 100 mg BID PRN Administration CONSTIPATION Hydromorphone HCl 1 mg 01/11/17 07:03 01/12/17 09:32 Dilaudid Injection - IVPUSH 1 mg Q4H PRN Administration PAIN Meropenem 1 gm/ Dextrose 100 mls @ 250 mls/hr 01/11/17 22:00 01/12/17 09:27 IVPB 250 mls/hr BID [facility] Administration Protocol Insulin Aspart 1 vial 01/11/17 07:00 01/12/17 11:02 Novolog Vial Sliding Scale - SQ Not Given ACHS [facility] Protocol Magnesium Oxide 400 mg 01/12/17 10:00 01/12/17 09:31 Mag-Ox - PO 400 mg DAILY YOMI Administration Non-Formulary Medication 300 mg 01/12/17 10:00 Posaconazole [Noxafil] PO DAILY [facility] Nystatin 500,000 units 01/12/17 12:00 01/12/17 12:02 Nystatin Oral Suspension - PO 500,000 units Q6HPO YOMI Administration Sodium Chloride 1,000 ml 01/11/17 00:57 01/11/17 02:09 Normal Saline - IV 1,000 ml Q20M PRN Administration MAP<65mm Hg OR SBP <90 Sodium Chloride 2 spray 01/11/17 22:00 01/12/17 09:33 [place] Nasal [place] - NS 2 spray BID YOMI Administration Ursodiol 300 mg 01/11/17 22:00 01/12/17 09:27 Actigal - PO 300 mg BID YOMI Administration Vancomycin HCl 1,000 mg 01/13/17 05:00 Vancomycin (Pre-Docked) IVPB Q48H YOMI ASSESSMENT/PLAN: 61 year old male with PMH of AML (On experimental trial/Tacrolimus, Hospice), DM. HTN, HLD, DVT who presents to ICU for management of severe sepsis. Patient had mechanicall fall on ice severla days ago with blowout fracture of left orbit. #Severe Sepsis, possibluy related to Pneumonia, UTI? -On wide spectrum antibiotics, Vancomycin & Meropenem -Blood cultures (-), Influenza (-), Urine culture pending -IVF NS for maintenance, bolus if MAP <65 -ID consult appreciated -continue Nystatin, Posaconazole #Acute Kidney Injury with Hematuria -Creatinine improving, 3-->2.5 -bladder & kidney US reviewed -FeNa .79, likely pre-renal etiology -holding Bactrim & Valganciclovir for now -Strict I's & O's #Pancytopenia, seocndary to AML/Chemotherapy/trial -given 2units PRBC, 2units Platelets, 2units FFP, Vitamin K -today will give 2 more FFP and 2 more PRBC -heme/oncology consult appreciated -Dr Gaytan confirmed with [facility] that we can stop Tacrolimus & experimental trial for now #Mechanical fall w/ facial fractures -seen by ENT, does not require surgery -needs to see supervisor fertilizer for left sided diplopia following fracture of orbit #Hypertension -continue Norvasc 5mg #Diabetes Mellitus -insulin sliding scale -FSBG ACHS #Diarrhea -will test for CC Diff Prophylaxis/FEN -SCD's, -IVF NS@100 ml/hr, giving MgOx daily, NPO Visit type - Emergency Visit Emergency Visit: Yes ED Registration Date: 01/11/17 Care time: The patient presented to the Emergency Department on the above date and was hospitalized for further evaluation of their emergent condition. - New Patient This patient is new to me today: Yes Date on this admission: 01/12/17 - Critical Care Critical Care patient: Yes Total Critical Care Time (in minutes): 45 Critical Care Statement: The care of this patient involved high complexity decision making to prevent further life threatening deterioration of the patient 's condition and/or to evalute & treat vital organ system(s) failure or risk of failure.
--- NOTE | 2017-01-12 13:29 | PN ---
Progress Note, Physician History of Present Illness: Pt seen and examined at bedside. He is awake and alert. He feels much better than he did yesterday. He feels his shortness of breath is improved. - Current Medication List Current Medications: Active Medications Acetaminophen (Tylenol -) 650 mg PO Q6H PRN PRN Reason: FEVER OR PAIN Last Admin: 01/11/17 18:28 Dose: 650 mg Amlodipine Besylate (Norvasc -) 5 mg PO DAILY [facility] Last Admin: 01/12/17 09:31 Dose: 5 mg Docusate Sodium (Colace -) 100 mg PO BID PRN PRN Reason: CONSTIPATION Last Admin: 01/11/17 10:00 Dose: 100 mg Hydromorphone HCl (Dilaudid Injection -) 1 mg IVPUSH Q4H PRN PRN Reason: PAIN Last Admin: 01/12/17 09:32 Dose: 1 mg Meropenem 1 gm/ Dextrose 100 mls @ 250 mls/hr IVPB BID YOMI PRN Reason: Protocol Last Admin: 01/12/17 09:27 Dose: 250 mls/hr Insulin Aspart (Novolog Vial Sliding Scale -) 1 vial SQ ACHS YOMI PRN Reason: Protocol Last Admin: 01/12/17 11:02 Dose: Not Given Magnesium Oxide (Mag-Ox -) 400 mg PO DAILY [facility] Last Admin: 01/12/17 09:31 Dose: 400 mg Non-Formulary Medication (Posaconazole [Noxafil]) 300 mg PO DAILY [facility] Nystatin (Nystatin Oral Suspension -) 500,000 units PO Q6HPO [facility] Last Admin: 01/12/17 12:02 Dose: 500,000 units Sodium Chloride (Normal Saline -) 1,000 ml IV Q20M PRN PRN Reason: MAP<65mm Hg OR SBP <90 Last Admin: 01/11/17 02:09 Dose: 1,000 ml Sodium Chloride ([place] Nasal [place] -) 2 spray NS BID [facility] Last Admin: 01/12/17 09:33 Dose: 2 spray Ursodiol (Actigal -) 300 mg PO BID [facility] Last Admin: 01/12/17 09:27 Dose: 300 mg Vancomycin HCl (Vancomycin (Pre-Docked)) 1,000 mg IVPB Q48H [facility] - Objective Vital Signs: Vital Signs Temperature 99.5 F 01/12/17 12:00 Pulse Rate 100 H 0217/17 12:49 Respiratory Rate 18 01/12/17 12:49 Blood Pressure 105/91 01/12/17 12:49 O2 Sat by Pulse Oximetry (%) 98 01/12/17 09:00 Constitutional: Yes: Calm Eyes: Yes: Conjunctiva Clear HENT: Yes: Atraumatic Neck: Yes: Supple Cardiovascular: Yes: S1, S2 Respiratory: Yes: CTA Bilaterally, On Nasal O2 Gastrointestinal: Yes: Soft Genitourinary: Yes: [place] Present Musculoskeletal: Yes: Muscle Weakness Edema: No Neurological: Yes: Oriented Psychiatric: Yes: Oriented Labs: CBC, BMP 01/12/17 05:35 01/12/17 05:35 INR, PTT INR 1.53 (0.82-1.09) H 01/12/17 05:35 Fibrinogen 688.0 mg/dL (238-498) H 01/12/17 05:35 - ....Imaging Ultrasound: Report Reviewed Assessment/Plan Current Medications Generic Name Dose Route Start Last Admin Trade Name Freq PRN Reason Stop Dose Admin Acetaminophen 650 mg 01/11/17 18:21 01/11/17 18:28 Tylenol - PO 650 mg Q6H PRN Administration FEVER OR PAIN Amlodipine Besylate 5 mg 01/12/17 10:00 01/12/17 09:31 Norvasc - PO 5 mg DAILY YOMI Administration Docusate Sodium 100 mg 01/11/17 07:03 01/11/17 10:00 Colace - PO 100 mg BID PRN Administration CONSTIPATION Hydromorphone HCl 1 mg 01/11/17 07:03 01/12/17 09:32 Dilaudid Injection - IVPUSH 1 mg Q4H PRN Administration PAIN Meropenem 1 gm/ Dextrose 100 mls @ 250 mls/hr 01/11/17 22:00 01/12/17 09:27 IVPB 250 mls/hr BID YOMI Administration Protocol Sodium Chloride 1,000 mls @ 100 mls/hr 01/12/17 13:30 Normal Saline - IV 01/12/17 23:29 ASDIR YOMI Insulin Aspart 1 vial 01/11/17 07:00 01/12/17 11:02 Novolog Vial Sliding Scale - SQ Not Given ACHS YOMI Protocol Magnesium Oxide 400 mg 01/12/17 10:00 01/12/17 09:31 Mag-Ox - PO 400 mg DAILY YOMI Administration Non-Formulary Medication 300 mg 01/12/17 10:00 Posaconazole [Noxafil] PO DAILY [facility] Nystatin 500,000 units 01/12/17 12:00 01/12/17 12:02 Nystatin Oral Suspension - PO 500,000 units Q6HPO YOMI Administration Sodium Chloride 1,000 ml 01/11/17 00:57 01/11/17 02:09 Normal Saline - IV 1,000 ml Q20M PRN Administration MAP<65mm Hg OR SBP <90 Sodium Chloride 2 spray 01/11/17 22:00 01/12/17 09:33 [place] Nasal [place] - NS 2 spray BID YOMI Administration Ursodiol 300 mg 01/11/17 22:00 01/12/17 09:27 Actigal - PO 300 mg BID YOMI Administration Vancomycin HCl 1,000 mg 01/13/17 05:00 Vancomycin (Pre-Docked) IVPB Q48H [facility] renal ultrasound shows bilateral renal cyst, negative hydro Impression 1. MILLER 2. 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 DM 5. hyperlipidemia 6. HTN 7. hx DVT 8. hematuria 9. sepsis 10. thrombocytopenia 11. anemia 12. bilateral renal cysts Plan - likely etiology of MILLER is pre-renal disease - FENa is 0.79 percent which is consistent with pre-renal disease - repeat labs in am - unclear why prograf level was not sent yesterday - oncology input appreciated, experimental drug and tacrolimus are going to be held - bactrim is on hold as well - cont hydration - cont abx - urology evaluation for gross hematuria - platelet cound is improving - discussed with ICU team - will follow closely
[2017-01-12] MEDS ORDERED: SODIUM CHLORIDE 1,000 ML IV SCH (13:30)
--- NOTE | 2017-01-12 14:34 | PN ---
Teaching Attending Note Name of Resident: Jennifer Harrington ATTENDING PHYSICIAN STATEMENT I saw and evaluated the patient. I reviewed the resident's note and discussed the case with the resident. I agree with the resident's findings and plan as documented. SUBJECTIVE: Patient is feeling better, symptoms improved, feeling more energetic. OBJECTIVE: Vital Signs Temperature 99.5 F 01/12/17 12:00 Pulse Rate 100 H 01/12/17 12:49 Respiratory Rate 18 01/12/17 12:49 Blood Pressure 105/91 01/12/17 12:49 O2 Sat by Pulse Oximetry (%) 98 01/12/17 09:00 GENERAL: The patient is awake, alert, and fully oriented, in no acute distress. HEAD: mild swelling over right temporal, maxiallary, frontal areas, ttp, no bleeding, no broken skin. EYES: PERRL, extraocular movements intact, sclera anicteric, conjunctiva clear. ENT: Ears normal, oropharynx clear without exudates, moist mucous membranes. NECK: Trachea midline, full range of motion, supple, no JVD LUNGS: Breath sounds equal, clear to auscultation bilaterally, no wheezes, no crackles, no accessory muscle use. HEART: Regular rate and rhythm, S1, S2 without murmur, rub or gallop. ABDOMEN: Soft, nontender, nondistended, normoactive bowel sounds EXTREMITIES: 2+ pulses, warm, well-perfused, no edema. NEUROLOGICAL: Normal speech PSYCH: Normal mood, normal affect. SKIN: Warm, dry, normal turgor, no rashes or lesions noted CBCD WBC 8.6 K/mm3 (4.0-10.0) 01/12/17 05:35 RBC 2.60 M/mm3 (4.00-5.60) L 01/12/17 05:35 Hgb 7.9 GM/dL (11.7-16.9) L 01/12/17 05:35 Hct 22.6 % (35.4-49) L 01/12/17 05:35 MCV 86.9 fl (80-96) 01/12/17 05:35 MCHC 35.1 g/dl (32.0-35.9) 01/12/17 05:35 RDW 14.3 % (11.9-15.9) 01/12/17 05:35 Plt Count 62 K/MM3 (134-434) L 01/12/17 05:35 MPV 9.2 fl (7.5-11.1) 01/12/17 05:35 CMP Sodium 144 mmol/L (136-145) 01/12/17 05:35 Potassium 3.8 mmol/L (3.5-5.1) 01/12/17 05:35 Chloride 108 mmol/L (98-107) H 01/12/17 05:35 Carbon Dioxide 27 mmol/L (21-32) 01/12/17 05:35 Anion Gap 9 (8-16) 01/12/17 05:35 BUN 32 mg/dL (7-18) H 01/12/17 05:35 Creatinine 2.5 mg/dL (0.7-1.3) H 01/12/17 05:35 Creat Clearance w eGFR 26.30 (>60) 01/12/17 05:35 Random Glucose 156 mg/dL (74-106) H 01/12/17 05:35 Calcium 7.6 mg/dL (8.5-10.1) L 01/12/17 05:35 Total Bilirubin 1.1 mg/dL (0.2-1.0) H 01/12/17 05:35 AST 33 U/L (15-37) 01/12/17 05:35 ALT 28 U/L (12-78) 01/12/17 05:35 Alkaline Phosphatase 61 U/L (45-117) 01/12/17 05:35 Total Protein 6.0 g/dl (6.4-8.2) L 01/12/17 05:35 Albumin 2.2 g/dl (3.4-5.0) L 01/12/17 05:35 CARDIAC ENZYMES Creatine Kinase 310 IU/L (39-308) H D 01/12/17 05:35 Troponin I 0.13 ng/ml (0.00-0.05) H 01/12/17 05:35 Current Medications Generic Name Dose Route Start Last Admin Trade Name Freq PRN Reason Stop Dose Admin Acetaminophen 650 mg 01/11/17 18:21 01/11/17 18:28 Tylenol - PO 650 mg Q6H PRN Administration FEVER OR PAIN Amlodipine Besylate 5 mg 01/12/17 10:00 01/12/17 09:31 Norvasc - PO 5 mg DAILY YOMI Administration Docusate Sodium 100 mg 01/11/17 07:03 01/11/17 10:00 Colace - PO 100 mg BID PRN Administration CONSTIPATION Hydromorphone HCl 1 mg 01/11/17 07:03 01/12/17 09:32 Dilaudid Injection - IVPUSH 1 mg Q4H PRN Administration PAIN Meropenem 1 gm/ Dextrose 100 mls @ 250 mls/hr 01/11/17 22:00 01/12/17 09:27 IVPB 250 mls/hr BID YOMI Administration Protocol Sodium Chloride 1,000 mls @ 100 mls/hr 01/12/17 13:30 Normal Saline - IV 01/12/17 23:29 ASDIR [facility] Insulin Aspart 1 vial 01/11/17 07:00 01/12/17 11:02 Novolog Vial Sliding Scale - SQ Not Given ACHS [facility] Protocol Magnesium Oxide 400 mg 01/12/17 10:00 01/12/17 09:31 Mag-Ox - PO 400 mg DAILY [facility] Administration Non-Formulary Medication 300 mg 01/12/17 10:00 Posaconazole [Noxafil] PO DAILY [facility] Nystatin 500,000 units 01/12/17 12:00 01/12/17 12:02 Nystatin Oral Suspension - PO 500,000 units Q6HPO [facility] Administration Sodium Chloride 1,000 ml 01/11/17 00:57 01/11/17 02:09 Normal Saline - IV 1,000 ml Q20M PRN Administration MAP<65mm Hg OR SBP <90 Sodium Chloride 2 spray 01/11/17 22:00 01/12/17 09:33 [place] Nasal [place] - NS 2 spray BID [facility] Administration Ursodiol 300 mg 01/11/17 22:00 01/12/17 09:27 Actigal - PO 300 mg BID [facility] Administration Vancomycin HCl 1,000 mg 01/13/17 05:00 Vancomycin (Pre-Docked) IVPB Q48H [facility] Home Medications Medication Instructions Recorded Amlodipine Besylate [Norvasc -] 5 mg PO DAILY 01/13/16 Magnesium Oxide [Magnesium] 400 mg PO DAILY 01/13/16 Oxycodone HCl/Acetaminophen 1 tab PO Q8H PRN 01/13/16 [Percocet 5/325 -] Posaconazole [Noxafil] 300 mg PO DAILY 01/13/16 Sulfamethoxazole/Trimethoprim 1 tab PO BID 01/13/16 [Bactrim Ds -] Tacrolimus [Prograf] 0.5 mg PO BID 01/13/16 Ursodiol [Actigal] 300 mg PO BID 01/13/16 Valganciclovir HCl 450 mg PO BID 01/13/16 Laboratory Tests 01/11/17 01/11/17 01/11/17 01:00 01:00 07:48 Hgb 7.6 L 5.9 L* D Blast Cells 15 H D INR 1.99 H D PTT (Actin FS) 70.9 H D Thrombin Time Fibrinogen Fibrin Degrad Products Lactic Acid Total Bilirubin LD Total 01/11/17 01/11/17 01/12/17 07:48 11:30 01:50 Hgb 8.0 L D Blast Cells INR 2.00 H PTT (Actin FS) 58.9 H Thrombin Time 15.0 Fibrinogen 504.0 H Fibrin Degrad Products >10 & <40 Lactic Acid Total Bilirubin LD Total 01/12/17 01/12/17 01/12/17 05:35 05:35 05:35 Hgb Blast Cells 7 H D INR 1.53 H PTT (Actin FS) 46.2 H Thrombin Time Fibrinogen Fibrin Degrad Products Lactic Acid Total Bilirubin 1.1 H LD Total 233 01/12/17 01/12/17 05:35 05:35 Hgb Blast Cells INR PTT (Actin FS) Thrombin Time Fibrinogen 688.0 H Fibrin Degrad Products Lactic Acid 1.542 Total Bilirubin LD Total ASSESSMENT AND PLAN: 61 yo M with significant PMHx of AML, NIDDM, HTN, HLD, and DVT, admitted for management of severe sepsis. #Acute Severe sepsis( fever of 104 presented with now 99.5 , tachycardia, elevated wbc) with Acute renal failure improving ; Blood culture,UA,urine culture , ID was consulted. on Vancomycin/Meropenem. On Antifungal prophylaxis- would continue Noxafil. #Acute pancytopenia improving ,due to experimental therapy that was given s/p STem cell transplant , due to his AML/chemotherapy - improved s/p transfusions s /p tansfusion of FFP 2 units, platelets 2 units, 2 units of PRBC, Fibrinogen elevated , Haptoglobulin elevated , Oncology consult discussed with.and discussed with [facility].Doctors who take care of him to hold prograf; to continue Antifungal prophylaxis- would continue Noxafil. # Acute renal failure consulted dr Linn ; prograf level was send out, On IVF improving # Facial Trauma s/p fall #DM ;NISS #HTN ; monitor , on norvasc 5mg with parameters #Palliative consult to discuss with family for possible hospice
--- NOTE | 2017-01-12 15:29 | PN ---
Progress Note, Physician History of Present Illness: patient has developed oral thrush otherwise doing well still had some spikes of fever working with physio - Current Medication List Current Medications: Active Medications Acetaminophen (Tylenol -) 650 mg PO Q6H PRN PRN Reason: FEVER OR PAIN Last Admin: 01/11/17 18:28 Dose: 650 mg Amlodipine Besylate (Norvasc -) 5 mg PO DAILY [facility] Last Admin: 01/12/17 09:31 Dose: 5 mg Docusate Sodium (Colace -) 100 mg PO BID PRN PRN Reason: CONSTIPATION Last Admin: 01/11/17 10:00 Dose: 100 mg Hydromorphone HCl (Dilaudid Injection -) 1 mg IVPUSH Q4H PRN PRN Reason: PAIN Last Admin: 01/12/17 09:32 Dose: 1 mg Meropenem 1 gm/ Dextrose 100 mls @ 250 mls/hr IVPB BID YOMI PRN Reason: Protocol Last Admin: 01/12/17 09:27 Dose: 250 mls/hr Sodium Chloride (Normal Saline -) 1,000 mls @ 100 mls/hr IV ASDIR [facility] Stop: 01/12/17 23:29 Insulin Aspart (Novolog Vial Sliding Scale -) 1 vial SQ ACHS YOMI PRN Reason: Protocol Last Admin: 01/12/17 11:02 Dose: Not Given Magnesium Oxide (Mag-Ox -) 400 mg PO DAILY [facility] Last Admin: 01/12/17 09:31 Dose: 400 mg Non-Formulary Medication (Posaconazole [Noxafil]) 300 mg PO DAILY [facility] Nystatin (Nystatin Oral Suspension -) 500,000 units PO Q6HPO [facility] Last Admin: 01/12/17 12:02 Dose: 500,000 units Sodium Chloride (Normal Saline -) 1,000 ml IV Q20M PRN PRN Reason: MAP<65mm Hg OR SBP <90 Last Admin: 01/11/17 02:09 Dose: 1,000 ml Sodium Chloride ([place] Nasal [place] -) 2 spray NS BID [facility] Last Admin: 01/12/17 09:33 Dose: 2 spray Ursodiol (Actigal -) 300 mg PO BID [facility] Last Admin: 01/12/17 09:27 Dose: 300 mg Vancomycin HCl (Vancomycin (Pre-Docked)) 1,000 mg IVPB Q48H [facility] - Objective Vital Signs: Vital Signs Temperature 99.5 F 01/12/17 12:00 Pulse Rate 100 H 01/12/17 12:49 Respiratory Rate 18 01/12/17 12:49 Blood Pressure 105/91 01/12/17 12:49 O2 Sat by Pulse Oximetry (%) 98 01/12/17 09:00 Constitutional: Yes: No Distress, Calm Cardiovascular: Yes: Regular Rate and Rhythm Respiratory: Yes: Regular, Poor Air Entry Gastrointestinal: Yes: Normal Bowel Sounds, Soft Musculoskeletal: Yes: WNL Extremities: Yes: WNL Neurological: Yes: Alert, Oriented Psychiatric: Yes: Alert, Oriented Labs: CBC, BMP 01/12/17 05:35 01/12/17 05:35 INR, PTT INR 1.53 (0.82-1.09) H 01/12/17 05:35 Fibrinogen 688.0 mg/dL (238-498) H 01/12/17 05:35 Assessment/Plan 1. MILLER 2. 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 DM 5. hyperlipidemia 6. HTN 7. hx DVT 8. hematuria 9. sepsis 10. thrombocytopenia 11. anemia 12 pneumonia renal failure leukocytosis oral thrush leukocytosis has resolved plan continue abx repeat cx are negative incentive pallavi monitor fevers continue supportive measures once patient afebrile will start deescalating ab cc time 40 min
[2017-01-12] MEDS ORDERED: POSACONAZOLE PO ONE ×2 (15:30→15:45)
--- NOTE | 2017-01-12 17:12 | PN ---
Physical Exam: SUBJECTIVE: Patient seen and examined. says denies chest pain, n/v, palpitations, SOB. OBJECTIVE: Vital Signs Period Temp Pulse Resp BP Sys/Martinez Pulse Ox Last 24 Hr 98.8 F-102.8 F 88-109 18-24 95-124/56-91 98-98 GENERAL: The patient is awake, alert, and fully oriented, in no acute distress. HEAD: mild swelling over right temporal, maxiallary, frontal areas, ttp, no bleeding, no broken skin. EYES: PERRL, extraocular movements intact, sclera anicteric, conjunctiva clear. No ptosis. ENT: Ears normal, nares patent, oropharynx clear without exudates, moist mucous membranes. no thrush, small swelling and tenderness under left upper lip interiorly. NECK: Trachea midline, full range of motion, supple. LUNGS: Breath sounds equal, clear to auscultation bilaterally, no wheezes, no crackles, no accessory muscle use. HEART: Regular rate and rhythm, S1, S2 without murmur, rub or gallop. ABDOMEN: Soft, nontender, nondistended, normoactive bowel sounds EXTREMITIES: 2+ pulses, warm, well-perfused, no edema. NEUROLOGICAL: Normal speech PSYCH: Normal mood, normal affect. SKIN: Warm, dry, normal turgor, no rashes or lesions noted condom cath in place clear yellow urine. Laboratory Results - last 24 hr 01/11/17 01/11/17 01/11/17 11:30 17:00 17:00 WBC RBC Hgb Hct MCV MCHC RDW Plt Count MPV Neutrophils % Lymphocytes % Monocytes % Band Neutrophils Blast Cells Platelet Estimate Haptoglobin 329 H INR PTT (Actin FS) Fibrinogen Sodium Potassium Chloride Carbon Dioxide Anion Gap BUN Creatinine Creat Clearance w eGFR Random Glucose Lactic Acid Calcium Total Bilirubin AST ALT Alkaline Phosphatase LD Total Creatine Kinase Creatine Kinase Index CK-MB (CK-2) CK-MB (CK-2) Rel Index Troponin I Total Protein Albumin Urine Color Yellow Urine Appearance Slcloudy Urine pH 5.0 Ur Specific [place] 1.016 Urine Protein 2+ H Urine Glucose (UA) Negative Urine Ketones Negative Urine Blood 3+ H Urine Nitrite Negative Urine Bilirubin Negative Urine Urobilinogen 2.0 e.u/dl Ur Leukocyte Esterase Negative Urine RBC 1000 Urine WBC 220 Ur Epithelial Cells Rare Ur Random Sodium 43 Ur Random Potassium 33.9 Ur Random Chloride 43 Urine Creatinine Direct Antiglob Test Crossmatch 01/11/17 01/12/17 01/12/17 17:00 01:50 05:35 WBC 9.9 D 8.6 RBC 2.61 L D 2.60 L Hgb 8.0 L D 7.9 L Hct 23.2 L D 22.6 L MCV 88.7 86.9 MCHC 34.4 35.1 RDW 14.2 14.3 Plt Count 75 L D 62 L MPV 9.1 D 9.2 Neutrophils % 11.0 L D Lymphocytes % 56.0 H Monocytes % 25.0 H Band Neutrophils 1.0 D Blast Cells 7 H D Platelet Estimate Decreased Haptoglobin INR PTT (Actin FS) Fibrinogen Sodium Potassium Chloride Carbon Dioxide Anion Gap BUN Creatinine Creat Clearance w eGFR Random Glucose Lactic Acid Calcium Total Bilirubin AST ALT Alkaline Phosphatase LD Total Creatine Kinase Creatine Kinase Index CK-MB (CK-2) CK-MB (CK-2) Rel Index Troponin I Total Protein Albumin Urine Color Urine Appearance Urine pH Ur Specific [place] Urine Protein Urine Glucose (UA) Urine Ketones Urine Blood Urine Nitrite Urine Bilirubin Urine Urobilinogen Ur Leukocyte Esterase Urine RBC Urine WBC Ur Epithelial Cells Ur Random Sodium Ur Random Potassium Ur Random Chloride Urine Creatinine 115.0 Direct Antiglob Test Crossmatch 01/12/17 01/12/17 01/12/17 05:35 05:35 05:35 WBC RBC Hgb Hct MCV MCHC RDW Plt Count MPV Neutrophils % Lymphocytes % Monocytes % Band Neutrophils Blast Cells Platelet Estimate Haptoglobin INR 1.53 H PTT (Actin FS) 46.2 H Fibrinogen Sodium 144 Potassium 3.8 Chloride 108 H Carbon Dioxide 27 Anion Gap 9 BUN 32 H Creatinine 2.5 H Creat Clearance w eGFR 26.30 Random Glucose 156 H Lactic Acid Calcium 7.6 L Total Bilirubin 1.1 H AST 33 ALT 28 Alkaline Phosphatase 61 LD Total 233 Creatine Kinase Creatine Kinase Index CK-MB (CK-2) CK-MB (CK-2) Rel Index Troponin I Total Protein 6.0 L Albumin 2.2 L Urine Color Urine Appearance Urine pH Ur Specific [place] Urine Protein Urine Glucose (UA) Urine Ketones Urine Blood Urine Nitrite Urine Bilirubin Urine Urobilinogen Ur Leukocyte Esterase Urine RBC Urine WBC Ur Epithelial Cells Ur Random Sodium Ur Random Potassium Ur Random Chloride Urine Creatinine Direct Antiglob Test Negative Crossmatch See Detail 01/12/17 01/12/17 01/12/17 05:35 05:35 05:35 WBC RBC Hgb Hct MCV MCHC RDW Plt Count MPV Neutrophils % Lymphocytes % Monocytes % Band Neutrophils Blast Cells Platelet Estimate Haptoglobin INR PTT (Actin FS) Fibrinogen 688.0 H Sodium Potassium Chloride Carbon Dioxide Anion Gap BUN Creatinine Creat Clearance w eGFR Random Glucose Lactic Acid 1.542 Calcium Total Bilirubin AST ALT Alkaline Phosphatase LD Total Creatine Kinase 310 H D Creatine Kinase Index 0.3 CK-MB (CK-2) 1.037 CK-MB (CK-2) Rel Index Troponin I 0.13 H Total Protein Albumin Urine Color Urine Appearance Urine pH Ur Specific [place] Urine Protein Urine Glucose (UA) Urine Ketones Urine Blood Urine Nitrite Urine Bilirubin Urine Urobilinogen Ur Leukocyte Esterase Urine RBC Urine WBC Ur Epithelial Cells Ur Random Sodium Ur Random Potassium Ur Random Chloride Urine Creatinine Direct [place]iglob Test Crossmatch 01/12/17 05:35 WBC RBC Hgb Hct MCV MCHC RDW Plt Count MPV Neutrophils % Lymphocytes % Monocytes % Band Neutrophils Blast Cells Platelet Estimate Haptoglobin INR PTT (Actin FS) Fibrinogen Sodium Potassium Chloride Carbon Dioxide Anion Gap BUN Creatinine Creat Clearance w eGFR Random Glucose Lactic Acid Calcium Total Bilirubin AST ALT Alkaline Phosphatase LD Total Creatine Kinase Creatine Kinase Index CK-MB (CK-2) CK-MB (CK-2) Rel Index Cancelled Troponin I Total Protein Albumin Urine Color Urine Appearance Urine pH Ur Specific [place] Urine Protein Urine Glucose (UA) Urine Ketones Urine Blood Urine Nitrite Urine Bilirubin Urine Urobilinogen Ur Leukocyte Esterase Urine RBC Urine WBC Ur Epithelial Cells Ur Random Sodium Ur Random Potassium Ur Random Chloride Urine Creatinine Direct Antiglob Test Crossmatch Active Medications Generic Name Dose Route Start Last Admin Trade Name Freq PRN Reason Stop Dose Admin Acetaminophen 650 mg 01/11/17 18:21 01/11/17 18:28 Tylenol - PO 650 mg Q6H PRN Administration FEVER OR PAIN Amlodipine Besylate 5 mg 01/12/17 10:00 01/12/17 09:31 Norvasc - PO 5 mg DAILY YOMI Administration Docusate Sodium 100 mg 01/11/17 07:03 01/11/17 10:00 Colace - PO 100 mg BID PRN Administration CONSTIPATION Hydromorphone HCl 1 mg 01/11/17 07:03 01/12/17 09:32 Dilaudid Injection - IVPUSH 1 mg Q4H PRN Administration PAIN Meropenem 1 gm/ Dextrose 100 mls @ 250 mls/hr 01/11/17 22:00 01/12/17 09:27 IVPB 250 mls/hr BID YOMI Administration Protocol Sodium Chloride 1,000 mls @ 100 mls/hr 01/12/17 13:30 01/12/17 15:27 Normal Saline - IV 01/12/17 23:29 100 mls/hr ASDIR YOMI Administration Insulin Aspart 1 vial 01/11/17 07:00 01/12/17 16:53 Novolog Vial Sliding Scale - SQ Not Given ACHS YOMI Protocol Magnesium Oxide 400 mg 01/12/17 10:00 01/12/17 09:31 Mag-Ox - PO 400 mg DAILY YOMI Administration Non-Formulary Medication 300 mg 01/12/17 10:00 Posaconazole [Noxafil] PO DAILY YOMI Nystatin 500,000 units 01/12/17 12:00 01/12/17 12:02 Nystatin Oral Suspension - PO 500,000 units Q6HPO YOMI Administration Sodium Chloride 1,000 ml 01/11/17 00:57 01/11/17 02:09 Normal Saline - IV 1,000 ml Q20M PRN Administration MAP<65mm Hg OR SBP <90 Sodium Chloride 2 spray 01/11/17 22:00 01/12/17 09:33 [place] Nasal [place] - NS 2 spray BID YOMI Administration Ursodiol 300 mg 01/11/17 22:00 01/12/17 09:27 Actigal - PO 300 mg BID YOMI Administration Vancomycin HCl 1,000 mg 01/13/17 05:00 Vancomycin (Pre-Docked) IVPB Q48H [facility] ASSESSMENT/PLAN: 61 yo man with AML(receiving trial chemotherapy, hospice) NIDDM, HTN, HLD, hx of DVT, s/p fall and hematuria admitted for managment of severe sepsis. - Followed at [facility] Dr. Gibson(cell [phone], office [phone]) and Dr. Lomeli - has been on Posaconazole 300 mg PO DAILY Bactrim Ds - 1 tab PO BID , Valganciclovir HCl 450 mg PO BID - bactrim and valganciclover may cause kidney injury, will hold for now - Jennifer improved, jade sepulvedanal, u/s with medical renal disease #Severe sepsis( JENNIFER, fever, tachycardia, elevated wbc) - IVF - bld and urine cx pending - renal ultrasound, urine studies to asses JENNIFER - [place] cath to monitor I&O - started on meropenem and vanc, Id consulted Dr. Shea - tacrolimus level pending, prograf will be held as per dr. gaytan who spoke with drug trail physicians #Facial Trauma - ENT consult for non-displaced nasal bone fracture; Recommend: nasal saline spray, ophthalmology consultation, no surgical intervention recommended - optho consult Dr. Egan #Diarrhea - stool studies #pancytopenia( 5.9/17.4, plts of 3), likley secondary to his AML/chemotherapy - improved s/p transfusions - 3 units of prbc's, 2 units ffp, 2 units monoplatelets, vitamin K IVpb - to recibed more ffp and prbc's - r/o DIC, fibronigen, fibrin degradation products - Dr. Gaytan consulted #Palliative to discuss GOC with family, as patient is hospice/palliative #DM - NISS #HTN - norvasc 5mg with parameters #DVT: scd's #Diet; diabetic Visit type - Emergency Visit Emergency Visit: No - New Patient This patient is new to me today: No - Critical Care Critical Care patient: Yes Total Critical Care Time (in minutes): 36 Critical Care Statement: The care of this patient involved high complexity decision making to prevent further life threatening deterioration of the patient 's condition and/or to evalute & treat vital organ system(s) failure or risk of failure.
[2017-01-12] MEDS ORDERED: PT OWN MED DRAWER 7, Y5N ONE (21:14)
[2017-01-13] MEDS ORDERED: PT OWN MED DRAWER 7, Y5N ONE ×2 (01:44→21:17)
[2017-01-13] MEDS: NYSTATIN 500,000 UNITS/5 ML SUSPENSION PO SCH ×5 (04:21→23:30)
[2017-01-13] MEDS ORDERED: VANCOMYCIN 1 GRAM (PRE-DOCKED) 1,000 MG/250 ML BAG IVPB SCH (05:00)
[2017-01-13] MEDS: ACETAMINOPHEN 325 MG TABLET (FP) PO PRN ×2 (05:54→21:34)
[2017-01-13] MEDS: INSULIN SLIDING SCALE (NOVOLOG) 1 VIAL SQ SCH ×4 (06:05→21:46)
[2017-01-13 06:07] LABS: MCHC 34.4 g/dl (32.0-35.9); MEAN CELL VOLUME 87.1 fl (80-96); PLATELET COUNT 62 K/MM3 (134-434); RDW 14.8 % (11.9-15.9); WHITE BLOOD COUNT 7.6 K/mm3 (4.0-10.0)
[2017-01-13 06:33] LABS: CALCIUM 7.9 mg/dL (8.5-10.1); MAGNESIUM 1.8 mg/dL (1.8-2.4); PHOSPHOROUS 2.2 mg/dL (2.5-4.9)
[2017-01-13 06:35] LABS: BILIRUBIN,TOTAL 0.7 mg/dL (0.2-1.0); CREATININE 2.1 mg/dL (0.7-1.3); TOT PROT 5.9 g/dl (6.4-8.2)
--- NOTE | 2017-01-13 09:22 | PN ---
Progress Note, Physician Chief Complaint: Renal F/U Pt in no distress lyhing flate in bed IVF was just stopped No C/O N/V or diarrhea Azotemia is better today Results of yesterday's CXR noted Renal and U Bladder IUS with B/L renal cysts and increased echogenicity and no increased PVR - Current Medication List Current Medications: Active Medications Acetaminophen (Tylenol -) 650 mg PO Q6H PRN PRN Reason: FEVER OR PAIN Last Admin: 01/13/17 05:54 Dose: 650 mg Amlodipine Besylate (Norvasc -) 5 mg PO DAILY [facility] Last Admin: 01/12/17 09:31 Dose: 5 mg Docusate Sodium (Colace -) 100 mg PO BID PRN PRN Reason: CONSTIPATION Last Admin: 01/11/17 10:00 Dose: 100 mg Hydromorphone HCl (Dilaudid Injection -) 1 mg IVPUSH Q4H PRN PRN Reason: PAIN Last Admin: 01/12/17 09:32 Dose: 1 mg Meropenem 1 gm/ Dextrose 100 mls @ 250 mls/hr IVPB BID [facility] PRN Reason: Protocol Last Admin: 01/12/17 21:18 Dose: 250 mls/hr Insulin Aspart (Novolog Vial Sliding Scale -) 1 vial SQ ACHS YOMI PRN Reason: Protocol Last Admin: 01/13/17 06:05 Dose: Not Given Magnesium Oxide (Mag-Ox -) 400 mg PO DAILY [facility] Last Admin: 01/12/17 09:31 Dose: 400 mg Non-Formulary Medication (Posaconazole [Noxafil]) 300 mg PO DAILY [facility] Nystatin (Nystatin Oral Suspension -) 500,000 units PO Q6HPO [facility] Last Admin: 01/13/17 05:54 Dose: 500,000 units Sodium Chloride (Normal Saline -) 1,000 ml IV Q20M PRN PRN Reason: MAP<65mm Hg OR SBP <90 Last Admin: 01/11/17 02:09 Dose: 1,000 ml Sodium Chloride ([place] Nasal [place] -) 2 spray NS BID [facility] Last Admin: 01/12/17 21:19 Dose: Not Given Ursodiol (Actigal -) 300 mg PO BID [facility] Last Admin: 01/12/17 21:18 Dose: 300 mg Vancomycin HCl (Vancomycin (Pre-Docked)) 1,000 mg IVPB Q48H [facility] Last Admin: 01/13/17 05:54 Dose: 1,000 mg - Objective Vital Signs: Vital Signs Temperature 100.3 F H 01/13/17 06:00 Pulse Rate 97 H 01/13/17 06:00 Respiratory Rate 16 01/13/17 06:00 Blood Pressure 97/83 01/13/17 06:00 O2 Sat by Pulse Oximetry (%) 98 01/12/17 19:45 Constitutional: Yes: No Distress Cardiovascular: Yes: S1, S2 Respiratory: Yes: CTA Bilaterally Gastrointestinal: Yes: Soft. No: Tenderness, Rebound Genitourinary: No: Bladder Distention Edema: No Labs: CBC, BMP 01/13/17 05:00 01/13/17 05:00 INR, PTT INR 1.53 (0.82-1.09) H 01/12/17 05:35 Fibrinogen 688.0 mg/dL (238-498) H 01/12/17 05:35 Assessment/Plan Impression 1. MILLER in pt with CKD as evidenced by the abnormal renal sonogram and baseline Cr of 1.3 ~ 6 months ago. Acute component is from 2. AML S/P Stem Cell tx 3. Anemia with thrombocytosis which required transfusional support 4. DM 5. hyperlipidemia 6. HTN 7. hx DVT 8. S/P gross hematuria 9. Sepsis Plan NS ordered and to be resumed at 75 cc/hr Holding Bactrim for now Urology evaluation for gross hematuria Rpt labs in am Dr Lujan
[2017-01-13] MEDS: MEROPENEM 1 GM in DEXTROSE 5%-WATER - 100 ML IVPB SCH ×2 (09:57→21:21)
[2017-01-13] MEDS: MAGNESIUM OXIDE 400 MG TABLET (FP) PO SCH (09:58)
[2017-01-13] MEDS: URSODIOL 300 MG CAPSULE PO SCH ×2 (09:58→21:22)
[2017-01-13] MEDS: SODIUM CHLORIDE 1,000 ML IV SCH (09:58)
[2017-01-13] MEDS: SODIUM CHLORIDE NASAL SPRAY 44 ML BOTTLE NS SCH ×2 (09:59→21:34)
[2017-01-13] MEDS: amLODIPine BESYLATE 5 MG TABLET (FP) PO SCH ×2 (09:59→11:00)
--- NOTE | 2017-01-13 10:56 | PN ---
Progress Note (short form) - Note Progress Note: Patient seen and examined in the ICU. Awake and alert. (+) Low grade fever. No discomfort around the orbit. Cough is better today. Intake & Output 01/10/17 01/11/17 01/12/17 01/13/17 23:59 23:59 23:59 23:59 Intake Total 3850 1540 1300 Output Total 900 2880 700 Balance 2950 -1340 600 Weight 150 lb 148 lb 150 lb 8 oz Last Vital Signs Temp Pulse Resp BP Pulse Ox 100.3 F H 97 H 16 97/83 98 01/13/17 06:00 01/13/17 06:00 01/13/17 06:00 01/13/17 06:00 01/12/17 19:45 Active Medications Acetaminophen (Tylenol -) 650 mg PO Q6H PRN PRN Reason: FEVER OR PAIN Last Admin: 01/13/17 05:54 Dose: 650 mg Amlodipine Besylate (Norvasc -) 5 mg PO DAILY [facility] Last Admin: 01/13/17 09:59 Dose: 5 mg Docusate Sodium (Colace -) 100 mg PO BID PRN PRN Reason: CONSTIPATION Last Admin: 01/11/17 10:00 Dose: 100 mg Hydromorphone HCl (Dilaudid Injection -) 1 mg IVPUSH Q4H PRN PRN Reason: PAIN Last Admin: 01/12/17 09:32 Dose: 1 mg Meropenem 1 gm/ Dextrose 100 mls @ 250 mls/hr IVPB BID YOMI PRN Reason: Protocol Last Admin: 01/13/17 09:57 Dose: 250 mls/hr Sodium Chloride (Normal Saline -) 1,000 mls @ 75 mls/hr IV ASDIR [facility] Last Admin: 01/13/17 09:58 Dose: 75 mls/hr Insulin Aspart (Novolog Vial Sliding Scale -) 1 vial SQ ACHS YOMI PRN Reason: Protocol Last Admin: 01/13/17 06:05 Dose: Not Given Magnesium Oxide (Mag-Ox -) 400 mg PO DAILY [facility] Last Admin: 01/13/17 09:58 Dose: 400 mg Non-Formulary Medication (Posaconazole [Noxafil]) 300 mg PO DAILY [facility] Nystatin (Nystatin Oral Suspension -) 500,000 units PO Q6HPO [facility] Last Admin: 01/13/17 05:54 Dose: 500,000 units Sodium Chloride (Normal Saline -) 1,000 ml IV Q20M PRN PRN Reason: MAP<65mm Hg OR SBP <90 Last Admin: 01/11/17 02:09 Dose: 1,000 ml Sodium Chloride ([place] Nasal [place] -) 2 spray NS BID [facility] Last Admin: 01/13/17 09:59 Dose: 2 spray Ursodiol (Actigal -) 300 mg PO BID [facility] Last Admin: 01/13/17 09:58 Dose: 300 mg Vancomycin HCl (Vancomycin (Pre-Docked)) 1,000 mg IVPB Q48H [facility] Last Admin: 01/13/17 05:54 Dose: 1,000 mg Constitutional: Yes: Awake and alert. NAD Eyes: Yes: Conjunctiva Clear, EOM Intact HENT: Yes: Atraumatic, Normocephalic Neck: Yes: Supple, Trachea Midline Cardiovascular: Yes: Tachycardia Respiratory: Yes: Basilar rhonchi Gastrointestinal: Yes: Normal Bowel Sounds, Soft. No: Tenderness Edema: No Neurological: Yes: Alert, Oriented Labs: Laboratory Results - last 24 hr 01/11/17 01/11/17 01/12/17 11:30 18:00 21:18 WBC RBC Hgb Hct MCV MCHC RDW Plt Count MPV Neutrophils % Lymphocytes % Monocytes % Eosinophils % Blast Cells Thrombin Time 15.0 Sodium Potassium Chloride Carbon Dioxide Anion Gap BUN Creatinine Creat Clearance w eGFR POC Glucometer 137.29495 121.50915 Random Glucose Calcium Phosphorus Magnesium Total Bilirubin AST ALT Alkaline Phosphatase Total Protein Albumin Vancomycin Trough 01/13/17 01/13/17 01/13/17 05:00 05:00 08:15 WBC 7.6 RBC 2.99 L Hgb 9.0 L D Hct 26.0 L D MCV 87.1 MCHC 34.4 RDW 14.8 Plt Count 62 L MPV 9.0 Neutrophils % 10.0 L Lymphocytes % 52.0 H Monocytes % 17.0 H Eosinophils % 2.0 D Blast Cells 19 H D Thrombin Time Sodium 144 Potassium 3.5 Chloride 110 H Carbon Dioxide 27 Anion Gap 7 L BUN 26 H Creatinine 2.1 H Creat Clearance w eGFR 32.16 POC Glucometer Random Glucose 128 H Calcium 7.9 L Phosphorus 2.2 L Magnesium 1.8 Total Bilirubin 0.7 D AST 63 H D ALT 46 D Alkaline Phosphatase 73 Total Protein 5.9 L Albumin 2.0 L Vancomycin Trough 20.041 H* Assessment/Plan LLL Pneumonia Severe Sepsis Acute on Chronic Renal Failure AML Severe Anemia Severe Thrombocytopenia h/o DVT - ABX per ID - Transfusional support / normal transfusion thresholds - IVF were increase due to marginal AM BP - monitor urine output, creatinine - O2 to keep SpO2 >90% - DVT/GI prophylaxis - Pain control - Incentive Spirometry - D/C Norvasc - 4W/4S Dr Walker CCTime 35"
--- NOTE | 2017-01-13 15:05 | PN ---
Progress Note, Physician History of Present Illness: stable awake and alert low grade fever wbc normal - Current Medication List Current Medications: Active Medications Acetaminophen (Tylenol -) 650 mg PO Q6H PRN PRN Reason: FEVER OR PAIN Last Admin: 01/13/17 05:54 Dose: 650 mg Docusate Sodium (Colace -) 100 mg PO BID PRN PRN Reason: CONSTIPATION Last Admin: 01/11/17 10:00 Dose: 100 mg Hydromorphone HCl (Dilaudid Injection -) 1 mg IVPUSH Q4H PRN PRN Reason: PAIN Last Admin: 01/12/17 09:32 Dose: 1 mg Meropenem 1 gm/ Dextrose 100 mls @ 250 mls/hr IVPB BID YOMI PRN Reason: Protocol Last Admin: 01/13/17 09:57 Dose: 250 mls/hr Sodium Chloride (Normal Saline -) 1,000 mls @ 75 mls/hr IV ASDIR [facility] Last Admin: 01/13/17 09:58 Dose: 75 mls/hr Insulin Aspart (Novolog Vial Sliding Scale -) 1 vial SQ ACHS YOMI PRN Reason: Protocol Last Admin: 01/13/17 12:00 Dose: Not Given Magnesium Oxide (Mag-Ox -) 400 mg PO DAILY [facility] Last Admin: 01/13/17 09:58 Dose: 400 mg Non-Formulary Medication (Posaconazole [Noxafil]) 300 mg PO DAILY [facility] Nystatin (Nystatin Oral Suspension -) 500,000 units PO Q6HPO [facility] Last Admin: 01/13/17 05:54 Dose: 500,000 units Sodium Chloride (Normal Saline -) 1,000 ml IV Q20M PRN PRN Reason: MAP<65mm Hg OR SBP <90 Last Admin: 01/11/17 02:09 Dose: 1,000 ml Sodium Chloride ([place] Nasal [place] -) 2 spray NS BID [facility] Last Admin: 01/13/17 09:59 Dose: 2 spray Ursodiol (Actigal -) 300 mg PO BID [facility] Last Admin: 01/13/17 09:58 Dose: 300 mg Vancomycin HCl (Vancomycin (Pre-Docked)) 1,000 mg IVPB Q48H [facility] Last Admin: 01/13/17 05:54 Dose: 1,000 mg - Objective Vital Signs: Vital Signs Temperature 100.3 F H 01/13/17 06:00 Pulse Rate 97 H 02/18/17 06:00 Respiratory Rate 16 01/13/17 06:00 Blood Pressure 97/83 01/13/17 06:00 O2 Sat by Pulse Oximetry (%) 98 01/12/17 19:45 Constitutional: Yes: No Distress, Calm Respiratory: Yes: Regular, CTA Bilaterally Gastrointestinal: Yes: Normal Bowel Sounds, Soft Musculoskeletal: Yes: WNL Extremities: Yes: WNL Neurological: Yes: Alert, Oriented Psychiatric: Yes: Alert Labs: CBC, BMP 01/13/17 05:00 01/13/17 05:00 INR, PTT INR 1.53 (0.82-1.09) H 01/12/17 05:35 Fibrinogen 688.0 mg/dL (238-498) H 01/12/17 05:35 Assessment/Plan 1. MILLER 2. 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 DM 5. hyperlipidemia 6. HTN 7. hx DVT 8. hematuria 9. sepsis 10. thrombocytopenia 11. anemia 12 pneumonia renal failure leukocytosis oral thrush leukocytosis has resolved plan continue abx repeat cx are negative incentive pallavi monitor fevers continue supportive measures once patient afebrile will start deescalating ab cc time 40 min
--- NOTE | 2017-01-13 16:07 | PN ---
Progress Note (short form) - Note Progress Note: Oncology follow-up Note S : Patient awake, alert and talkative when visited today. He says he continues to have diplopia from his left eye but did well when I did a visual field as well as distance vision test at bedside. Last Vital Signs Temp Pulse Resp BP Pulse Ox 100.3 F H 97 H 16 97/83 98 01/13/17 06:00 01/13/17 06:00 01/13/17 06:00 01/13/17 06:00 01/12/17 19:45 Physical Exam AOx3, PERRLA, EOMI, No nystagmus, preserved visual kaiser and distance vision intact Neck soft, no lnd Chest : clear on the right, decreased breath sounds on the left S12 WNL, No m/g/r Soft abdomen No c/c/e Nonfocal neuro exam CBC, [facility] 01/13/17 05:00 01/13/17 05:00 CBC, [facility] 01/13/17 05:00 01/13/17 05:00 Current Medications Generic Name Dose Route Start Last Admin Trade Name Damonq PRN Reason Stop Dose Admin Acetaminophen 650 mg 01/11/17 18:21 01/13/17 05:54 Tylenol - PO 650 mg Q6H PRN Administration FEVER OR PAIN Docusate Sodium 100 mg 01/11/17 07:03 01/11/17 10:00 Colace - PO 100 mg BID PRN Administration CONSTIPATION Hydromorphone HCl 1 mg 01/11/17 07:03 01/12/17 09:32 Dilaudid Injection - IVPUSH 1 mg Q4H PRN Administration PAIN Meropenem 1 gm/ Dextrose 100 mls @ 250 mls/hr 01/11/17 22:00 01/13/17 09:57 IVPB 250 mls/hr BID YOMI Administration Protocol Sodium Chloride 1,000 mls @ 75 mls/hr 01/13/17 09:45 01/13/17 09:58 Normal Saline - IV 75 mls/hr ASDIR YOMI Administration Insulin Aspart 1 vial 01/11/17 07:00 01/13/17 12:00 Novolog Vial Sliding Scale - SQ Not Given ACHS YOMI Protocol Magnesium Oxide 400 mg 01/12/17 10:00 01/13/17 09:58 Mag-Ox - PO 400 mg DAILY YOMI Administration Non-Formulary Medication 300 mg 01/12/17 10:00 Posaconazole [Noxafil] PO DAILY YOMI Nystatin 500,000 units 01/12/17 12:00 01/13/17 14:00 Nystatin Oral Suspension - PO 500,000 units Q6HPO YOMI Administration Sodium Chloride 1,000 ml 01/11/17 00:57 01/11/17 02:09 Normal Saline - IV 1,000 ml Q20M PRN Administration MAP<65mm Hg OR SBP <90 Sodium Chloride 2 spray 01/11/17 22:00 01/13/17 09:59 [place] Nasal [place] - NS 2 spray BID YOMI Administration Ursodiol 300 mg 01/11/17 22:00 01/13/17 09:58 Actigal - PO 300 mg BID YOMI Administration Vancomycin HCl 1,000 mg 01/13/17 05:00 01/13/17 05:54 Vancomycin (Pre-Docked) IVPB 1,000 mg Q48H YOMI Administration A/P : Mr Castellanos is a 61 y/o male with Hx of MDS treated with hypomethylating therapy, multiple clinical trials, then transformed to AML received induction, consolidation chemotherapy, had a 08/05 [facility] AlloStem cell transplant in 11/2015 very poorly compliant with outpatient medications including antibiotics and immunosuppresives who was recently noted to have relapsed disease on bone marrow biopsy and started on [employer] LSD1 inhibitor trial. He was admitted on 01/11 after he suffered a fall on the pavement, hit his head and had been having hematuria at home. Platelet count on arrival noted to be 3, additionally concern also for sepsis with new pulmonary consolidation, diarrhea etc. 1. Pancytopenia - is now improved, continue with supportive transfusions with platelet goal of 20k and Hgb goal of 8 2. New infections, sepsis- on broad spectrum antibiotic coverage with meropenem and vancomycin, new left lower lobe consolidation with contiguous 2 cms mass, unclear what this mass is? Would recommend follow-up CT scans in 2 weeks- if there is no resolution of mass and /or consolidation, will need bronch + biopsy of this lesion. DD includes- infectious , granuloma, chloroma from AML or new lung primary -Blood cultures negative so far, stool cultures awaited 3.MILLER now improving, renally dose all medications and avoid nephrotoxins 4.coagulopathy- would treat with cryoppt or FFP only in the setting of bleeding again 5.AML- Hold investigational treatment and tacrolimus (pt non-compliant with tacrolimus as outpatient) 6.diplopia - patient claims to have left eye diplopia but visual testing was normal, can consider an MRI next week if diplopia does not resolve
--- NOTE | 2017-01-13 18:44 | PN ---
Physical Exam: SUBJECTIVE: Patient seen and examined Comfortable with no acute distress, no shortness of breath, feels better, In ICU OBJECTIVE: Vital Signs Temperature 99 F 01/13/17 14:00 Pulse Rate 91 H 01/13/17 16:00 Respiratory Rate 18 01/13/17 16:00 Blood Pressure 110/80 01/13/17 16:00 O2 Sat by Pulse Oximetry (%) 98 01/13/17 09:00 GENERAL: The patient is awake, alert, and fully oriented, in no acute distress. HEAD: Normal with no signs of trauma. EYES: PERRL, extraocular movements intact, sclera anicteric, conjunctiva clear. ENT: Ears normal, oropharynx clear without exudates, moist mucous membranes. NECK: Trachea midline, full range of motion, supple. LUNGS: Breath sounds equal, clear to auscultation bilaterally, no wheezes, no crackles, no accessory muscle use. HEART: Regular rate and rhythm, S1, S2 without murmur, rub or gallop. ABDOMEN: Soft, nontender, ND, normoactive bowel sounds, no guarding, no rebound , no masses appreciated. EXTREMITIES: 2+ pulses, warm, well-perfused, no edema. NEUROLOGICAL: Cranial nerves II through XII grossly intact. Normal speech. PSYCH: Normal mood, normal affect. SKIN: Warm, dry, normal turgor, no rashes or lesions noted Laboratory Results - last 24 hr 01/11/17 01/11/17 01/12/17 11:30 18:00 21:18 WBC RBC Hgb Hct MCV MCHC RDW Plt Count MPV Neutrophils % Lymphocytes % Monocytes % Eosinophils % Blast Cells Thrombin Time 15.0 Sodium Potassium Chloride Carbon Dioxide Anion Gap BUN Creatinine Creat Clearance w eGFR POC Glucometer 137.35099 121.83986 Random Glucose Calcium Phosphorus Magnesium Total Bilirubin AST ALT Alkaline Phosphatase Total Protein Albumin Vancomycin Trough 01/13/17 01/13/17 01/13/17 05:00 05:00 08:15 WBC 7.6 RBC 2.99 L Hgb 9.0 L D Hct 26.0 L D MCV 87.1 MCHC 34.4 RDW 14.8 Plt Count 62 L MPV 9.0 Neutrophils % 10.0 L Lymphocytes % 52.0 H Monocytes % 17.0 H Eosinophils % 2.0 D Blast Cells 19 H D Thrombin Time Sodium 144 Potassium 3.5 Chloride 110 H Carbon Dioxide 27 Anion Gap 7 L BUN 26 H Creatinine 2.1 H Creat Clearance w eGFR 32.16 POC Glucometer Random Glucose 128 H Calcium 7.9 L Phosphorus 2.2 L Magnesium 1.8 Total Bilirubin 0.7 D AST 63 H D ALT 46 D Alkaline Phosphatase 73 Total Protein 5.9 L Albumin 2.0 L Vancomycin Trough 20.041 H* 01/13/17 12:13 WBC RBC Hgb Hct MCV MCHC RDW Plt Count MPV Neutrophils % Lymphocytes % Monocytes % Eosinophils % Blast Cells Thrombin Time Sodium Potassium Chloride Carbon Dioxide Anion Gap BUN Creatinine Creat Clearance w eGFR POC Glucometer 112.74519 Random Glucose Calcium Phosphorus Magnesium Total Bilirubin AST ALT Alkaline Phosphatase Total Protein Albumin Vancomycin Trough Active Medications Generic Name Dose Route Start Last Admin Trade Name Freq PRN Reason Stop Dose Admin Acetaminophen 650 mg 01/11/17 18:21 01/13/17 05:54 Tylenol - PO 650 mg Q6H PRN Administration FEVER OR PAIN Docusate Sodium 100 mg 01/11/17 07:03 01/11/17 10:00 Colace - PO 100 mg BID PRN Administration CONSTIPATION Hydromorphone HCl 1 mg 01/11/17 07:03 01/12/17 09:32 Dilaudid Injection - IVPUSH 1 mg Q4H PRN Administration PAIN Meropenem 1 gm/ Dextrose 100 mls @ 250 mls/hr 01/11/17 22:00 01/13/17 09:57 IVPB 250 mls/hr BID YOMI Administration Protocol Sodium Chloride 1,000 mls @ 75 mls/hr 01/13/17 09:45 01/13/17 09:58 Normal Saline - IV 75 mls/hr ASDIR YOMI Administration Insulin Aspart 1 vial 01/11/17 07:00 01/13/17 12:00 Novolog Vial Sliding Scale - SQ Not Given ACHS YOMI Protocol Magnesium Oxide 400 mg 01/12/17 10:00 01/13/17 09:58 Mag-Ox - PO 400 mg DAILY YOMI Administration Non-Formulary Medication 300 mg 01/12/17 10:00 Posaconazole [Noxafil] PO DAILY YOMI Nystatin 500,000 units 01/12/17 12:00 01/13/17 18:21 Nystatin Oral Suspension - PO 500,000 units Q6HPO YOMI Administration Sodium Chloride 1,000 ml 01/11/17 00:57 01/11/17 02:09 Normal Saline - IV 1,000 ml Q20M PRN Administration MAP<65mm Hg OR SBP <90 Sodium Chloride 2 spray 01/11/17 22:00 01/13/17 09:59 [place] Nas[place] - NS 2 spray BID YOMI Administration Ursodiol 300 mg 01/11/17 22:00 01/13/17 09:58 Actigal - PO 300 mg BID YOMI Administration Vancomycin HCl 1,000 mg 01/13/17 05:00 01/13/17 05:54 Vancomycin (Pre-Docked) IVPB 1,000 mg Q48H YOMI Administration Home Medications Medication Instructions Recorded Amlodipine Besylate [Norvasc -] 5 mg PO DAILY 01/13/16 Magnesium Oxide [Magnesium] 400 mg PO DAILY 01/13/16 Oxycodone HCl/Acetaminophen 1 tab PO Q8H PRN 01/13/16 [Percocet 5/325 -] Posaconazole [Noxafil] 300 mg PO DAILY 01/13/16 Sulfamethoxazole/Trimethoprim 1 tab PO BID 01/13/16 [Bactrim Ds -] Tacrolimus [Prograf] 0.5 mg PO BID 01/13/16 Ursodiol [Actigal] 300 mg PO BID 01/13/16 Valganciclovir HCl 450 mg PO BID 01/13/16 Microbiology 01/11/17 20:30 Nasopharyngeal Swab Respiratory Virus (PCR) - Preliminary 01/11/17 01:00 Blood - Peripheral Venous Blood Culture - Final NO GROWTH AFTER 5 DAYS INCUBATION 01/11/17 01:00 Blood - Peripheral Venous Blood Culture - Final NO GROWTH AFTER 5 DAYS INCUBATION 01/12/17 08:00 Urine - Urine Clean Catch Urine Culture - Final NO GROWTH OBTAINED 01/11/17 20:30 Nasopharyngeal Swab Influenza Types A,B Antigen (KATHARINE) - Final 01/11/17 20:30 Nasopharyngeal Swab - Final CT scan of the chest 2cm mass on the left lower mass most most likely neoplastic process ASSESSMENT/PLAN: 61 yo M with significant PMHx of AML, NIDDM, HTN, HLD, and DVT, admitted for management of severe sepsis. #s/p Severe sepsis( fever of 104 presented with , now 99, tachycardia improved now, elevated wbc back to normal ) with Acute renal failure improving 26/2.1 ; Blood culture,UA,urine culture , no growth so far, ID on the case . on Vancomycin/Meropenem. On Antifungal prophylaxis- would continue Noxafil for now #Acute pancytopenia improving ( now qith thrombocytopenia and anemia ,due to experimental therapy that was given s/p STem cell transplant , due to his AML/ chemotherapy - improved s/p transfusions s/p tansfusion of FFP 2 units, platelets 2 units, 2 units of PRBC, Fibrinogen elevated , Haptoglobulin elevated , Oncology consult discussed with. # Acute renal failure improving consulted dr Linn ; prograf level was send out, On IVF now ;improving # Acute hypophosphetemia and hypokalemia ; being repleted with Kphos IV # Facial Trauma s/p fall #DM ;NISS #HTN ; monitor , on norvasc 5mg with parameters #Palliative consult to discuss with family for possible hospice Visit type - Emergency Visit Emergency Visit: Yes ED Registration Date: 01/11/17 Care time: The patient presented to the Emergency Department on the above date and was hospitalized for further evaluation of their emergent condition. - New Patient This patient is new to me today: No - Critical Care Critical Care patient: No
[2017-01-13] MEDS ORDERED: SODIUM CHLORIDE 500 ML with POTASSIUM PHOSPHATE 30 MM IVPB SCH (19:00)
[2017-01-13] MEDS ORDERED: POTASSIUM PHOSPHATE 30 MM in SODIUM CHLORIDE 500 ML IVPB ONE (20:42)
[2017-01-14] MEDS: ACETAMINOPHEN 325 MG TABLET (FP) PO PRN (05:59)
[2017-01-14] MEDS: INSULIN SLIDING SCALE (NOVOLOG) 1 VIAL SQ SCH ×4 (06:00→22:51)
[2017-01-14] MEDS: NYSTATIN 500,000 UNITS/5 ML SUSPENSION PO SCH ×4 (06:00→23:12)
[2017-01-14 06:12] LABS: MCH 30.3 pg (25.7-33.7); MCHC 34.5 g/dl (32.0-35.9); MEAN CELL VOLUME 87.7 fl (80-96); MEAN PLT VOLUME 9.2 fl (7.5-11.1); PLATELET COUNT 44 K/MM3 (134-434); RDW 14.6 % (11.9-15.9); WHITE BLOOD COUNT 7.7 K/mm3 (4.0-10.0)
[2017-01-14 06:54] LABS: CALCIUM 7.7 mg/dL (8.5-10.1)
[2017-01-14 06:55] LABS: CREATININE 1.7 mg/dL (0.7-1.3)
[2017-01-14] MEDS ORDERED: PT OWN MED DRAWER 7, Y5N ONE ×2 (09:08→21:44)
--- NOTE | 2017-01-14 09:09 | PN ---
Physical Exam: SUBJECTIVE: Patient seen and examined. says he is not seeing double, has floaters in both eyes, worse in the left eye and occurs when watching tv for prolonged period, staring at a person or when reading, blinking his eyes resolves the floaters. does not recall having floaters prior to his fall. denies eye pain, eye discharge, fever, chest pain, SOB, dysuria, hematuria, constipation/melena. OBJECTIVE: Vital Signs Period Temp Pulse Resp BP Sys/Martinez Pulse Ox Last 24 Hr 98.2 F-101.3 F 77-96 18-18 101-118/60-80 97-97 GENERAL: The patient is awake, alert, and fully oriented, in no acute distress. HEAD: mild swelling over right temporal, maxiallary, frontal areas, ttp, no bleeding, no broken skin. EYES: PERRL, extraocular movements intact, sclera anicteric, conjunctiva clear. No ptosis. visual kaiser grossly intact. ENT: Ears normal, nares patent, oropharynx clear without exudates, moist mucous membranes. small swelling and tenderness under left upper lip interiorly, no discharge no laceration. NECK: Trachea midline, full range of motion, supple. LUNGS: Breath sounds equal, clear to auscultation bilaterally, no wheezes, no crackles, no accessory muscle use. HEART: Regular rate and rhythm, S1, S2 without murmur, rub or gallop. ABDOMEN: Soft, nontender, nondistended, normoactive bowel sounds EXTREMITIES: 2+ pulses, warm, well-perfused, no edema. NEUROLOGICAL: Normal speech PSYCH: Normal mood, normal affect. condom cath in place clear yellow urine. Laboratory Results - last 24 hr 01/13/17 01/13/17 01/13/17 08:15 12:13 18:43 WBC RBC Hgb Hct MCV MCHC RDW Plt Count MPV Neutrophils % Lymphocytes % Sodium Potassium Chloride Carbon Dioxide Anion Gap BUN Creatinine POC Glucometer 112.54045 124.20991 Random Glucose Calcium Vancomycin Trough 20.041 H* 01/13/17 01/14/17 01/14/17 21:38 05:00 05:00 WBC 7.7 RBC 2.92 L Hgb 8.8 L Hct 25.6 L MCV 87.7 MCHC 34.5 RDW 14.6 Plt Count 44 L D MPV 9.2 Neutrophils % Y Lymphocytes % Y Sodium 144 Potassium 3.9 Chloride 110 H Carbon Dioxide 26 Anion Gap 8 BUN 24 H Creatinine 1.7 H POC Glucometer 130.13406 Random Glucose 103 Calcium 7.7 L Vancomycin Trough Active Medications Generic Name Dose Route Start Last Admin Trade Name Freq PRN Reason Stop Dose Admin Acetaminophen 650 mg 01/11/17 18:21 01/14/17 05:59 Tylenol - PO 650 mg Q6H PRN Administration FEVER OR PAIN Docusate Sodium 100 mg 01/11/17 07:03 01/11/17 10:00 Colace - PO 100 mg BID PRN Administration CONSTIPATION Hydromorphone HCl 1 mg 01/11/17 07:03 01/12/17 09:32 Dilaudid Injection - IVPUSH 1 mg Q4H PRN Administration PAIN Meropenem 1 gm/ Dextrose 100 mls @ 250 mls/hr 01/11/17 22:00 01/13/17 21:21 IVPB 250 mls/hr BID YOMI Administration Protocol Sodium Chloride 1,000 mls @ 75 mls/hr 01/13/17 09:45 01/13/17 09:58 Normal Saline - IV 75 mls/hr ASDIR YOMI Administration Insulin Aspart 1 vial 01/11/17 07:00 01/14/17 06:00 Novolog Vial Sliding Scale - SQ Not Given ACHS YOMI Protocol Magnesium Oxide 400 mg 01/12/17 10:00 01/13/17 09:58 Mag-Ox - PO 400 mg DAILY YOMI Administration Non-Formulary Medication 300 mg 01/12/17 10:00 Posaconazole [Noxafil] PO DAILY YOMI Nystatin 500,000 units 01/12/17 12:00 01/14/17 06:00 Nystatin Oral Suspension - PO 500,000 units Q6HPO YOMI Administration Sodium Chloride 2 spray 01/11/17 22:00 01/13/17 21:34 [place] Nasal [place] - NS 2 spray BID YOMI Administration Ursodiol 300 mg 01/11/17 22:00 01/13/17 21:22 Actigal - PO 300 mg BID YOMI Administration Vancomycin HCl 1,000 mg 01/13/17 05:00 01/13/17 05:54 Vancomycin (Pre-Docked) IVPB 1,000 mg Q48H YOMI Administration ASSESSMENT/PLAN: 61 yo man with AML(receiving trial chemotherapy, hospice) NIDDM, HTN, HLD, hx of DVT, s/p fall and hematuria admitted for managment of severe sepsis. - Followed at [facility] Dr. Gibson(cell [phone], office [phone]) and Dr. Lomeli #Severe sepsis( MILLER, fever, tachycardia, elevated wbc) - improved - IVF @75ml/hr - bld, urine cx, swab for flu, NEG - started on meropenem -- started 01/11 - vanc 01/11-01/14 -- Dr. Shea consulted for ID - continue Posoconazole #MILLER - improved, Cr 1.7 - holding bactrim and valganciclovir for now - monitor I&O, can d/c condom cath and use urinal #Visual changes - pending ophtho consult, though eye exam normal. - will continue to monitor, consider MRI if continues or worsens. #Facial Trauma - ENT consult for non-displaced nasal bone fracture; Recommend: nasal saline spray, ophthalmology consultation, no surgical intervention recommended - optho consult Dr. Egan #pancytopenia( 5.9/17.4, plts of 3), marloley secondary to his AML/chemotherapy - improved s/p transfusions - transfused: 1 units of prbc's, 2 units ffp, 2 units monoplatelets - low FDP's unlikely DIC - Dr. Gaytan consulted #Palliative to discuss GOC with family, as patient is hospice/palliative #DM - NISS #HTN - monitor off norvasc - norvasc 5mg(home med) #DVT: scd's #Diet; diabetic Visit type - Emergency Visit Emergency Visit: No - New Patient This patient is new to me today: No - Critical Care Critical Care patient: Yes Total Critical Care Time (in minutes): 37 Critical Care Statement: The care of this patient involved high complexity decision making to prevent further life threatening deterioration of the patient 's condition and/or to evalute & treat vital organ system(s) failure or risk of failure. - Discharge Referral Referred to [facility] Med [facility] No
[2017-01-14] MEDS: URSODIOL 300 MG CAPSULE PO SCH ×2 (09:41→21:47)
[2017-01-14] MEDS: SODIUM CHLORIDE NASAL SPRAY 44 ML BOTTLE NS SCH ×2 (09:41→21:46)
[2017-01-14] MEDS: MAGNESIUM OXIDE 400 MG TABLET (FP) PO SCH (09:41)
[2017-01-14] MEDS: SODIUM CHLORIDE 1,000 ML IV SCH (09:42)
[2017-01-14] MEDS: MEROPENEM 1 GM in DEXTROSE 5%-WATER - 100 ML IVPB SCH ×2 (09:51→22:50)
[2017-01-14 10:00] LABS: METAMYELOCYTE 3 % (0-2)
--- NOTE | 2017-01-14 10:11 | PN ---
Progress Note, Physician Chief Complaint: Renal F/U Pt remains without any complaints No N/V or diarrhea Ate all of his breakfast Renal and U Bladder US with B/L renal cysts and increased echogenicity and no increased PVR - Current Medication List Current Medications: Active Medications Acetaminophen (Tylenol -) 650 mg PO Q6H PRN PRN Reason: FEVER OR PAIN Last Admin: 01/14/17 05:59 Dose: 650 mg Docusate Sodium (Colace -) 100 mg PO BID PRN PRN Reason: CONSTIPATION Last Admin: 01/11/17 10:00 Dose: 100 mg Hydromorphone HCl (Dilaudid Injection -) 1 mg IVPUSH Q4H PRN PRN Reason: PAIN Last Admin: 01/12/17 09:32 Dose: 1 mg Meropenem 1 gm/ Dextrose 100 mls @ 250 mls/hr IVPB BID YOIM PRN Reason: Protocol Last Admin: 01/14/17 09:51 Dose: 250 mls/hr Sodium Chloride (Normal Saline -) 1,000 mls @ 75 mls/hr IV ASDIR [facility] Last Admin: 01/14/17 09:42 Dose: 75 mls/hr Insulin Aspart (Novolog Vial Sliding Scale -) 1 vial SQ ACHS YOMI PRN Reason: Protocol Last Admin: 01/14/17 06:00 Dose: Not Given Magnesium Oxide (Mag-Ox -) 400 mg PO DAILY [facility] Last Admin: 01/14/17 09:41 Dose: 400 mg Non-Formulary Medication (Posaconazole [Noxafil]) 300 mg PO DAILY [facility] Nystatin (Nystatin Oral Suspension -) 500,000 units PO Q6HPO [facility] Last Admin: 01/14/17 06:00 Dose: 500,000 units Sodium Chloride ([place] Nasal [place] -) 2 spray NS BID [facility] Last Admin: 01/14/17 09:41 Dose: 2 spray Ursodiol (Actigal -) 300 mg PO BID [facility] Last Admin: 01/14/17 09:41 Dose: 300 mg Vancomycin HCl (Vancomycin (Pre-Docked)) 1,000 mg IVPB Q48H [facility] Last Admin: 01/13/17 05:54 Dose: 1,000 mg - Objective Vital Signs: Vital Signs Temperature 99.8 F H 01/14/17 06:00 Pulse Rate 77 01/14/17 08:00 Respiratory Rate 18 01/14/17 08:00 Blood Pressure 117/73 01/14/17 08:00 O2 Sat by Pulse Oximetry (%) 97 01/14/17 09:00 Constitutional: Yes: No Distress, Calm Cardiovascular: Yes: S1, S2 Respiratory: Yes: CTA Bilaterally Gastrointestinal: Yes: Soft. No: Tenderness, Rebound Edema: No Labs: CBC, [facility] 01/14/17 05:00 01/14/17 05:00 INR, PTT INR 1.53 (0.82-1.09) H 01/12/17 05:35 Fibrinogen 688.0 mg/dL (238-498) H 01/12/17 05:35 Assessment/Plan Impression MILLER in pt with CKD as evidenced by the abnormal renal sonogram and baseline Cr of 1.3 ~ 6 months ago. Acute component is from prerenal cause and improving with IVF AML S/P Stem Cell tx Anemia with thrombocytopenia which required transfusional support DM Hyperlipidemia HTN H/O DVT S/P gross hematuria Sepsis Plan Continue with NS at 75 cc/hr Once azotemia is back to baseline consider resuming the Bactrim adjusted for the eGFR while carefully monitoring the [facility] Urology evaluation once stgabilized for gross hematuria Rpt labs in am Dr Lujan
--- NOTE | 2017-01-14 11:16 | PN ---
Progress Note (short form) - Note Progress Note: Patient seen and examined in the ICU. Awake and alert. Some cough, but better. No discomfort around the orbit. Intake & Output 01/11/17 01/12/17 01/13/17 01/14/17 23:59 23:59 23:59 23:59 Intake Total 3850 1540 2400 1128 Output Total 900 2880 1950 800 Balance 2950 -1340 450 328 Weight 150 lb 148 lb 150 lb 8 oz 149 lb 4.8 oz Last Vital Signs Temp Pulse Resp BP Pulse Ox 99.0 F 80 18 97/67 97 01/14/17 10:00 01/14/17 10:00 01/14/17 10:00 01/14/17 10:00 01/14/17 10:11 Active Medications Acetaminophen (Tylenol -) 650 mg PO Q6H PRN PRN Reason: FEVER OR PAIN Last Admin: 01/14/17 05:59 Dose: 650 mg Docusate Sodium (Colace -) 100 mg PO BID PRN PRN Reason: CONSTIPATION Last Admin: 01/11/17 10:00 Dose: 100 mg Hydromorphone HCl (Dilaudid Injection -) 1 mg IVPUSH Q4H PRN PRN Reason: PAIN Last Admin: 01/12/17 09:32 Dose: 1 mg Meropenem 1 gm/ Dextrose 100 mls @ 250 mls/hr IVPB BID YOMI PRN Reason: Protocol Last Admin: 01/14/17 09:51 Dose: 250 mls/hr Sodium Chloride (Normal Saline -) 1,000 mls @ 75 mls/hr IV ASDIR [facility] Last Admin: 01/14/17 09:42 Dose: 75 mls/hr Insulin Aspart (Novolog Vial Sliding Scale -) 1 vial SQ ACHS YOMI PRN Reason: Protocol Last Admin: 01/14/17 10:49 Dose: Not Given Magnesium Oxide (Mag-Ox -) 400 mg PO DAILY [facility] Last Admin: 01/14/17 09:41 Dose: 400 mg Non-Formulary Medication (Posaconazole [Noxafil]) 300 mg PO DAILY [facility] Nystatin (Nystatin Oral Suspension -) 500,000 units PO Q6HPO [facility] Last Admin: 01/14/17 06:00 Dose: 500,000 units Sodium Chloride ([place]al [place] -) 2 spray NS BID [facility] Last Admin: 01/14/17 09:41 Dose: 2 spray Ursodiol (Actigal -) 300 mg PO BID [facility] Last Admin: 01/14/17 09:41 Dose: 300 mg Vancomycin HCl (Vancomycin (Pre-Docked)) 1,000 mg IVPB Q48H [facility] Last Admin: 01/13/17 05:54 Dose: 1,000 mg Constitutional: Yes: Awake and alert. NAD Eyes: Yes: Conjunctiva Clear, EOM Intact HENT: Yes: Atraumatic, Normocephalic Neck: Yes: Supple, Trachea Midline Cardiovascular: Yes: S1S2 Respiratory: Yes: Basilar rhonchi Gastrointestinal: Yes: Normal Bowel Sounds, Soft. No: Tenderness Edema: No Neurological: Yes: Alert, Oriented Labs: Laboratory Results - last 24 hr 01/13/17 01/13/17 01/13/17 12:13 18:43 21:38 WBC RBC Hgb Hct MCV MCHC RDW Plt Count MPV Neutrophils % Lymphocytes % Monocytes % Eosinophils % Basophils % Metamyelocytes Promyelocytes Differential Comment Blast Cells Sodium Potassium Chloride Carbon Dioxide Anion Gap BUN Creatinine POC Glucometer 112.88420 124.22726 130.66517 Random Glucose Calcium 01/14/17 01/14/17 01/14/17 05:00 05:00 05:51 WBC 7.7 RBC 2.92 L Hgb 8.8 L Hct 25.6 L MCV 87.7 MCHC 34.5 RDW 14.6 Plt Count 44 L D MPV 9.2 Neutrophils % 16.0 L D Lymphocytes % 48.0 H Monocytes % 18.0 H Eosinophils % 1.0 Basophils % 1.0 Metamyelocytes 3 H D Promyelocytes 1 Differential Comment Manual diff done Blast Cells 12 H D Sodium 144 Potassium 3.9 Chloride 110 H Carbon Dioxide 26 Anion Gap 8 BUN 24 H Creatinine 1.7 H POC Glucometer 125.58424 Random Glucose 103 Calcium 7.7 L 01/14/17 10:46 WBC RBC Hgb Hct MCV MCHC RDW Plt Count MPV Neutrophils % Lymphocytes % Monocytes % Eosinophils % Basophils % Metamyelocytes Promyelocytes Differential Comment Blast Cells Sodium Potassium Chloride Carbon Dioxide Anion Gap BUN Creatinine POC Glucometer 115.44734 Random Glucose Calcium Assessment/Plan LLL Pneumonia Severe Sepsis Acute on Chronic Renal Failure AML Severe Anemia Severe Thrombocytopenia h/o DVT - ABX per ID - Transfusional support / normal transfusion thresholds - IVF at 75cc/hr - monitor urine output, creatinine - O2 to keep SpO2 >90% - DVT/GI prophylaxis - Pain control - Incentive Spirometry - Monitor off Norvasc - 4W/4S Dr Walker CCTime 35"
--- NOTE | 2017-01-14 15:27 | PN ---
Progress Note (short form) - Note Progress Note: S : Patient says he feels better today, was sitting up all day, had family visiting. His diplopia is on and off. Last Vital Signs Temp Pulse Resp BP Pulse Ox 99.2 F 88 18 116/72 97 01/14/17 14:00 01/14/17 14:00 01/14/17 14:00 01/14/17 14:00 01/14/17 15:11 Physical Exam AOx3, PERRLA, EOMI, No nystagmus, preserved visual kaiser and distance vision intact Neck soft, no lnd Chest : clear on the right, decreased breath sounds on the left S12 WNL, No m/g/r Soft abdomen No c/c/e Nonfocal neuro exam CBC, BMP 01/14/17 05:00 01/14/17 05:00 Current Medications Generic Name Dose Route Start Last Admin Trade Name Freq PRN Reason Stop Dose Admin Acetaminophen 650 mg 01/11/17 18:21 01/14/17 05:59 Tylenol - PO 650 mg Q6H PRN Administration FEVER OR PAIN Docusate Sodium 100 mg 01/11/17 07:03 01/11/17 10:00 Colace - PO 100 mg BID PRN Administration CONSTIPATION Hydromorphone HCl 1 mg 01/11/17 07:03 01/12/17 09:32 Dilaudid Injection - IVPUSH 1 mg Q4H PRN Administration PAIN Meropenem 1 gm/ Dextrose 100 mls @ 250 mls/hr 01/11/17 22:00 01/14/17 09:51 IVPB 250 mls/hr BID YOMI Administration Protocol Sodium Chloride 1,000 mls @ 75 mls/hr 01/13/17 09:45 01/14/17 09:42 Normal Saline - IV 75 mls/hr ASDIR YOMI Administration Insulin Aspart 1 vial 01/11/17 07:00 01/14/17 10:49 Novolog Vial Sliding Scale - SQ Not Given ACHS YOMI Protocol Magnesium Oxide 400 mg 01/12/17 10:00 01/14/17 09:41 Mag-Ox - PO 400 mg DAILY YOMI Administration Non-Formulary Medication 300 mg 01/12/17 10:00 Posaconazole [Noxafil] PO DAILY YOMI Nystatin 500,000 units 01/12/17 12:00 01/14/17 11:19 Nystatin Oral Suspension - PO 500,000 units Q6HPO YOMI Administration Sodium Chloride 2 spray 01/11/17 22:00 01/14/17 09:41 [place] Nasal [place] - NS 2 spray BID YOMI Administration Ursodiol 300 mg 01/11/17 22:00 01/14/17 09:41 Actigal - PO 300 mg BID YOMI Administration Vancomycin HCl 1,000 mg 01/13/17 05:00 01/13/17 05:54 Vancomycin (Pre-Docked) IVPB 1,000 mg Q48H YOMI Administration A/P : Mr Castellanos is a 61 y/o male with Hx of MDS treated with hypomethylating therapy, multiple clinical trials, then transformed to AML received induction, consolidation chemotherapy, had a 08/05 [facility] AlloStem cell transplant in 11/2015 very poorly compliant with outpatient medications including antibiotics and immunosuppresives who was recently noted to have relapsed disease on bone marrow biopsy and started on [employer] LSD1 inhibitor trial. He was admitted on 01/11 after he suffered a fall on the pavement, hit his head and had been having hematuria at home. Platelet count on arrival noted to be 3, additionally concern also for sepsis with new pulmonary consolidation, diarrhea etc. 1. Pancytopenia - is now improved, continue with supportive transfusions with platelet goal of 20k and Hgb goal of 8 2. New infections, sepsis- on broad spectrum antibiotic coverage with meropenem and vancomycin, new left lower lobe consolidation with contiguous 2 cms mass, unclear what this mass is? Would recommend follow-up CT scans in 2 weeks- if there is no resolution of mass and /or consolidation, will need bronch + biopsy of this lesion. DD includes- infectious , granuloma, chloroma from AML or new lung primary -Blood cultures negative so far, stool cultures awaited 3.MILLER now improving, renally dose all medications and avoid nephrotoxins 4.coagulopathy- would treat with cryoppt or FFP only in the setting of bleeding again 5.AML- Hold investigational treatment and tacrolimus (pt non-compliant with tacrolimus as outpatient) 6.diplopia - patient claims to have left eye diplopia but visual testing was normal. He now says that diplopia is on and off and positional, can consider an MRI in 1-2 days if diplopia does not resolve 7. Dispo- home with IV abx if suggested per ID, will need PICC line placement and follow up to be established with at [facility].
--- NOTE | 2017-01-14 17:22 | PN ---
Progress Note, Physician History of Present Illness: had a spike last evening other than that patient stable very low grade temp - Current Medication List Current Medications: Active Medications Acetaminophen (Tylenol -) 650 mg PO Q6H PRN PRN Reason: FEVER OR PAIN Last Admin: 01/14/17 05:59 Dose: 650 mg Docusate Sodium (Colace -) 100 mg PO BID PRN PRN Reason: CONSTIPATION Last Admin: 01/11/17 10:00 Dose: 100 mg Hydromorphone HCl (Dilaudid Injection -) 1 mg IVPUSH Q4H PRN PRN Reason: PAIN Last Admin: 01/12/17 09:32 Dose: 1 mg Meropenem 1 gm/ Dextrose 100 mls @ 250 mls/hr IVPB BID YOMI PRN Reason: Protocol Last Admin: 01/14/17 09:51 Dose: 250 mls/hr Sodium Chloride (Normal Saline -) 1,000 mls @ 75 mls/hr IV ASDIR YOMI Last Admin: 01/14/17 09:42 Dose: 75 mls/hr Insulin Aspart (Novolog Vial Sliding Scale -) 1 vial SQ ACHS YOMI PRN Reason: Protocol Last Admin: 01/14/17 16:04 Dose: Not Given Magnesium Oxide (Mag-Ox -) 400 mg PO DAILY [facility] Last Admin: 01/14/17 09:41 Dose: 400 mg Non-Formulary Medication (Posaconazole [Noxafil]) 300 mg PO DAILY [facility] Nystatin (Nystatin Oral Suspension -) 500,000 units PO Q6HPO [facility] Last Admin: 01/14/17 17:06 Dose: Not Given Sodium Chloride ([place] Nasal [place] -) 2 spray NS BID [facility] Last Admin: 01/14/17 09:41 Dose: 2 spray Ursodiol (Actigal -) 300 mg PO BID [facility] Last Admin: 01/14/17 09:41 Dose: 300 mg Vancomycin HCl (Vancomycin (Pre-Docked)) 1,000 mg IVPB Q48H [facility] Last Admin: 01/13/17 05:54 Dose: 1,000 mg - Objective Vital Signs: Vital Signs Temperature 99.2 F 01/14/17 14:00 Pulse Rate 85 01/14/17 16:00 Respiratory Rate 18 01/14/17 16:00 Blood Pressure 112/61 01/14/17 16:00 O2 Sat by Pulse Oximetry (%) 97 01/14/17 15:11 Constitutional: Yes: No Distress, Calm Cardiovascular: Yes: Regular Rate and Rhythm Respiratory: Yes: Regular, Poor Air Entry, Other Gastrointestinal: Yes: Normal Bowel Sounds, Soft Musculoskeletal: Yes: WNL Extremities: Yes: WNL Neurological: Yes: Alert, Oriented Psychiatric: Yes: Alert, Oriented Labs: CBC, BMP 01/14/17 05:00 01/14/17 05:00 INR, PTT INR 1.53 (0.82-1.09) H 01/12/17 05:35 Fibrinogen 688.0 mg/dL (238-498) H 01/12/17 05:35 Assessment/Plan 1. MILLER 2. 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 DM 5. hyperlipidemia 6. HTN 7. hx DVT 8. hematuria 9. sepsis 10. thrombocytopenia 11. anemia 12 pneumonia renal failure leukocytosis oral thrush leukocytosis has resolved plan continue abx repeat cx are negative incentive pallavi monitor fevers continue supportive measures patient was able to walk with physio will wait for patient to be febrile for at least 48 hrs before deescalating will stop lety lundberg cc time 40 min
--- NOTE | 2017-01-14 18:07 | PN ---
Teaching Attending Note Name of Resident: Jennifer Harrington ATTENDING PHYSICIAN STATEMENT I saw and evaluated the patient. I reviewed the resident's note and discussed the case with the resident. I agree with the resident's findings and plan as documented. SUBJECTIVE: DENIES having double vision positive for floaters in both eyes. OBJECTIVE: Vital Signs Temperature 99.2 F 01/14/17 14:00 Pulse Rate 85 01/14/17 16:00 Respiratory Rate 18 01/14/17 16:00 Blood Pressure 112/61 01/14/17 16:00 O2 Sat by Pulse Oximetry (%) 97 01/14/17 15:11 GENERAL: The patient is awake, alert, and fully oriented, in no acute distress. HEAD: Normal with no signs of trauma. EYES: PERRL, extraocular movements intact, sclera anicteric, conjunctiva clear. ENT: Ears normal, oropharynx clear without exudates, moist mucous membranes. NECK: Trachea midline, full range of motion, supple. LUNGS: Breath sounds equal, clear to auscultation bilaterally, no wheezes, no crackles, no accessory muscle use. HEART: Regular rate and rhythm, S1, S2 without murmur, rub or gallop. ABDOMEN: Soft, nontender, ND, normoactive bowel sounds, no guarding, no rebound , no hepatosplenomegaly, no masses. EXTREMITIES: 2+ pulses, warm, well-perfused, no edema. NEUROLOGICAL: Cranial nerves II through XII grossly intact. Normal speech, gait not observed. PSYCH: Normal mood, normal affect. SKIN: Warm, dry, normal turgor, no rashes or lesions noted. CBCD WBC 7.7 K/mm3 (4.0-10.0) 01/14/17 05:00 RBC 2.92 M/mm3 (4.00-5.60) L 01/14/17 05:00 Hgb 8.8 GM/dL (11.7-16.9) L 01/14/17 05:00 Hct 25.6 % (35.4-49) L 01/14/17 05:00 MCV 87.7 fl (80-96) 01/14/17 05:00 MCHC 34.5 g/dl (32.0-35.9) 01/14/17 05:00 RDW 14.6 % (11.9-15.9) 01/14/17 05:00 Plt Count 44 K/MM3 (134-434) L D 01/14/17 05:00 MPV 9.2 fl (7.5-11.1) 01/14/17 05:00 CMP Sodium 144 mmol/L (136-145) 01/14/17 05:00 Potassium 3.9 mmol/L (3.5-5.1) 01/14/17 05:00 Chloride 110 mmol/L (98-107) H 01/14/17 05:00 Carbon Dioxide 26 mmol/L (21-32) 01/14/17 05:00 Anion Gap 8 (8-16) 01/14/17 05:00 BUN 24 mg/dL (7-18) H 01/14/17 05:00 Creatinine 1.7 mg/dL (0.7-1.3) H 01/14/17 05:00 Creat Clearance w eGFR 32.16 (>60) 01/13/17 05:00 Random Glucose 103 mg/dL (74-106) 01/14/17 05:00 Calcium 7.7 mg/dL (8.5-10.1) L 01/14/17 05:00 Total Bilirubin 0.7 mg/dL (0.2-1.0) D 01/13/17 05:00 AST 63 U/L (15-37) H D 01/13/17 05:00 ALT 46 U/L (12-78) D 01/13/17 05:00 Alkaline Phosphatase 73 U/L (45-117) 01/13/17 05:00 Total Protein 5.9 g/dl (6.4-8.2) L 01/13/17 05:00 Albumin 2.0 g/dl (3.4-5.0) L 01/13/17 05:00 CARDIAC ENZYMES Creatine Kinase 310 IU/L (39-308) H D 01/12/17 05:35 Troponin I 0.13 ng/ml (0.00-0.05) H 01/12/17 05:35 Current Medications Generic Name Dose Route Start Last Admin Trade Name Freq PRN Reason Stop Dose Admin Acetaminophen 650 mg 01/11/17 18:21 01/14/17 05:59 Tylenol - PO 650 mg Q6H PRN Administration FEVER OR PAIN Docusate Sodium 100 mg 01/11/17 07:03 01/11/17 10:00 Colace - PO 100 mg BID PRN Administration CONSTIPATION Hydromorphone HCl 1 mg 01/11/17 07:03 01/12/17 09:32 Dilaudid Injection - IVPUSH 1 mg Q4H PRN Administration PAIN Meropenem 1 gm/ Dextrose 100 mls @ 250 mls/hr 01/11/17 22:00 01/14/17 09:51 IVPB 250 mls/hr BID YOMI Administration Protocol Sodium Chloride 1,000 mls @ 75 mls/hr 01/13/17 09:45 01/14/17 09:42 Normal Saline - IV 75 mls/hr ASDIR YOMI Administration Insulin Aspart 1 vial 01/11/17 07:00 01/14/17 16:04 Novolog Vial Sliding Scale - SQ Not Given ACHS [facility] Protocol Magnesium Oxide 400 mg 01/12/17 10:00 01/14/17 09:41 Mag-Ox - PO 400 mg DAILY YOMI Administration Non-Formulary Medication 300 mg 01/12/17 10:00 Posaconazole [Noxafil] PO DAILY [facility] Nystatin 500,000 units 01/12/17 12:00 01/14/17 17:06 Nystatin Oral Suspension - PO Not Given Q6HPO [facility] Sodium Chloride 2 spray 01/11/17 22:00 01/14/17 09:41 [place] Nasal [place] - NS 2 spray BID [facility] Administration Ursodiol 300 mg 01/11/17 22:00 01/14/17 09:41 Actigal - PO 300 mg BID YOMI Administration Home Medications Medication Instructions Recorded Amlodipine Besylate [Norvasc -] 5 mg PO DAILY 01/13/16 Magnesium Oxide [Magnesium] 400 mg PO DAILY 01/13/16 Oxycodone HCl/Acetaminophen 1 tab PO Q8H PRN 01/13/16 [Percocet 5/325 -] Posaconazole [Noxafil] 300 mg PO DAILY 01/13/16 Sulfamethoxazole/Trimethoprim 1 tab PO BID 01/13/16 [Bactrim Ds -] Tacrolimus [Prograf] 0.5 mg PO BID 01/13/16 Ursodiol [Actigal] 300 mg PO BID 01/13/16 Valganciclovir HCl 450 mg PO BID 01/13/16 CT scan of the chest 2cm mass on the left lower mass most most likely neoplastic process. ASSESSMENT AND PLAN: 61 yo M with significant PMHx of AML, NIDDM, HTN, HLD, and DVT, admitted for management of severe sepsis. #s/p severe sepsis ; no fever now, back to his norm. On Merepenem now, off Vancomycin . Cultures negative so far.ID , On Antifungal prophylaxis- would continue Noxafil. # Acute renal failure improving ; today ,Nephro appreciated. #Acute pancytopenia improving ,due to experimental therapy that was given s/p Stem cell transplant , due to his AML/chemotherapy - improved s/p transfusions s /p tansfusion of FFP 2 units, platelets 2 units, 2 units of PRBC, Fibrinogen elevated , Haptoglobulin elevated , Oncology consult # Facial Trauma s/p fall #DM ;NISS #HTN ; monitor , on norvasc 5mg with parameters DVT Px: SCds
[2017-01-15] MEDS: ACETAMINOPHEN 325 MG TABLET (FP) PO PRN (01:47)
[2017-01-15] MEDS: NYSTATIN 500,000 UNITS/5 ML SUSPENSION PO SCH ×3 (06:14→17:41)
[2017-01-15] MEDS: INSULIN SLIDING SCALE (NOVOLOG) 1 VIAL SQ SCH ×4 (06:14→21:19)
--- NOTE | 2017-01-15 08:02 | PN ---
Progress Note (short form) - Note Progress Note: Patient seen and examined ROS No Headaches, DENIES DIPLOPIA TODAY, ( note that experimental drug can be associated with [employer] symptoms) ,no dysphagia, chest pains, SOB, dyspnea, couh, sputum GI symptoms of nausea, emesis, diarrhea, constipation, dysuria, hematuria , back or bone pains, paresthesias of LE's Talks about discharge and outpatient therapy Last Vital Signs Temp Pulse Resp BP Pulse Ox 98.3 F 88 18 133/78 95 01/15/17 06:00 01/15/17 06:00 01/15/17 06:00 01/15/17 06:00 01/14/17 21:00 HEENT: DEANNA, EOM Intact Oropharynx: No thrush, No mucositis Neck: Supple Nodes: Without adenopathy Cor: RSR, No murmurs, No gallops Lungs: decreased breath sounds RLL rales RLL and LLL Abd: Soft, Normal bowel sounds, No organomegaly Ext:No significant edema Skin: No rashes, Integument intact CBC, BMP 01/14/17 05:00 01/14/17 05:00 Current Medications Generic Name Dose Route Start Last Admin Trade Name Freq PRN Reason Stop Dose Admin Acetaminophen 650 mg 01/11/17 18:21 01/15/17 01:47 Tylenol - PO 650 mg Q6H PRN Administration FEVER OR PAIN Docusate Sodium 100 mg 01/11/17 07:03 01/11/17 10:00 Colace - PO 100 mg BID PRN Administration CONSTIPATION Hydromorphone HCl 1 mg 01/11/17 07:03 01/12/17 09:32 Dilaudid Injection - IVPUSH 1 mg Q4H PRN Administration PAIN Meropenem 1 gm/ Dextrose 100 mls @ 250 mls/hr 01/11/17 22:00 01/14/17 22:50 IVPB 250 mls/hr BID YOMI Administration Protocol Sodium Chloride 1,000 mls @ 75 mls/hr 01/13/17 09:45 01/14/17 09:42 Normal Saline - IV 75 mls/hr ASDIR YOMI Administration Insulin Aspart 1 vial 01/11/17 07:00 01/15/17 06:14 Novolog Vial Sliding Scale - SQ Not Given ACHS YOMI Protocol Magnesium Oxide 400 mg 01/12/17 10:00 01/14/17 09:41 Mag-Ox - PO 400 mg DAILY YOMI Administration Non-Formulary Medication 300 mg 01/12/17 10:00 Posaconazole [Noxafil] PO DAILY YOMI Nystatin 500,000 units 01/12/17 12:00 01/15/17 06:14 Nystatin Oral Suspension - PO 500,000 units Q6HPO YOMI Administration Sodium Chloride 2 spray 01/11/17 22:00 01/14/17 21:46 [place] Nasal [place] - NS 2 spray BID YOMI Administration Ursodiol 300 mg 01/11/17 22:00 01/14/17 21:47 Actigal - PO 300 mg BID YOMI Administration Impression: AML - not in remission-- continue to withhold experimental drug and Prograf Pancytopenia- falling platelets s/p transfusion. Todays labs pending- Maintain Hb- 8.0 g. Platelets > 10K-15K. ANC >1000 Sepsis- antibiotics per I.D. Duration per I. D. If prolonged course is required - will need outpatient treatment and PICC line. MILLER - slowly improving Pulmonary infiltrate- ?? infectious, inflammatory, neoplastic (??chloroma) ?? other - may need bronchoscopy in future to obtain tissue Coagulopathy- follow up on INR, PTT Will need follow up at [facility] upon discharge on timing of resumption of experimental treatment.
[2017-01-15 08:40] LABS: MCHC 33.8 g/dl (32.0-35.9); MEAN CELL VOLUME 88.8 fl (80-96); MEAN PLT VOLUME 8.5 fl (7.5-11.1); RDW 14.5 % (11.9-15.9); WHITE BLOOD COUNT 8.3 K/mm3 (4.0-10.0)
[2017-01-15 08:49] LABS: PLATELET COUNT 32 K/MM3 (134-434)
[2017-01-15 09:12] LABS: BILIRUBIN,TOTAL 0.5 mg/dL (0.2-1.0); CALCIUM 8.3 mg/dL (8.5-10.1); CREATININE 1.7 mg/dL (0.7-1.3); TOT PROT 6.1 g/dl (6.4-8.2)
[2017-01-15] MEDS ORDERED: PT OWN MED DRAWER 7, Y5N ONE ×2 (10:05→21:14)
[2017-01-15] MEDS: SODIUM CHLORIDE 1,000 ML IV SCH (10:09)
[2017-01-15] MEDS: URSODIOL 300 MG CAPSULE PO SCH ×2 (10:10→21:17)
[2017-01-15] MEDS: MAGNESIUM OXIDE 400 MG TABLET (FP) PO SCH (10:10)
[2017-01-15] MEDS: SODIUM CHLORIDE NASAL SPRAY 44 ML BOTTLE NS SCH ×2 (10:11→21:17)
[2017-01-15] MEDS: MEROPENEM 1 GM in DEXTROSE 5%-WATER - 100 ML IVPB SCH ×2 (10:52→21:16)
--- NOTE | 2017-01-15 11:26 | PN ---
Progress Note, Physician History of Present Illness: PULMONARY ALERT,NAD,-SOB,-CP,-COUGH - Current Medication List Current Medications: Active Medications Acetaminophen (Tylenol -) 650 mg PO Q6H PRN PRN Reason: FEVER OR PAIN Last Admin: 01/15/17 01:47 Dose: 650 mg Docusate Sodium (Colace -) 100 mg PO BID PRN PRN Reason: CONSTIPATION Last Admin: 01/11/17 10:00 Dose: 100 mg Hydromorphone HCl (Dilaudid Injection -) 1 mg IVPUSH Q4H PRN PRN Reason: PAIN Last Admin: 01/12/17 09:32 Dose: 1 mg Meropenem 1 gm/ Dextrose 100 mls @ 250 mls/hr IVPB BID YOMI PRN Reason: Protocol Last Admin: 01/15/17 10:52 Dose: 250 mls/hr Sodium Chloride (Normal Saline -) 1,000 mls @ 75 mls/hr IV ASDIR YOMI Last Admin: 01/15/17 10:09 Dose: 75 mls/hr Insulin Aspart (Novolog Vial Sliding Scale -) 1 vial SQ ACHS YOMI PRN Reason: Protocol Last Admin: 01/15/17 06:14 Dose: Not Given Magnesium Oxide (Mag-Ox -) 400 mg PO DAILY [facility] Last Admin: 01/15/17 10:10 Dose: 400 mg Non-Formulary Medication (Posaconazole [Noxafil]) 300 mg PO DAILY [facility] Nystatin (Nystatin Oral Suspension -) 500,000 units PO Q6HPO [facility] Last Admin: 01/15/17 06:14 Dose: 500,000 units Sodium Chloride ([place] Nasal [place] -) 2 spray NS BID [facility] Last Admin: 01/15/17 10:11 Dose: 2 spray Ursodiol (Actigal -) 300 mg PO BID [facility] Last Admin: 01/15/17 10:10 Dose: 300 mg - Objective Vital Signs: Vital Signs Temperature 98.3 F 01/15/17 06:00 Pulse Rate 88 01/15/17 06:00 Respiratory Rate 18 01/15/17 06:00 Blood Pressure 133/78 01/15/17 06:00 O2 Sat by Pulse Oximetry (%) 95 01/14/17 21:00 Constitutional: Yes: Well Nourished, Calm Eyes: Yes: WNL HENT: Yes: WNL Neck: Yes: WNL Cardiovascular: Yes: Regular Rate and Rhythm, S1, S2 Respiratory: Yes: Diminished Gastrointestinal: Yes: Normal Bowel Sounds, Soft Extremities: Yes: WNL Edema: No Labs: CBC, BMP 01/15/17 06:05 01/15/17 06:05 INR, PTT INR 1.53 (0.82-1.09) H 01/12/17 05:35 Fibrinogen 688.0 mg/dL (238-498) H 01/12/17 05:35 Assessment/Plan Assessment/Plan Pneumonia Severe Sepsis Acute on Chronic Renal Failure AML Severe Anemia Severe Thrombocytopenia h/o DVT - broad spectrum antibiotics as per id - transfuse PRBC, platelets prn - monitor CBC, coags - continue IVF - monitor urine output, creatinine,lytes - O2 to keep SpO2 >90% - DVT/GI prophylaxis DR KANG
[2017-01-15] MEDS ORDERED: INSULIN (NOVOLOG) ASPART 100 UNITS/ML 10ML VIAL ONE (11:54)
--- NOTE | 2017-01-15 12:26 | PN ---
Progress Note, Physician History of Present Illness: patient doing well no complaints had a low grade of temp spike - Current Medication List Current Medications: Active Medications Acetaminophen (Tylenol -) 650 mg PO Q6H PRN PRN Reason: FEVER OR PAIN Last Admin: 01/15/17 01:47 Dose: 650 mg Docusate Sodium (Colace -) 100 mg PO BID PRN PRN Reason: CONSTIPATION Last Admin: 01/11/17 10:00 Dose: 100 mg Hydromorphone HCl (Dilaudid Injection -) 1 mg IVPUSH Q4H PRN PRN Reason: PAIN Last Admin: 01/12/17 09:32 Dose: 1 mg Meropenem 1 gm/ Dextrose 100 mls @ 250 mls/hr IVPB BID YOMI PRN Reason: Protocol Last Admin: 01/15/17 10:52 Dose: 250 mls/hr Sodium Chloride (Normal Saline -) 1,000 mls @ 75 mls/hr IV ASDIR YOMI Last Admin: 01/15/17 10:09 Dose: 75 mls/hr Insulin Aspart (Novolog Vial Sliding Scale -) 1 vial SQ ACHS YOMI PRN Reason: Protocol Last Admin: 01/15/17 12:00 Dose: Not Given Magnesium Oxide (Mag-Ox -) 400 mg PO DAILY [facility] Last Admin: 01/15/17 10:10 Dose: 400 mg Non-Formulary Medication (Posaconazole [Noxafil]) 300 mg PO DAILY [facility] Nystatin (Nystatin Oral Suspension -) 500,000 units PO Q6HPO [facility] Last Admin: 01/15/17 11:59 Dose: 500,000 units Sodium Chloride ([place] Nasal [place] -) 2 spray NS BID [facility] Last Admin: 01/15/17 10:11 Dose: 2 spray Ursodiol (Actigal -) 300 mg PO BID [facility] Last Admin: 01/15/17 10:10 Dose: 300 mg - Objective Vital Signs: Vital Signs Temperature 98.8 F 01/15/17 10:00 Pulse Rate 62 01/15/17 10:00 Respiratory Rate 20 01/15/17 10:00 Blood Pressure 109/70 01/15/17 10:00 O2 Sat by Pulse Oximetry (%) 95 01/14/17 21:00 Constitutional: Yes: No Distress, Calm Neck: Yes: Supple Cardiovascular: Yes: Regular Rate and Rhythm Respiratory: Yes: Regular, CTA Bilaterally Gastrointestinal: Yes: Normal Bowel Sounds, Soft Musculoskeletal: Yes: WNL Extremities: Yes: WNL Neurological: Yes: Alert, Oriented Psychiatric: Yes: Alert, Oriented Labs: CBC, BMP 01/15/17 06:05 01/15/17 06:05 INR, PTT INR 1.53 (0.82-1.09) H 01/12/17 05:35 Fibrinogen 688.0 mg/dL (238-498) H 01/12/17 05:35 Assessment/Plan 1. MILLER 2. 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 DM 5. hyperlipidemia 6. HTN 7. hx DVT 8. hematuria 9. sepsis 10. thrombocytopenia 11. anemia 12 pneumonia renal failure leukocytosis oral thrush plan continue abx for now patient needs to be completely afebrile for 24 hours before abx can be stopped
--- NOTE | 2017-01-15 15:01 | PN ---
Progress Note, Physician History of Present Illness: Pt seen and examined at bedside. He is awake and alert. He feels that his appetite is improved. He denies dysuria. He denies hematuria. - Current Medication List Current Medications: Active Medications Acetaminophen (Tylenol -) 650 mg PO Q6H PRN PRN Reason: FEVER OR PAIN Last Admin: 01/15/17 01:47 Dose: 650 mg Docusate Sodium (Colace -) 100 mg PO BID PRN PRN Reason: CONSTIPATION Last Admin: 01/11/17 10:00 Dose: 100 mg Hydromorphone HCl (Dilaudid Injection -) 1 mg IVPUSH Q4H PRN PRN Reason: PAIN Last Admin: 01/12/17 09:32 Dose: 1 mg Meropenem 1 gm/ Dextrose 100 mls @ 250 mls/hr IVPB BID YOMI PRN Reason: Protocol Last Admin: 01/15/17 10:52 Dose: 250 mls/hr Sodium Chloride (Normal Saline -) 1,000 mls @ 75 mls/hr IV ASDIR YOMI Last Admin: 01/15/17 10:09 Dose: 75 mls/hr Insulin Aspart (Novolog Vial Sliding Scale -) 1 vial SQ ACHS YOMI PRN Reason: Protocol Last Admin: 01/15/17 12:00 Dose: Not Given Magnesium Oxide (Mag-Ox -) 400 mg PO DAILY [facility] Last Admin: 01/15/17 10:10 Dose: 400 mg Non-Formulary Medication (Posaconazole [Noxafil]) 100 mg PO DAILY [facility] Nystatin (Nystatin Oral Suspension -) 500,000 units PO Q6HPO [facility] Last Admin: 01/15/17 11:59 Dose: 500,000 units Sodium Chloride ([place] Nasal [place] -) 2 spray NS BID [facility] Last Admin: 01/15/17 10:11 Dose: 2 spray Ursodiol (Actigal -) 300 mg PO BID [facility] Last Admin: 01/15/17 10:10 Dose: 300 mg - Objective Vital Signs: Vital Signs Temperature 98.8 F 01/15/17 10:00 Pulse Rate 62 01/15/17 10:00 Respiratory Rate 20 01/15/17 10:00 Blood Pressure 109/70 01/15/17 10:00 O2 Sat by Pulse Oximetry (%) 95 01/15/17 10:00 Constitutional: Yes: Calm Eyes: Yes: Conjunctiva Clear HENT: Yes: Atraumatic Neck: Yes: Supple Cardiovascular: Yes: S1, S2 Respiratory: Yes: Regular Gastrointestinal: Yes: Normal Bowel Sounds, Soft Genitourinary: Yes: WNL Musculoskeletal: Yes: WNL Edema: No Neurological: Yes: Oriented Psychiatric: Yes: Oriented Labs: CBC, BMP 01/15/17 06:05 01/15/17 06:05 INR, PTT INR 1.53 (0.82-1.09) H 01/12/17 05:35 Fibrinogen 688.0 mg/dL (238-498) H 01/12/17 05:35 Assessment/Plan Current Medications Generic Name Dose Route Start Last Admin Trade Name Freq PRN Reason Stop Dose Admin Acetaminophen 650 mg 01/11/17 18:21 01/15/17 01:47 Tylenol - PO 650 mg Q6H PRN Administration FEVER OR PAIN Docusate Sodium 100 mg 01/11/17 07:03 01/11/17 10:00 Colace - PO 100 mg BID PRN Administration CONSTIPATION Hydromorphone HCl 1 mg 01/11/17 07:03 01/12/17 09:32 Dilaudid Injection - IVPUSH 1 mg Q4H PRN Administration PAIN Meropenem 1 gm/ Dextrose 100 mls @ 250 mls/hr 01/11/17 22:00 01/15/17 10:52 IVPB 250 mls/hr BID YOMI Administration Protocol Sodium Chloride 1,000 mls @ 75 mls/hr 01/13/17 09:45 01/15/17 10:09 Normal Saline - IV 75 mls/hr ASDIR YOMI Administration Insulin Aspart 1 vial 01/11/17 07:00 01/15/17 12:00 Novolog Vial Sliding Scale - SQ Not Given ACHS Y[facility] Protocol Magnesium Oxide 400 mg 01/12/17 10:00 01/15/17 10:10 Mag-Ox - PO 400 mg DAILY YOMI Administration Non-Formulary Medication 100 mg 01/15/17 13:00 Posaconazole [Noxafil] PO DAILY [facility] Nystatin 500,000 units 01/12/17 12:00 01/15/17 11:59 Nystatin Oral Suspension - PO 500,000 units Q6HPO YOMI Administration Sodium Chloride 2 spray 01/11/17 22:00 01/15/17 10:11 [place] Nasal [place] - NS 2 spray BID YOMI Administration Ursodiol 300 mg 01/11/17 22:00 01/15/17 10:10 Actigal - PO 300 mg BID YOMI Administration renal ultrasound shows bilateral renal cyst, negative hydro Laboratory Tests 01/11/17 01/11/17 01/11/17 07:00 17:00 17:00 Ur Random Sodium 43 Urine Creatinine 115.0 Tacrolimus None detected Impression 1. MILLER 2. 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 DM 5. hyperlipidemia 6. HTN 7. hx DVT 8. hematuria 9. sepsis 10. thrombocytopenia 11. anemia 12. bilateral renal cysts Plan - renal function continues to improve - repeat labs in am - hematuria is improved - likely etiology of MILLER is pre-renal disease. Prolonged prerenal disease can lead to ATN - FENa is 0.79 percent which is consistent with pre-renal disease - repeat labs in am - abx per ID - urology evaluation for gross hematuria - will follow closely
--- NOTE | 2017-01-15 19:47 | PN ---
Progress Note (short form) - Note Progress Note: He is awake and alert. Comfortable with yeison cute distress. No fever or chills. Vital Signs Temperature 99.3 F 01/15/17 15:20 Pulse Rate 64 01/15/17 15:20 Respiratory Rate 20 01/15/17 15:20 Blood Pressure 104/56 01/15/17 15:20 O2 Sat by Pulse Oximetry (%) 95 01/15/17 10:00 GENERAL: The patient is awake, alert, and fully oriented, in no acute distress. HEAD: Normal with no signs of trauma. EYES: PERRL, extraocular movements intact, sclera anicteric, conjunctiva clear. ENT: Ears normal, oropharynx clear without exudates, moist mucous membranes. NECK: Trachea midline, full range of motion, supple. LUNGS: Breath sounds equal, clear to auscultation bilaterally, no wheezes, no crackles, no accessory muscle use. HEART: Regular rate and rhythm, S1, S2 positive , rub or gallop. ABDOMEN: Soft, nontender, ND, normoactive bowel sounds, no guarding, no rebound , no masses. EXTREMITIES: 2+ pulses, warm, well-perfused, no edema. NEUROLOGICAL: Cranial nerves II through XII grossly intact. Normal speech, gait not observed. PSYCH: Normal mood, normal affect. SKIN: Warm, dry, normal turgor, no rashes or lesions noted CBCD WBC 8.3 K/mm3 (4.0-10.0) 01/15/17 06:05 RBC 2.84 M/mm3 (4.00-5.60) L 01/15/17 06:05 Hgb 8.5 GM/dL (11.7-16.9) L 01/15/17 06:05 Hct 25.3 % (35.4-49) L 01/15/17 06:05 MCV 88.8 fl (80-96) 01/15/17 06:05 MCHC 33.8 g/dl (32.0-35.9) 01/15/17 06:05 RDW 14.5 % (11.9-15.9) 01/15/17 06:05 Plt Count 32 K/MM3 (134-434) L* D 01/15/17 06:05 MPV 8.5 fl (7.5-11.1) 01/15/17 06:05 CMP Sodium 144 mmol/L (136-145) 01/15/17 06:05 Potassium 3.8 mmol/L (3.5-5.1) 01/15/17 06:05 Chloride 110 mmol/L (98-107) H 01/15/17 06:05 Carbon Dioxide 27 mmol/L (21-32) 01/15/17 06:05 Anion Gap 7 (8-16) L 01/15/17 06:05 BUN 23 mg/dL (7-18) H 01/15/17 06:05 Creatinine 1.7 mg/dL (0.7-1.3) H 01/15/17 06:05 Creat Clearance w eGFR 41.04 (>60) 01/15/17 06:05 Random Glucose 99 mg/dL (74-106) 01/15/17 06:05 Calcium 8.3 mg/dL (8.5-10.1) L 01/15/17 06:05 Total Bilirubin 0.5 mg/dL (0.2-1.0) D 01/15/17 06:05 AST 29 U/L (15-37) D 01/15/17 06:05 ALT 45 U/L (12-78) 01/15/17 06:05 Alkaline Phosphatase 89 U/L (45-117) D 01/15/17 06:05 Total Protein 6.1 g/dl (6.4-8.2) L 01/15/17 06:05 Albumin 2.0 g/dl (3.4-5.0) L 01/15/17 06:05 CARDIAC ENZYMES Creatine Kinase 310 IU/L (39-308) H D 01/12/17 05:35 Troponin I 0.13 ng/ml (0.00-0.05) H 01/12/17 05:35 Current Medications Generic Name Dose Route Start Last Admin Trade Name Freq PRN Reason Stop Dose Admin Acetaminophen 650 mg 01/11/17 18:21 01/15/17 01:47 Tylenol - PO 650 mg Q6H PRN Administration FEVER OR PAIN Docusate Sodium 100 mg 01/11/17 07:03 01/11/17 10:00 Colace - PO 100 mg BID PRN Administration CONSTIPATION Hydromorphone HCl 1 mg 01/11/17 07:03 01/12/17 09:32 Dilaudid Injection - IVPUSH 1 mg Q4H PRN Administration PAIN Meropenem 1 gm/ Dextrose 100 mls @ 250 mls/hr 01/11/17 22:00 01/15/17 10:52 IVPB 250 mls/hr BID YOMI Administration Protocol Sodium Chloride 1,000 mls @ 75 mls/hr 01/13/17 09:45 01/15/17 10:09 Normal Saline - IV 75 mls/hr ASDIR YOMI Administration Insulin Aspart 1 vial 01/11/17 07:00 01/15/17 17:41 Novolog Vial Sliding Scale - SQ Not Given ACHS YOMI Protocol Magnesium Oxide 400 mg 01/12/17 10:00 01/15/17 10:10 Mag-Ox - PO 400 mg DAILY YOMI Administration Non-Formulary Medication 100 mg 01/16/17 10:00 Posaconazole [Noxafil] PO DAILY YOMI Nystatin 500,000 units 01/12/17 12:00 01/15/17 17:41 Nystatin Oral Suspension - PO 500,000 units Q6HPO YOMI Administration Sodium Chloride 2 spray 01/11/17 22:00 01/15/17 10:11 [place] Nasal [place] - NS 2 spray BID YOMI Administration Ursodiol 300 mg 01/11/17 22:00 01/15/17 10:10 Actigal - PO 300 mg BID YOMI Administration Home Medications Medication Instructions Recorded Amlodipine Besylate [Norvasc -] 5 mg PO DAILY 01/13/16 Magnesium Oxide [Magnesium] 400 mg PO DAILY 01/13/16 Oxycodone HCl/Acetaminophen 1 tab PO Q8H PRN 01/13/16 [Percocet 5/325 -] Posaconazole [Noxafil] 300 mg PO DAILY 01/13/16 Sulfamethoxazole/Trimethoprim 1 tab PO BID 01/13/16 [Bactrim Ds -] Tacrolimus [Prograf] 0.5 mg PO BID 01/13/16 Ursodiol [Actigal] 300 mg PO BID 01/13/16 Valganciclovir HCl 450 mg PO BID 01/13/16 CT scan of the chest 2cm mass on the left lower mass most most likely neoplastic process ASSESSMENT AND PLAN: 61 yo M with significant PMHx of AML, NIDDM, HTN, HLD, and DVT, admitted for management of severe sepsis. #s/p severe sepsis(No further fever or chills) on IV antibiotic Meropenem continue as per ID off Vanco. Negative Blood culture, UA, urine culture , ID on the case . On Antifungal prophylaxis- Noxafil 100mg po daily. On Nyastatin prophylacticaly #Acute pancytopenia (WBC but still thrombocytopenic and anemic but asymtomatic at this point) improved ,due to experimental therapy that was given s/p STem cell transplant , due to his AML/chemotherapy - improved s/p transfusions s/p tansfusion of FFP 2 units, platelets 2 units, 2 units of PRBC, Fibrinogen elevated , Haptoglobulin elevated , Oncology consult discussed with.and discussed with Samy.Doctors who take care of him to hold prograf; to continue Antifungal prophylaxis- would continue Noxafil. # Acute renal failure improving 18/12.7 dr Linn on the case ; prograf level was send out but not detected , On IVF improving. # Facial Trauma s/p fall with Floaters No diplopia f/u with Ophthalmology as an outpatient. #T2DM ;NISS #HTN ; stable not on any meds DVT Px: SCds Visit type - Emergency Visit Emergency Visit: Yes ED Registration Date: 01/11/17 Care time: The patient presented to the Emergency Department on the above date and was hospitalized for further evaluation of their emergent condition. - New Patient This patient is new to me today: No - Critical Care Critical Care patient: No
[2017-01-16] MEDS: NYSTATIN 500,000 UNITS/5 ML SUSPENSION PO SCH ×4 (00:45→17:43)
[2017-01-16] MEDS: ACETAMINOPHEN 325 MG TABLET (FP) PO PRN (05:30)
[2017-01-16] MEDS: INSULIN SLIDING SCALE (NOVOLOG) 1 VIAL SQ SCH ×4 (06:18→22:37)
[2017-01-16 07:57] LABS: CREATININE 1.6 mg/dL (0.7-1.3)
--- NOTE | 2017-01-16 09:19 | PN ---
Physical Exam: SUBJECTIVE: Patient seen and examined feels better. "floaters" have improved, has fewer episodes with shorter duration. Denies chest pain, hematuria, headache, SOB. OBJECTIVE: Vital Signs Period Temp Pulse Resp BP Sys/Martinez Pulse Ox Last 24 Hr 98.8 F-99.3 F 62-83 20-20 104-126/56-75 95-96 GEN: NAD HEENT:AT/NC, mild ttp over left temporal, maxially/frontal sinus, skin intact, no underlying fluctuance, EOMI, DEANNA, no thrush, healing lesion on right upper lip mucosa. trachea midline Lungs: CTAB Card: s1, s2, no mrg abd: soft nontender, nondistended Ext: FROM, no edema, 2+pulses in UE and LE Urinal at bedside: clear yellow urine Laboratory Results - last 24 hr 01/15/17 01/15/17 01/15/17 06:05 11:58 17:40 Sodium 144 Potassium 3.8 Chloride 110 H Carbon Dioxide 27 Anion Gap 7 L BUN 23 H Creatinine 1.7 H Creat Clearance w eGFR 41.04 POC Glucometer 120 103 Random Glucose 99 Calcium 8.3 L Total Bilirubin 0.5 D AST 29 D ALT 45 Alkaline Phosphatase 89 D Total Protein 6.1 L Albumin 2.0 L 01/15/17 01/16/17 01/16/17 20:24 05:32 05:35 Sodium 141 Potassium 3.9 Chloride 108 H Carbon Dioxide 26 Anion Gap 7 L BUN 22 H Creatinine 1.6 H Creat Clearance w eGFR POC Glucometer 104 92 Random Glucose 95 Calcium 8.0 L Total Bilirubin AST ALT Alkaline Phosphatase Total Protein Albumin Active Medications Generic Name Dose Route Start Last Admin Trade Name Freq PRN Reason Stop Dose Admin Acetaminophen 650 mg 01/11/17 18:21 01/16/17 05:30 Tylenol - PO 650 mg Q6H PRN Administration FEVER OR PAIN Docusate Sodium 100 mg 01/11/17 07:03 01/11/17 10:00 Colace - PO 100 mg BID PRN Administration CONSTIPATION Hydromorphone HCl 1 mg 01/11/17 07:03 01/12/17 09:32 Dilaudid Injection - IVPUSH 1 mg Q4H PRN Administration PAIN Meropenem 1 gm/ Dextrose 100 mls @ 250 mls/hr 01/11/17 22:00 01/15/17 21:16 IVPB 250 mls/hr BID YOMI Administration Protocol Sodium Chloride 1,000 mls @ 75 mls/hr 01/13/17 09:45 01/15/17 10:09 Normal Saline - IV 75 mls/hr ASDIR YOMI Administration Insulin Aspart 1 vial 01/11/17 07:00 01/16/17 06:18 Novolog Vial Sliding Scale - SQ Not Given ACHS YOMI Protocol Magnesium Oxide 400 mg 01/12/17 10:00 01/15/17 10:10 Mag-Ox - PO 400 mg DAILY YOMI Administration Non-Formulary Medication 100 mg 01/16/17 10:00 Posaconazole [Noxafil] PO DAILY YOMI Nystatin 500,000 units 01/12/17 12:00 01/16/17 05:30 Nystatin Oral Suspension - PO 500,000 units Q6HPO YOMI Administration Sodium Chloride 2 spray 01/11/17 22:00 01/15/17 21:17 [place] Nasal [place] - NS 2 spray BID YOMI Administration Ursodiol 300 mg 01/11/17 22:00 01/15/17 21:17 Actigal - PO 300 mg BID YOMI Administration ASSESSMENT/PLAN: 61 yo man with AML(receiving trial chemotherapy, hospice) NIDDM, HTN, HLD, hx of DVT, s/p fall and hematuria admitted for managment of severe sepsis. - Followed at [facility] Dr. Gibson(cell [phone], office [phone]) and Dr. Lomeli #Severe sepsis( MILLER, fever, tachycardia, elevated wbc) - improved - IVF @75ml/hr - will d/c IVF since pt has adequate po intake - started on meropenem -- started 01/11 - today is day 7 - vanc 01/11-01/14 -- Dr. Shea consulted for ID - continue Posoconazole - bld, urine cx, swab for flu, NEG #MILLER - improved, Cr 1.6 - holding bactrim and valganciclovir for now - monitor I&O #Visual changes - improved, will provide referrral for outpatient follow-up with optho - pending ophtho consult - will continue to monitor, consider MRI if continues or worsens. #Facial Trauma - ENT consult for non-displaced nasal bone fracture; Recommend: nasal saline spray, ophthalmology consultation, no surgical intervention recommended - optho consult Dr. Egan #pancytopenia( 5.9/17.4, plts of 3), marloley secondary to his AML/chemotherapy - improved s/p transfusions - transfused: 3 units of prbc's, 2 units ffp, 2 units monoplatelets - Dr. Gaytan consulted #Palliative to discuss GOC with family, as patient is hospice/palliative #DM - NISS #HTN - monitor off norvasc - norvasc 5mg(home med) #DVT: scd's #Diet; diabetic Visit type - Emergency Visit Emergency Visit: No - New Patient This patient is new to me today: No - Critical Care Critical Care patient: No - Discharge Referral Referred to [facility] Med P.C.: No
[2017-01-16] MEDS ORDERED: PT OWN MED DRAWER 7, Y5N ONE ×3 (09:22→23:42)
[2017-01-16] MEDS: MEROPENEM 1 GM in DEXTROSE 5%-WATER - 100 ML IVPB SCH (09:28)
[2017-01-16] MEDS: SODIUM CHLORIDE NASAL SPRAY 44 ML BOTTLE NS SCH ×2 (09:29→22:35)
[2017-01-16] MEDS: POSACONAZOLE 100 MG PO SCH (09:29)
[2017-01-16] MEDS: URSODIOL 300 MG CAPSULE PO SCH ×2 (09:30→22:34)
[2017-01-16] MEDS: MAGNESIUM OXIDE 400 MG TABLET (FP) PO SCH (09:30)
--- NOTE | 2017-01-16 11:24 | PN ---
Progress Note, Physician History of Present Illness: pulmonary alert,nad,-sob,-cp,cough - Current Medication List Current Medications: Active Medications Acetaminophen (Tylenol -) 650 mg PO Q6H PRN PRN Reason: FEVER OR PAIN Last Admin: 01/16/17 05:30 Dose: 650 mg Docusate Sodium (Colace -) 100 mg PO BID PRN PRN Reason: CONSTIPATION Last Admin: 01/11/17 10:00 Dose: 100 mg Hydromorphone HCl (Dilaudid Injection -) 1 mg IVPUSH Q4H PRN PRN Reason: PAIN Last Admin: 01/12/17 09:32 Dose: 1 mg Meropenem 1 gm/ Dextrose 100 mls @ 250 mls/hr IVPB BID YOMI PRN Reason: Protocol Last Admin: 01/16/17 09:28 Dose: 250 mls/hr Insulin Aspart (Novolog Vial Sliding Scale -) 1 vial SQ ACHS YOMI PRN Reason: Protocol Last Admin: 01/16/17 11:17 Dose: Not Given Magnesium Oxide (Mag-Ox -) 400 mg PO DAILY [facility] [place] Last Admin: 01/16/17 09:30 Dose: 400 mg Non-Formulary Medication (Posaconazole [Noxafil]) 100 mg PO DAILY [facility] [place] Last Admin: 01/16/17 09:29 Dose: 100 mg Nystatin (Nystatin Oral Suspension -) 500,000 units PO Q6HPO [facility] [place] Last Admin: 01/16/17 05:30 Dose: 500,000 units Sodium Chloride ([place] Nasal [place] -) 2 spray NS BID [facility] [place] Last Admin: 01/16/17 09:29 Dose: Not Given Ursodiol (Actigal -) 300 mg PO BID [facility] [place] Last Admin: 01/16/17 09:30 Dose: 300 mg - Objective Vital Signs: Vital Signs Temperature 99.3 F 01/16/17 06:00 Pulse Rate 80 01/16/17 06:00 Respiratory Rate 20 01/16/17 06:00 Blood Pressure 120/75 01/16/17 06:00 O2 Sat by Pulse Oximetry (%) 96 01/15/17 21:00 Constitutional: Yes: Calm, Thin Eyes: Yes: WNL HENT: Yes: WNL Neck: Yes: WNL Cardiovascular: Yes: Regular Rate and Rhythm, S1, S2 Respiratory: Yes: CTA Bilaterally Gastrointestinal: Yes: Normal Bowel Sounds, Soft Extremities: Yes: WNL Edema: No Labs: CBC, BMP 01/15/17 06:05 01/16/17 05:35 INR, PTT INR 1.53 (0.82-1.09) H 01/12/17 05:35 Fibrinogen 688.0 mg/dL (238-498) H 01/12/17 05:35 Assessment/Plan Assessment/Plan Pneumonia s/p Severe Sepsis Acute on Chronic Renal Failure AML Severe Anemia Severe Thrombocytopenia h/o DVT - broad spectrum antibiotics as per id - transfuse PRBC, platelets prn - monitor CBC, coags - continue IVF - monitor urine output, creatinine,lytes - O2 - DVT/GI prophylaxis DR KANG
--- NOTE | 2017-01-16 14:03 | PN ---
Progress Note, Physician History of Present Illness: Pt seen and examined at bedside. He is awake and alert. He denies dysuria. - Current Medication List Current Medications: Active Medications Acetaminophen (Tylenol -) 650 mg PO Q6H PRN PRN Reason: FEVER OR PAIN Last Admin: 01/16/17 05:30 Dose: 650 mg Docusate Sodium (Colace -) 100 mg PO BID PRN PRN Reason: CONSTIPATION Last Admin: 01/11/17 10:00 Dose: 100 mg Hydromorphone HCl (Dilaudid Injection -) 1 mg IVPUSH Q4H PRN PRN Reason: PAIN Last Admin: 01/12/17 09:32 Dose: 1 mg Meropenem 1 gm/ Dextrose 100 mls @ 250 mls/hr IVPB BID YOMI PRN Reason: Protocol Last Admin: 01/16/17 09:28 Dose: 250 mls/hr Insulin Aspart (Novolog Vial Sliding Scale -) 1 vial SQ ACHS YOMI PRN Reason: Protocol Last Admin: 01/16/17 11:17 Dose: Not Given Magnesium Oxide (Mag-Ox -) 400 mg PO DAILY [facility] Last Admin: 01/16/17 09:30 Dose: 400 mg Non-Formulary Medication (Posaconazole [Noxafil]) 100 mg PO DAILY [facility] Last Admin: 01/16/17 09:29 Dose: 100 mg Nystatin (Nystatin Oral Suspension -) 500,000 units PO Q6HPO [facility] Last Admin: 01/16/17 11:28 Dose: Not Given Sodium Chloride ([place] Nasal [place] -) 2 spray NS BID [facility] Last Admin: 01/16/17 09:29 Dose: Not Given Ursodiol (Actigal -) 300 mg PO BID [facility] Last Admin: 01/16/17 09:30 Dose: 300 mg - Objective Vital Signs: Vital Signs Temperature 98.3 F 01/16/17 10:00 Pulse Rate 72 01/16/17 10:00 Respiratory Rate 18 01/16/17 10:00 Blood Pressure 105/57 01/16/17 10:00 O2 Sat by Pulse Oximetry (%) 95 01/16/17 09:00 Constitutional: Yes: Calm Eyes: Yes: Conjunctiva Clear HENT: Yes: Atraumatic Neck: Yes: Supple Cardiovascular: Yes: S1, S2 Respiratory: Yes: CTA Bilaterally Gastrointestinal: Yes: Soft Genitourinary: Yes: WNL Musculoskeletal: Yes: WNL Edema: No Neurological: Yes: Oriented Psychiatric: Yes: Oriented Labs: CBC, BMP 01/15/17 06:05 01/16/17 05:35 INR, PTT INR 1.53 (0.82-1.09) H 01/12/17 05:35 Fibrinogen 688.0 mg/dL (238-498) H 01/12/17 05:35 Assessment/Plan Current Medications Generic Name Dose Route Start Last Admin Trade Name Freq PRN Reason Stop Dose Admin Acetaminophen 650 mg 01/11/17 18:21 01/16/17 05:30 Tylenol - PO 650 mg Q6H PRN Administration FEVER OR PAIN Docusate Sodium 100 mg 01/11/17 07:03 01/11/17 10:00 Colace - PO 100 mg BID PRN Administration CONSTIPATION Hydromorphone HCl 1 mg 01/11/17 07:03 01/12/17 09:32 Dilaudid Injection - IVPUSH 1 mg Q4H PRN Administration PAIN Meropenem 1 gm/ Dextrose 100 mls @ 250 mls/hr 01/11/17 22:00 01/16/17 09:28 IVPB 250 mls/hr BID [facility] Administration Protocol Insulin Aspart 1 vial 01/11/17 07:00 01/16/17 11:17 Novolog Vial Sliding Scale - SQ Not Given ACHS [facility] Protocol Magnesium Oxide 400 mg 01/12/17 10:00 01/16/17 09:30 Mag-Ox - PO 400 mg DAILY YOMI Administration Non-Formulary Medication 100 mg 01/16/17 10:00 01/16/17 09:29 Posaconazole [Noxafil] PO 100 mg DAILY YOMI Administration Nystatin 500,000 units 01/12/17 12:00 01/16/17 11:28 Nystatin Oral Suspension - PO Not Given Q6HPO YOMI Sodium Chloride 2 spray 01/11/17 22:00 01/16/17 09:29 [place] Nasal [place] - NS Not Given BID YOMI Ursodiol 300 mg 01/11/17 22:00 01/16/17 09:30 Actigal - PO 300 mg BID YOMI Administration Impression 1. MILLER 2. 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 DM 5. hyperlipidemia 6. HTN 7. hx DVT 8. hematuria 9. sepsis 10. thrombocytopenia 11. anemia 12. bilateral renal cysts Plan - renal function is improving - monitor platelets - will need outpt follow up - hematuria is improved - likely etiology of MILLER is ATN - FENa is 0.79 percent which is consistent with pre-renal disease - repeat labs in am - abx per ID - urology evaluation for gross hematuria - will follow closely
--- NOTE | 2017-01-16 14:47 | PN ---
Progress Note, Physician History of Present Illness: patient doing well no issues has been afebrile for more than 24 hrs - Current Medication List Current Medications: Active Medications Acetaminophen (Tylenol -) 650 mg PO Q6H PRN PRN Reason: FEVER OR PAIN Last Admin: 01/16/17 05:30 Dose: 650 mg Docusate Sodium (Colace -) 100 mg PO BID PRN PRN Reason: CONSTIPATION Last Admin: 01/11/17 10:00 Dose: 100 mg Hydromorphone HCl (Dilaudid Injection -) 1 mg IVPUSH Q4H PRN PRN Reason: PAIN Last Admin: 01/12/17 09:32 Dose: 1 mg Meropenem 1 gm/ Dextrose 100 mls @ 250 mls/hr IVPB BID YOMI PRN Reason: Protocol Last Admin: 01/16/17 09:28 Dose: 250 mls/hr Insulin Aspart (Novolog Vial Sliding Scale -) 1 vial SQ ACHS YOMI PRN Reason: Protocol Last Admin: 01/16/17 11:17 Dose: Not Given Magnesium Oxide (Mag-Ox -) 400 mg PO DAILY [facility] Last Admin: 01/16/17 09:30 Dose: 400 mg Non-Formulary Medication (Posaconazole [Noxafil]) 100 mg PO DAILY [facility] Last Admin: 01/16/17 09:29 Dose: 100 mg Nystatin (Nystatin Oral Suspension -) 500,000 units PO Q6HPO [facility] Last Admin: 01/16/17 11:28 Dose: Not Given Sodium Chloride ([place] Nasal [place] -) 2 spray NS BID [facility] Last Admin: 01/16/17 09:29 Dose: Not Given Ursodiol (Actigal -) 300 mg PO BID [facility] Last Admin: 01/16/17 09:30 Dose: 300 mg - Objective Vital Signs: Vital Signs Temperature 98.3 F 01/16/17 10:00 Pulse Rate 72 01/16/17 10:00 Respiratory Rate 18 01/16/17 10:00 Blood Pressure 105/57 01/16/17 10:00 O2 Sat by Pulse Oximetry (%) 95 01/16/17 09:00 Constitutional: Yes: No Distress, Calm Cardiovascular: Yes: Regular Rate and Rhythm Respiratory: Yes: Regular, CTA Bilaterally Gastrointestinal: Yes: Normal Bowel Sounds, Soft Musculoskeletal: Yes: WNL Extremities: Yes: WNL Neurological: Yes: Alert, Oriented Psychiatric: Yes: Alert Labs: CBC, BMP 01/15/17 06:05 01/16/17 05:35 INR, PTT INR 1.53 (0.82-1.09) H 01/12/17 05:35 Fibrinogen 688.0 mg/dL (238-498) H 01/12/17 05:35 Assessment/Plan 1. MILLER 2. 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 DM 5. hyperlipidemia 6. HTN 7. hx DVT 8. hematuria 9. sepsis 10. thrombocytopenia 11. anemia 12 pneumonia renal failure leukocytosis oral thrush plan patient afebrile stopped abx watch till tomorrow morning if afebrile can be discharged
--- NOTE | 2017-01-16 16:30 | PN ---
Teaching Attending Note Name of Resident: Jennifer Harrington ATTENDING PHYSICIAN STATEMENT I saw and evaluated the patient. I reviewed the resident's note and discussed the case with the resident. I agree with the resident's findings and plan as documented. SUBJECTIVE: Patient is afebrile for 24 hrs. wants to go home. No fever or chills, no shortness of breath, lying in bed with no acute distress. OBJECTIVE: Vital Signs Temperature 98.5 F 01/16/17 14:21 Pulse Rate 82 01/16/17 14:21 Respiratory Rate 16 01/16/17 14:21 Blood Pressure 105/62 01/16/17 14:21 O2 Sat by Pulse Oximetry (%) 95 01/16/17 09:00 GENERAL: The patient is awake, alert, and fully oriented, in no acute distress. HEAD: Normal with no signs of trauma. EYES: PERRL, extraocular movements intact, sclera anicteric, conjunctiva clear. ENT: Ears normal, oropharynx clear without exudates, moist mucous membranes. NECK: Trachea midline, full range of motion, supple. LUNGS: Breath sounds equal, clear to auscultation bilaterally, no wheezes, no crackles, no accessory muscle use. HEART: Regular rate and rhythm, S1, S2 positive , rub or gallop. ABDOMEN: Soft, nontender, ND, normoactive bowel sounds, no guarding, no rebound , no masses appreciated. EXTREMITIES: 2+ pulses, warm, well-perfused, no edema. NEUROLOGICAL: Cranial nerves II through XII grossly intact. Normal speech, gait not observed. PSYCH: Normal mood, normal affect. SKIN: Warm, dry, normal turgor, no rashes or lesions noted CBCD WBC 8.3 K/mm3 (4.0-10.0) 01/15/17 06:05 RBC 2.84 M/mm3 (4.00-5.60) L 01/15/17 06:05 Hgb 8.5 GM/dL (11.7-16.9) L 01/15/17 06:05 Hct 25.3 % (35.4-49) L 01/15/17 06:05 MCV 88.8 fl (80-96) 01/15/17 06:05 MCHC 33.8 g/dl (32.0-35.9) 01/15/17 06:05 RDW 14.5 % (11.9-15.9) 01/15/17 06:05 Plt Count 32 K/MM3 (134-434) L* D 01/15/17 06:05 MPV 8.5 fl (7.5-11.1) 01/15/17 06:05 CMP Sodium 141 mmol/L (136-145) 01/16/17 05:35 Potassium 3.9 mmol/L (3.5-5.1) 01/16/17 05:35 Chloride 108 mmol/L (98-107) H 01/16/17 05:35 Carbon Dioxide 26 mmol/L (21-32) 01/16/17 05:35 Anion Gap 7 (8-16) L 01/16/17 05:35 BUN 22 mg/dL (7-18) H 01/16/17 05:35 Creatinine 1.6 mg/dL (0.7-1.3) H 01/16/17 05:35 Creat Clearance w eGFR 41.04 (>60) 01/15/17 06:05 Random Glucose 95 mg/dL (74-106) 01/16/17 05:35 Calcium 8.0 mg/dL (8.5-10.1) L 01/16/17 05:35 Total Bilirubin 0.5 mg/dL (0.2-1.0) D 01/15/17 06:05 AST 29 U/L (15-37) D 01/15/17 06:05 ALT 45 U/L (12-78) 01/15/17 06:05 Alkaline Phosphatase 89 U/L (45-117) D 01/15/17 06:05 Total Protein 6.1 g/dl (6.4-8.2) L 01/15/17 06:05 Albumin 2.0 g/dl (3.4-5.0) L 01/15/17 06:05 CARDIAC ENZYMES Creatine Kinase 310 IU/L (39-308) H D 01/12/17 05:35 Troponin I 0.13 ng/ml (0.00-0.05) H 01/12/17 05:35 Current Medications Generic Name Dose Route Start Last Admin Trade Name Freq PRN Reason Stop Dose Admin Acetaminophen 650 mg 01/11/17 18:21 01/16/17 05:30 Tylenol - PO 650 mg Q6H PRN Administration FEVER OR PAIN Docusate Sodium 100 mg 01/11/17 07:03 01/11/17 10:00 Colace - PO 100 mg BID PRN Administration CONSTIPATION Hydromorphone HCl 1 mg 01/11/17 07:03 01/12/17 09:32 Dilaudid Injection - IVPUSH 1 mg Q4H PRN Administration PAIN Insulin Aspart 1 vial 01/11/17 07:00 01/16/17 11:17 Novolog Vial Sliding Scale - SQ Not Given ACHS YOMI Protocol Magnesium Oxide 400 mg 01/12/17 10:00 01/16/17 09:30 Mag-Ox - PO 400 mg DAILY YOMI Administration Non-Formulary Medication 100 mg 01/16/17 10:00 01/16/17 09:29 Posaconazole [Noxafil] PO 100 mg DAILY YOMI Administration Nystatin 500,000 units 01/12/17 12:00 01/16/17 11:28 Nystatin Oral Suspension - PO Not Given Q6HPO YOMI Sodium Chloride 2 spray 01/11/17 22:00 01/16/17 09:29 [place] Nasal [place] - NS Not Given BID YOMI Ursodiol 300 mg 01/11/17 22:00 01/16/17 09:30 Actigal - PO 300 mg BID YOMI Administration Hepatic Panel Total Bilirubin 0.5 mg/dL (0.2-1.0) D 01/15/17 06:05 AST 29 U/L (15-37) D 01/15/17 06:05 ALT 45 U/L (12-78) 01/15/17 06:05 Alkaline Phosphatase 89 U/L (45-117) D 01/15/17 06:05 Albumin 2.0 g/dl (3.4-5.0) L 01/15/17 06:05 CT scan of the chest 2cm mass on the left lower mass most most likely neoplastic process ASSESSMENT AND PLAN: 61 yo M with significant PMHx of AML, NIDDM, HTN, HLD, and DVT, admitted for management of severe sepsis. #s/p severe sepsis(No further fever or chills) , last dose of IV antibiotic today, if no further fever patient can be discharged home in am as per ID; . s/p Meropenem and s/p Vancomycin on admission. Negative Blood culture , UA, urine culture . On Antifungal prophylaxis- Noxafil 100mg po daily from home. On Nyastatin prophylacticaly #Acute pancytopenia (WBC but still thrombocytopenic and anemic but asymtomatic at this point) improved ,due to experimental therapy that was given s/p STem cell transplant , due to his AML/chemotherapy - improved s/p transfusions s/p tansfusion of FFP 2 units, platelets 2 units, 2 units of PRBC. on the case. # Acute renal failure improving 17/12.6 today ; dr Linn on the case ; prograf level was send out but not detected , On IVF improving. # Facial Trauma s/p fall with Floaters. No diplopia f/u with Ophthalmology as an outpatient . #T2DM ;NISS #HTN ; stable not on any meds DVT Px: SCds Discharge patient home in am if afebrile , follow up with oncologist in am.
--- NOTE | 2017-01-16 19:48 | PN ---
Progress Note (short form) - Note Progress Note: Patient seen and examined Declines MRI despite persistent diplopia. Will need outpatient MRI and opthhomology evaluation. No CBC from today will need to recheck in AM. Hct has remained stable Renal function improved Last Vital Signs Temp Pulse Resp BP Pulse Ox 98.5 F 82 16 105/62 95 01/16/17 14:21 01/16/17 14:21 01/16/17 14:21 01/16/17 14:21 01/16/17 09:00 ROS. Denies headaches, has occasional diplopia, no epistaxis, SOB, GI complaints of nausea, emesis, diarrhea, no hematuria, No LE edema, no significant musculoskeletal complaints. Anxious for discharge HEENT: DEANNA, EOM Intact Oropharynx: No thrush, No mucositis Neck: Supple Nodes: Without adenopathy Cor: RSR, No murmurs, No gallops Lungs: Clear to P&A Abd: Soft, Normal bowel sounds, No organomegaly Ext:No significant edema Skin: No rashes, Integument intact CBC, BMP 01/15/17 06:05 01/16/17 05:35 Current Medications Generic Name Dose Route Start Last Admin Trade Name Freq PRN Reason Stop Dose Admin Acetaminophen 650 mg 01/11/17 18:21 01/16/17 05:30 Tylenol - PO 650 mg Q6H PRN Administration FEVER OR PAIN Docusate Sodium 100 mg 01/11/17 07:03 01/11/17 10:00 Colace - PO 100 mg BID PRN Administration CONSTIPATION Hydromorphone HCl 1 mg 01/11/17 07:03 01/12/17 09:32 Dilaudid Injection - IVPUSH 1 mg Q4H PRN Administration PAIN Insulin Aspart 1 vial 01/11/17 07:00 01/16/17 17:42 Novolog Vial Sliding Scale - SQ Not Given ACHS OYMI Protocol Magnesium Oxide 400 mg 01/12/17 10:00 01/16/17 09:30 Mag-Ox - PO 400 mg DAILY YOMI Administration Non-Formulary Medication 100 mg 01/16/17 10:00 01/16/17 09:29 Posaconazole [Noxafil] PO 100 mg DAILY YOMI Administration Nystatin 500,000 units 01/12/17 12:00 01/16/17 17:43 Nystatin Oral Suspension - PO Not Given Q6HPO YOMI Sodium Chloride 2 spray 01/11/17 22:00 01/16/17 09:29 [place] Nasal [place] - NS Not Given BID YOMI Ursodiol 300 mg 01/11/17 22:00 01/16/17 09:30 Actigal - PO 300 mg BID YOMI Administration Impression: 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
[2017-01-17] MEDS: NYSTATIN 500,000 UNITS/5 ML SUSPENSION PO SCH ×3 (00:58→12:52)
[2017-01-17] MEDS: INSULIN SLIDING SCALE (NOVOLOG) 1 VIAL SQ SCH ×2 (06:13→12:52)
[2017-01-17 07:58] LABS: MCH 30.3 pg (25.7-33.7); MCHC 33.9 g/dl (32.0-35.9); MEAN CELL VOLUME 89.6 fl (80-96); MEAN PLT VOLUME 9.4 fl (7.5-11.1); RDW 13.9 % (11.9-15.9); WHITE BLOOD COUNT 7.5 K/mm3 (4.0-10.0)
[2017-01-17 08:09] LABS: PLATELET COUNT 31 K/MM3 (134-434)
[2017-01-17 08:35] LABS: CALCIUM 8.2 mg/dL (8.5-10.1); CREATININE 1.7 mg/dL (0.7-1.3)
[2017-01-17] MEDS ORDERED: PT OWN MED DRAWER 7, Y5N ONE (09:44)
[2017-01-17] MEDS: URSODIOL 300 MG CAPSULE PO SCH (09:58)
[2017-01-17] MEDS: MAGNESIUM OXIDE 400 MG TABLET (FP) PO SCH (09:59)
[2017-01-17] MEDS: SODIUM CHLORIDE NASAL SPRAY 44 ML BOTTLE NS SCH (10:00)
[2017-01-17] MEDS: POSACONAZOLE 100 MG PO SCH (10:00)
--- NOTE | 2017-01-17 11:43 | PN ---
Progress Note (short form) - Note Progress Note: PULMONARY T MAX 99 WANTS TO GO HOME ANICTERIC DIMINISHED BREATH SOUNDS BASES S1S2 BS+ NO EDEMA LABS/MEDS/NOTES/IMAGING/MICRO REVIEWED AML Anemia Thrombocytopenia h/o DVT NO OBJECTION TO DISCHARGE PLANNING PATIENT WILL FOLLOW WITH PMD/ONCO Lolita CROW MD
--- NOTE | 2017-01-17 11:48 | DS ---
Physical Exam: SUBJECTIVE: Patient seen and examined. vision has improved. denies pain, hematuria, bleeding, headache, chest pain, fever, chills, nausea, SOB. OBJECTIVE: Vital Signs Period Temp Pulse Resp BP Sys/Martinez Pulse Ox Last 24 Hr 98.1 F-99.6 F 20-84 16-20 105-113/60-72 95 PHYSICAL EXAM GENERAL: The patient is awake, alert, and fully oriented, in no acute distress. HEAD: Normal with no signs of trauma. EYES: PERRL, extraocular movements intact, sclera anicteric, conjunctiva clear. ENT: Ears normal, nares patent, oropharynx clear without exudates, healing ulcer on oral mucosa of right upper lip, moist mucous membranes. NECK: Trachea midline, full range of motion, supple. LUNGS: Breath sounds equal, clear to auscultation bilaterally, no wheezes, no crackles, no accessory muscle use. HEART: Regular rate and rhythm, S1, S2 without murmur, rub or gallop. ABDOMEN: Soft, nontender, nondistended, normoactive bowel sounds, no guarding, no rebound, no hepatosplenomegaly, no masses. EXTREMITIES: 2+ pulses, warm, well-perfused, no edema. NEUROLOGICAL: Normal speech, gait normal PSYCH: Normal mood, normal affect. Selected Entries 01/11/17 01/11/17 01/11/17 00:53 02:30 05:46 Temperature 105.4 F H 102.4 F H Pulse Rate 131 H Pulse Rate [ 115 H Left Radial] Blood Pressure 140/78 O2 Sat by Pulse 88 L 92 L Oximetry (%) Oxygen Delivery Method 01/17/17 01/17/17 09:00 10:00 Temperature 98.4 F Pulse Rate 79 Pulse Rate [ Left Radial] Blood Pressure 107/67 O2 Sat by Pulse Oximetry (%) Oxygen Delivery Room Air Method Laboratory Tests 01/11/17 01/11/17 01/11/17 01:00 01:00 07:00 WBC 13.3 H D Hgb 7.6 L Hct 22.8 L Plt Count 6.0 L* D Haptoglobin INR PTT (Actin FS) Thrombin Time Fibrinogen Fibrin Degrad Products Sodium 141 Potassium 4.1 Chloride 103 Carbon Dioxide 27 BUN 36 H D Creatinine 3.2 H D Tacrolimus None detected 01/11/17 01/11/17 01/11/17 07:48 11:30 11:30 WBC Hgb Hct Plt Count Haptoglobin 329 H INR 2.00 H PTT (Actin FS) 58.9 H Thrombin Time 15.0 Fibrinogen 504.0 H Fibrin Degrad Products >10 & <40 Sodium Potassium Chloride Carbon Dioxide BUN Creatinine Tacrolimus 01/12/17 01/12/17 01/17/17 05:35 05:35 06:20 WBC 7.5 Hgb 9.1 L Hct 26.9 L Plt Count 31 L* Haptoglobin INR 1.53 H PTT (Actin FS) 46.2 H Thrombin Time Fibrinogen 688.0 H Fibrin Degrad Products Sodium Potassium Chloride Carbon Dioxide BUN Creatinine Tacrolimus 01/17/17 06:20 WBC Hgb Hct Plt Count Haptoglobin INR PTT (Actin FS) Thrombin Time Fibrinogen Fibrin Degrad Products Sodium 141 Potassium 3.8 Chloride 106 Carbon Dioxide 26 BUN 22 H Creatinine 1.7 H Tacrolimus Microbiology 01/11/17 20:30 Nasopharyngeal Swab Respiratory Virus (PCR) - Prelim 01/11/17 01:00 Blood - Peripheral Venous Blood Culture - Final NO GROWTH AFTER 5 DAYS INCUBATION 01/11/17 01:00 Blood - Peripheral Venous Blood Culture - Final NO GROWTH AFTER 5 DAYS INCUBATION 01/12/17 08:00 Urine - Urine Clean Catch Urine Culture - Final NO GROWTH OBTAINED 01/11/17 20:30 Nasopharyngeal Swab Influenza Types A,B Antigen (KATHARINE) - Final - NEGATIVE 01/11/17 20:30 Nasopharyngeal Swab - Final IMAGING- summarized Chest Xray: Left retrocardiac density is noted correlating with consolidation and mass seen on CT scan of January 11, 2017. Mild linear densities at right lung base may reflect atelectasis. Cardiac silhouette is mildly prominent. IMPRESSION: Left retrocardiac consolidation and mass, better seen on recent CT scan. renal ultrasound: Bilateral renal cysts, without evidence of hydronephrosis. Slightly hyperechoic kidneys suggestive of medical renal disease. Partially distended urinary bladder. Mild thickening of the urinary bladder wall measuring 4 mm, likely due to inadequate distention. Nonvisualization of the right ureteral jet. Left ureteral jet is present. Patient could not hold urine. Postvoid urine residue is 11 cc. Prostate gland was not visualized. Chest CT w/o contrast: Evaluation of the lung kaiser demonstrates a large area of consolidation within the medial aspect of the left lower lobe. Contiguous to this consolidation is a poorly defined 2 cm mass. This could represent a neoplastic process. Clinical correlation and follow-up is recommended. Abd/pelvis w/o contrast: The liver, spleen, pancreas, adrenal glands and kidneys demonstrate no gross abnormalities. There is a small right renal cyst present. The gallbladder is clear. Examination of the pelvis demonstrates no evidence of pelvic masses, fluid collections or lymphadenopathy. Fecal impaction is noted within the rectum. The prostate gland is mildly enlarged. Facial bones CT: No evidence of the facial soft tissue swelling, or preseptal soft tissue swelling. There is deformity of the bilateral medial orbital jackson ( left > right). These changes represent chronic posttraumatic deformities the medial orbital jackson, possible dehiscence of the left medial orbital wall. There is no entrapment of the medial rectus muscles. Normal attenuation of the retro- orbital fat. Intact nasal bones, inferior orbital jackson, zygomatic arches , pterygoid plates, orbital roofs, cribriform plate. No evidence of mandible fracture. Normal temporomandibular joints. HOSPITAL COURSE: Date of Admission:01/11/17 - Date of Discharge: 01/17/17 61 yo M with AML, NIDDM, HTN, HLD, and hx of DVT, presented to the ED complaining of generalized weakness s/p 2 unwitnessed falls where he hit his left hip and head without LOC. He was also complaining of gross hematuria. Imaging studies summarized above. Given his pancytopenia and hematuria, he was transfused with a total of 3 units of prbc's, 2 units of leuko-reduced platelets , 2 units of fresh frozen plasma and treated with vitamin K 5mg po. He was also treated with meropenem for 7 days given high temperature. After discussing with his primary physicians, enrico Calvo, trial medication for his AML, bactrim and vangalcyclovir were held due to his acute kidney injury. He was evaluated by ENT for his facial trauma, he was found to have nondisplaced nasal fracture, left medial orbital wall blowout fracture, with EOMI and recommended to use nasal saline spray, undergo ophthalmology consultation and no surgical intervention recommended with outpatient follow-up. He improved, remained afebrile for 24 hours and was stable for discharge and outpatient follow-up. Recommendations - f/u with primary care team regarding restarting medications - mass was identified on chest CT requiring further evaluation - ophthalmology evaluation as outpatient Minutes to complete discharge: 50 Discharge Summary Reason For Visit: THROMBOCYTOPENIA SEVERE SEPSIS Current Active Problems AML (acute myeloblastic leukemia) (Acute) Thrombocytopenia (Acute) HTN (hypertension) (Chronic) Condition: Stable - Instructions Diet, Activity, Other Instructions: Follow-up with Dr. Gibson and Dr. Lomeli today or as soon as possible regarding your medications. Prograf, vangalcyclovir and bactrim were held. You other medications have been resumed. Follow-up with an opthomalogist regarding your vision changes and Dr. Marco Antonio Clark. You have a left lower lobe consolidation with contiguous 2 cm mass. It is recommended you follow-up with Dr. Gibson regarding further work-up for this mass. If you develop chest pain, bleeding or any new symtpoms return to the hospital. Referrals: Claudia De Souza MD [Primary Care Provider] - Marco Antonio Clark MD [Staff Physician] - Misa Egan MD [Staff Physician] - Disposition: VNS/HOME HEALTH CARE - Home Medications Comprehensive Discharge Medication List: Ambulatory Orders Amlodipine Besylate [Norvasc -] 5 mg PO DAILY 01/13/16 Magnesium Oxide [Magnesium] 400 mg PO DAILY 01/13/16 Oxycodone HCl/Acetaminophen [Percocet 5-325 mg Tablet] 1 tab PO Q8H PRN Posaconazole [Noxafil] 300 mg PO DAILY 01/13/16 Ursodiol [Actigal -] 300 mg PO BID 01/13/16 Sodium Chloride Nasal [place] [[place] Nasal [place] -] 2 spray NS BID spray This patient is new to me today: No Emergency Visit: No Critical Care patient: No - Discharge Referral Referred to [facility] No
[2017-01-17 11:52] VITALS: BP 107/67; PULSE 79; TEMP 98.4
[2017-01-17 11:57] LABS: METAMYELOCYTE 3 % (0-2)
--- NOTE | 2017-01-17 13:03 | PN ---
Progress Note, Physician History of Present Illness: Pt seen and examined at bedside. He is awake and feels well. He is asking to be discharged so he can follow with his oncologist. He denies hematuria or shortness of breath. - Current Medication List Current Medications: Active Medications Acetaminophen (Tylenol -) 650 mg PO Q6H PRN PRN Reason: FEVER OR PAIN Last Admin: 01/16/17 05:30 Dose: 650 mg Docusate Sodium (Colace -) 100 mg PO BID PRN PRN Reason: CONSTIPATION Last Admin: 01/11/17 10:00 Dose: 100 mg Hydromorphone HCl (Dilaudid Injection -) 1 mg IVPUSH Q4H PRN PRN Reason: PAIN Last Admin: 01/12/17 09:32 Dose: 1 mg Insulin Aspart (Novolog Vial Sliding Scale -) 1 vial SQ ACHS [facility] PRN Reason: Protocol Last Admin: 01/17/17 12:52 Dose: Not Given Magnesium Oxide (Mag-Ox -) 400 mg PO DAILY [facility] Last Admin: 01/17/17 09:59 Dose: 400 mg Non-Formulary Medication (Posaconazole [Noxafil]) 100 mg PO DAILY [facility] Last Admin: 01/17/17 10:00 Dose: 100 mg Nystatin (Nystatin Oral Suspension -) 500,000 units PO Q6HPO [facility] Last Admin: 01/17/17 12:52 Dose: Not Given Sodium Chloride ([place] Nasal [place] -) 2 spray NS BID [facility] Last Admin: 01/17/17 10:00 Dose: 2 spray Ursodiol (Actigal -) 300 mg PO BID [facility] Last Admin: 01/17/17 09:58 Dose: 300 mg - Objective Vital Signs: Vital Signs Temperature 98.4 F 01/17/17 10:00 Pulse Rate 79 01/17/17 10:00 Respiratory Rate 18 01/17/17 10:00 Blood Pressure 107/67 01/17/17 10:00 O2 Sat by Pulse Oximetry (%) 95 01/17/17 09:00 Constitutional: Yes: Calm Eyes: Yes: Conjunctiva Clear HENT: Yes: Atraumatic Neck: Yes: Supple Cardiovascular: Yes: S1, S2 Respiratory: Yes: CTA Bilaterally Gastrointestinal: Yes: Soft Genitourinary: Yes: WNL Musculoskeletal: Yes: WNL Edema: No Neurological: Yes: Oriented Psychiatric: Yes: Oriented Labs: CBC, BMP 01/17/17 06:20 01/17/17 06:20 INR, PTT INR 1.53 (0.82-1.09) H 01/12/17 05:35 Fibrinogen 688.0 mg/dL (238-498) H 01/12/17 05:35 Assessment/Plan Current Medications Generic Name Dose Route Start Last Admin Trade Name Freq PRN Reason Stop Dose Admin Acetaminophen 650 mg 01/11/17 18:21 01/16/17 05:30 Tylenol - PO 650 mg Q6H PRN Administration FEVER OR PAIN Docusate Sodium 100 mg 01/11/17 07:03 01/11/17 10:00 Colace - PO 100 mg BID PRN Administration CONSTIPATION Hydromorphone HCl 1 mg 01/11/17 07:03 01/12/17 09:32 Dilaudid Injection - IVPUSH 1 mg Q4H PRN Administration PAIN Insulin Aspart 1 vial 01/11/17 07:00 01/17/17 12:52 Novolog Vial Sliding Scale - SQ Not Given ACHS [facility] Protocol Magnesium Oxide 400 mg 01/12/17 10:00 01/17/17 09:59 Mag-Ox - PO 400 mg DAILY YOMI Administration Non-Formulary Medication 100 mg 01/16/17 10:00 01/17/17 10:00 Posaconazole [Noxafil] PO 100 mg DAILY YOMI Administration Nystatin 500,000 units 01/12/17 12:00 01/17/17 12:52 Nystatin Oral Suspension - PO Not Given Q6HPO YOMI Sodium Chloride 2 spray 01/11/17 22:00 01/17/17 10:00 [place] Nasal [place] - NS 2 spray BID YOMI Administration Ursodiol 300 mg 01/11/17 22:00 01/17/17 09:58 Actigal - PO 300 mg BID YOMI Administration Impression 1. MILLER 2. 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 DM 5. hyperlipidemia 6. HTN 7. hx DVT 8. hematuria 9. sepsis 10. thrombocytopenia 11. anemia 12. bilateral renal cysts Plan - will need to monitor renal function as outpt, this was explained to pt at length - monitor cbc - pt says he will follow with his oncologist in [facility] - hematuria is improved - likely etiology of MILLER is ATN - discussed with medical team - no acute change in management
--- NOTE | 2017-01-17 13:33 | PN ---
Progress Note, Physician History of Present Illness: patient doing well no issues has been afebrile - Objective Vital Signs: Vital Signs Temperature 98.4 F 01/17/17 10:00 Pulse Rate 79 01/17/17 10:00 Respiratory Rate 18 01/17/17 10:00 Blood Pressure 107/67 01/17/17 10:00 O2 Sat by Pulse Oximetry (%) 95 01/17/17 09:00 Constitutional: Yes: No Distress, Calm Cardiovascular: Yes: Regular Rate and Rhythm Respiratory: Yes: Regular, CTA Bilaterally Gastrointestinal: Yes: Normal Bowel Sounds, Soft Musculoskeletal: Yes: WNL Extremities: Yes: WNL Neurological: Yes: Alert, Oriented Psychiatric: Yes: Alert Labs: CBC, BMP 01/17/17 06:20 01/17/17 06:20 INR, PTT INR 1.53 (0.82-1.09) H 01/12/17 05:35 Fibrinogen 688.0 mg/dL (238-498) H 01/12/17 05:35 Assessment/Plan 1. MILLER 2. 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 DM 5. hyperlipidemia 6. HTN 7. hx DVT 8. hematuria 9. sepsis 10. thrombocytopenia 11. anemia 12 pneumonia renal failure leukocytosis oral thrush plan no abx stable
== END 2017-01-17 13:28 | disposition home health service (06) | DRG 840 ==
LOC: JER 00:21 → JERBED 07:33 → JICU 15:06 → J4S 01-14 17:59 → J8W 01-17 00:21
PROVIDERS: ADMIT Internal Medicine; ATTEND Internal Medicine
PROC: 30233K1 Transfusion of Nonautologous Frozen Plasma into Peripheral Vein, Percutaneous Approach (ICD-10-PCS; principal; 2017-01-11)
PROC: 30233N1 Transfusion of Nonautologous Red Blood Cells into Peripheral Vein, Percutaneous Approach (ICD-10-PCS; 2017-01-11)
PROC: 30233R1 Transfusion of Nonautologous Platelets into Peripheral Vein, Percutaneous Approach (ICD-10-PCS; 2017-01-11)
PROC: 0CJY8ZZ Inspection of Mouth and Throat, Via Natural or Artificial Opening Endoscopic (ICD-10-PCS; 2017-01-11)
DX: C92.Z0 Other myeloid leukemia not having achieved remission (principal); A41.9 Sepsis, unspecified organism; R65.20 Severe sepsis without septic shock; N17.0 Acute kidney failure with tubular necrosis; Z94.84 Stem cells transplant status; S02.32XA Fracture of orbital floor, left side, initial encounter for closed fracture; B37.0 Candidal stomatitis; Z94.81 Bone marrow transplant status; E11.9 Type 2 diabetes mellitus without complications; E78.5 Hyperlipidemia, unspecified; D70.9 Neutropenia, unspecified; D69.6 Thrombocytopenia, unspecified; S02.2XXA Fracture of nasal bones, initial encounter for closed fracture; S00.81XA Abrasion of other part of head, initial encounter; S00.31XA Abrasion of nose, initial encounter; W00.0XXA Fall on same level due to ice and snow, initial encounter; Z91.81 History of falling; Y92.410 Unspecified street and highway as the place of occurrence of the external cause; R51 Headache; I73.9 Peripheral vascular disease, unspecified; R31.0 Gross hematuria; Z86.718 Personal history of other venous thrombosis and embolism; Z72.0 Tobacco use; H53.2 Diplopia; R19.7 Diarrhea, unspecified; N28.1 Cyst of kidney, acquired; D72.829 Elevated white blood cell count, unspecified; E87.6 Hypokalemia; E83.39 Other disorders of phosphorus metabolism; I12.9 Hypertensive chronic kidney disease with stage 1 through stage 4 chronic kidney disease, or unspecified chronic kidney disease; E11.22 Type 2 diabetes mellitus with diabetic chronic kidney disease; N18.9 Chronic kidney disease, unspecified; R91.8 Other nonspecific abnormal finding of lung field
CPT/HCPCS: 36415; 36430; 36600; 70450-TC; 70486-TC; 71010-TC; 71250-TC; 73110-TC-LT; 73523-TC; 74176-TC; 76775-TC; 76856-TC; 80048; 80053; 80197; 81003; 81015; 82375; 82436; 82550; 82553; 82570; 82803; 83010; 83050; 83605; 83615; 83735; 84100; 84133; 84300; 84484; 85025; 85027; 85362; 85384; 85610; 85670; 85730; 86850; 86880; 86900; 86901; 86922; 87040; 87086; 87633; 87804; 93005; 93010; 93970-TC; 94010; 97116-GP; 97161-GP; 99284-25; G0480; P9017; P9034; P9038; P9058

== ENCOUNTER 2017-02-27 09:51 | Emergency (ER) | payer OTHER ==
[2017-02-27 10:31] VITALS: BMI 22.0
--- NOTE | 2017-02-27 10:45 | PDOC ---
History of Present Illness <Sivan Garza - Last Filed: 02/27/17 12:02> - General History Source: Patient Exam Limitations: No Limitations - History of Present Illness Initial Comments: 02/27/17 20:03 Patient is a 61 year old male with significant medical hx of acute myelogenous leukemia, NIDDM, HTN, HLD, and DVT who is presenting to the ED with right wrist injury since yesterday. The patient was on the commode when his right hand slipped off the side of the bowl and he injured his wrist. The patient also endorses some nausea and vomiting that has been intermittent since the patient underwent chemotherapy (no longer undergoing treatment) but denies any current nausea (States when he has pain he feels neaseaus). The patient came to the ED today because he couldnt tolerate his wrist pain. The patient is now undergoing clinicals for new medication to treat his AML. He does not know the name of the treatment his is undergoing. Denies palpitations or lightheadedness. PMD: Olivier Drummond MD Allergies: NKDA Surgical Hx: Stem cell transplant Social History: Former smoker (Quit January 2015). Denies alcohol or drug use. <Moris Araiza - Last Filed: 02/27/17 20:05> - General Chief Complaint: Nausea/Vomiting Stated Complaint: RT WRIST PAIN&VOMMITING Time Seen by Provider: 02/27/17 10:35 Past History <Sivan Garza - Last Filed: 02/27/17 12:02> - Past Medical History Anemia: Yes 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) Cardiac Disorders: Yes (?ISSUE) Diabetes: Yes HTN: Yes Hypercholesterolemia: Yes Suicide Attempt (Hx): No - Psycho/Social/Smoking Cessation Hx Anxiety: No Suicidal Ideation: No Smoking History: Current every day smoker Have you smoked in the past 12 months: Yes Number of Cigarettes Smoked Daily: 10 If you are a former smoker, when did you quit?: 2014 Information on smoking cessation initiated: No 'Breaking Loose' booklet given: 02/08/15 Hx Alcohol Use: No Drug/Substance Use Hx: No Substance Use Type: None Hx Substance Use Treatment: No <Moris Araiza - Last Filed: 02/27/17 20:05> - Past Medical History Allergies/Adverse Reactions: Allergies Allergy/AdvReac Type Severity Reaction Status Date / Time No Known Allergies Allergy Verified 02/27/17 10:18 Home Medications: Ambulatory Orders Oxycodone HCl/Acetaminophen [Percocet 5-325 mg Tablet -] 1 combo PO Q6H PRN #14 tablet MDD 4 02/27/17 Review of Systems - Review of Systems Able to Perform ROS?: Yes Comments:: 02/27/17 20:03 CONSTITUTIONAL: No reported: Fever, Chills, Diaphoresis, Generalized Weakness, Malaise, Loss of Appetite HEENT: No reported: Rhinorrhea, Nasal Congestion, Throat Pain, Throat Swelling, Difficulty Swallowing, Mouth Swelling, Ear Pain, Eye Pain, Visual Changes CARDIOVASCULAR: No reported: Chest Pain, Syncope, Palpitations, Irregular Heart Rate, Lightheadedness, Peripheral Edema RESPIRATORY: No reported: Cough, Shortness of Breath, SOB with Exertion, Orthopnea, Wheezing , Stridor, Hemoptysis GASTROINTESTINAL: Reported: Nausea, Vomiting No reported: Abdominal pain, Abdominal Distension, Diarrhea, Constipation, Melena, Hematochezia GENITOURINARY: No reported: Dysuria, Frequency, Urgency, Hesitancy, Flank Pain, Genital Pain MUSCULOSKELETAL: Reported: Right Wrist Pain No reported: Myalgia, Arthralgia, Joint Swelling, Back pain, Neck Pain SKIN: No reported: Rash, Itching, Pallor HEMEATOLOGIC/IMMUNOLOGIC: No reported: Easy Bleeding, Easy Bruising, Lymphadenopathy, Frequent infections ENDOCRINE: No reported: Unexplained Weight Gain, Unexplained Weight Loss, Heat Intolerance , Cold Intolerance NEUROLOGIC: No reported: Headache, Focal Weakness, Paresthesias, Vertigo, Lightheadedness, Unsteady Gait, Seizure, Mental Status Changes, Incontinence PSYCHIATRIC: No reported: Anxiety, Depression <Jose GMoris - Last Filed: 02/27/17 20:05> *Physical Exam - Vital Signs Last Vital Signs Temp Pulse Resp BP Pulse Ox 98.6 F 75 18 116/49 99 02/27/17 10:18 02/27/17 10:18 02/27/17 10:18 02/27/17 10:18 02/27/17 10:18 <Sivan Garza - Last Filed: 02/27/17 12:02> - Vital Signs Last Vital Signs Temp Pulse Resp BP Pulse Ox 98.6 F 75 18 116/49 99 02/27/17 10:18 02/27/17 10:18 02/27/17 10:18 02/27/17 10:18 02/27/17 10:18 - Physical Exam Comments: 02/27/17 20:04 GENERAL: The patient is awake, alert, and fully oriented, Nontoxic - in no acute distress. HEAD: Normocephalic, atraumatic. EXTREMITIES: mild difufse tenderness to the L wrist, no crepitus, n/v intact, sensation intact, pulses intact b/l. NEUROLOGICAL: No facial assymetry, Normal speech, moving all 4 extremities spontaneously and symmetrically PSYCH: Normal mood, normal affect. SKIN: Warm, Dry, normal turgor, <Moris Araiza - Last Filed: 02/27/17 20:05> Heart Score/ECG Review - ECG Impressions Comment:: 02/27/17 12:51 Twelve-lead EKG was performed and reviewed by me. There is normal sinus rhythm with a normal rate. Rate of 78 [place] interfal of 104 <Moris Araiza - Last Filed: 02/27/17 20:05> ED Treatment Course - LABORATORY CBC & Chemistry Diagram: 02/27/17 11:23 02/27/17 11:23 - ADDITIONAL ORDERS Additional order review: 02/27/17 11:23 RBC 2.74 L MCV 86.9 MCHC 33.6 RDW 15.0 MPV 9.6 Neutrophils % Y Lymphocytes % Y - RADIOLOGY Radiograph Interpretation: 02/27/17 12:03 Right Forearm X-Ray Impression: No acute pathology appreciated. Reported By: Marco Antonio Fernandez MD Right Hand/Wrist X-Ray Impression: No acute pathology appreciated. Reported By: Marco Antonio Fernandez MD - Medications Given in the ED: ED Medications Discontinued Medications Generic Name Dose Route Start Last Admin Trade Name Freq PRN Reason Stop Dose Admin Oxycodone/Acetaminophen 1 combo 02/27/17 11:00 02/27/17 11:30 Percocet 5/325 - PO 02/27/17 11:01 1 combo ONCE ONE Administration <Sivan Garza - Last Filed: 02/27/17 12:02> - LABORATORY CBC & Chemistry Diagram: 02/27/17 11:23 02/27/17 11:23 <Moris Araiza - Last Filed: 02/27/17 20:05> Medical Decision Making - Medical Decision Making 02/27/17 12:46 pts labs reviewed mild anemia platelets wnl cmp hemolyzed but will defer repeat pts xray is negative for fracture but pt has tenderness in the wrist diffusely - suspect strain pt was placed in a volar splint and will have him fu with orthopedics. I discussed the physical exam findings, ancillary test results and final diagnoses with the patient. I answered all of the patient's questions. The patient was satisfied with the care received and felt comfortable with the discharge plan and treatment plan. The patient will call their primary care physician within 24 hours to arrange follow-up and will return to the Emergency Department with any new, persistent or worsening symptoms. <Jose GMoris - Last Filed: 02/27/17 20:05> *DC/Admit/Observation/Transfer <Sivan Garza - Last Filed: 02/27/17 12:02> - Discharge Dispostion Admit: No <Moris Araiza - Last Filed: 02/27/17 20:05> Diagnosis at time of Disposition: Right wrist sprain Qualifiers: Encounter type: initial encounter Qualified Code(s): S63.501A - Unspecified sprain of right wrist, initial encounter - Discharge Dispostion Disposition: HOME Condition at time of disposition: Improved - Prescriptions Prescriptions: Oxycodone HCl/Acetaminophen [Percocet 5-325 mg Tablet -] 1 combo PO Q6H PRN #14 tablet MDD 4 PRN Reason: Pain - Referrals Referrals: Bryson Nguyen MD [Staff Physician] - - Patient Instructions Printed Discharge Instructions: How to Use a Sling, DI for Wrist Sprain Additional Instructions: Return to the emergency department immediately with ANY new, persistent or worsening symptoms. You MUST call and follow up with your orthopedist in 1 week for further evaluation of your symptoms. Results were discussed with you. Please make sure your doctor reviews the results of your emergency evaluation. Print Language: BAHAMIAN
[2017-02-27] MEDS ORDERED: OXYCODONE/APAP 5/325MG COMBO TABLET PO ONE (11:00)
[2017-02-27] MEDS ORDERED: OXYCODONE/APAP 5/325MG COMBO TABLET ONE (11:09)
[2017-02-27 11:37] LABS: MCH 29.2 pg (25.7-33.7); MCHC 33.6 g/dl (32.0-35.9); MEAN CELL VOLUME 86.9 fl (80-96); MEAN PLT VOLUME 9.6 fl (7.5-11.1); PLATELET COUNT 234 K/MM3 (134-434); WHITE BLOOD COUNT 17.6 K/mm3 (4.0-10.0)
[2017-02-27 13:19] LABS: METAMYELOCYTE 1 % (0-2)
[2017-02-27 13:40] VITALS: BP 113/59; PULSE 77; TEMP 97.9
--- NOTE | 2017-02-27 17:27 | EKG ---
Test Reason : Blood Pressure : / mmHG Vent. Rate : 078 BPM Atrial Rate : 078 BPM P-R Int : 104 ms QRS Dur : 074 ms QT Int : 386 ms P-R-T Axes : 056 -15 015 degrees QTc Int : 440 ms SINUS RHYTHM WITH SHORT MT MINIMAL VOLTAGE CRITERIA FOR LVH, MAY BE NORMAL VARIANT BORDERLINE ECG WHEN COMPARED WITH ECG OF 11-JAN-2017 04:02, T WAVE VARIATION Confirmed by DANNY MAHER, ASHWIN ([id number]) on 02/27/2017 5:27:09 PM Referred By: Confirmed By:ASHWIN DELGADO MD
== END 2017-02-27 13:40 | disposition home or self-care (01) ==
LOC: JER 09:51
PROC: 2W3CX1Z Immobilization of Right Lower Arm using Splint (ICD-10-PCS; principal; 2017-02-27)
DX: S63.501A Unspecified sprain of right wrist, initial encounter (principal); X50.1XXA Overexertion from prolonged static or awkward postures, initial encounter; X50.9XXA Other and unspecified overexertion or strenuous movements or postures, initial encounter; Y93.89 Activity, other specified; Y92.031 Bathroom in apartment as the place of occurrence of the external cause; I10 Essential (primary) hypertension; E11.9 Type 2 diabetes mellitus without complications; E78.00 Pure hypercholesterolemia, unspecified; C92.Z0 Other myeloid leukemia not having achieved remission; Z86.718 Personal history of other venous thrombosis and embolism
CPT/HCPCS: 29125; 36415; 73090-TC-RT; 73110-TC-RT; 73130-TC-RT; 85025; 93005; 93010; 99283-25

== ENCOUNTER 2017-03-17 21:21 | Emergency (ER) | payer OTHER ==
[2017-03-17 22:09] VITALS: BP 130/78; PULSE 96; TEMP 97.4; BMI 23.7
--- NOTE | 2017-03-17 23:22 | PDOC ---
History of Present Illness - General Chief Complaint: Injury Stated Complaint: HIP PAIN Time Seen by Provider: 03/17/17 22:13 History Source: Patient Exam Limitations: No Limitations - History of Present Illness Initial Comments: 03/17/17 23:18 61yo Male patient w/ PmHx: HTN, Leukemia presents to ED c/o fall. Patient states he usually ambulates with cane do to left leg weakness, and was walking in his house, fell injuring his right shoulder and hip. Patient is concerned because he currently has Leukemia and was told his bones are brittle. He denies CP, Abd pain, back pain, diff breathing, or any other complaints at this time. Patient is currently on Dilaudid 2mg, Percocet 5/325mg and Tramadol 50mg prn for Severe pain. Occurred: reports: this evening Severity: reports: mild Pain Location: reports: pelvis, upper extremity Method of Injury: Yes: fall Modifying Factors: improves with: pain medication Loss of Consciousness: no loss of consciousness Associated Symptoms (Fall): denies symptoms Past History - Travel Traveled outside of the country in the last 30 days: No Close contact w/someone who was outside of country & ill: No - Past Medical History Allergies/Adverse Reactions: Allergies Allergy/AdvReac Type Severity Reaction Status Date / Time No Known Allergies Allergy Verified 03/17/17 22:08 Home Medications: Ambulatory Orders Metaxalone [Skelaxin] 800 mg PO QID PRN #30 tablet 03/18/17 Anemia: Yes 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) Cardiac Disorders: Yes (?ISSUE) Diabetes: Yes HTN: Yes Hypercholesterolemia: Yes Suicide Attempt (Hx): No - Psycho/Social/Smoking Cessation Hx Anxiety: No Suicidal Ideation: No Smoking History: Never smoked Have you smoked in the past 12 months: No Number of Cigarettes Smoked Daily: 0 If you are a former smoker, when did you quit?: 2014 Information on smoking cessation initiated: No 'Breaking Loose' booklet given: 02/08/15 Hx Alcohol Use: No Drug/Substance Use Hx: No Substance Use Type: None Hx Substance Use Treatment: No Trauma Specific PMHX - Complaint Specific PMHX Arthritis: No Back Injury: No Neck Injury: No Hx Sacro Iliac Joint Dysfunction: No Review of Systems - Review of Systems Able to Perform ROS?: Yes Is the patient limited Azeri proficient: No Constitutional: No: Chills, Fever Respiratory: No: Cough, Stridor, Wheezing Cardiac (ROS): No: Chest Pain, Lightheadedness, Palpitations, Chest Tightness ABD/GI: No: Diarrhea, Nausea, Poor Appetite, Poor Fluid Intake, Vomiting : No: Dysuria, Flank Pain, Hematuria Musculoskeletal: Yes: Joint Pain, Other (Rt Hip and Rt Shoulder Pain). No: Back Pain Integumentary: No: Erythema, Rash Neurological: No: Headache, Seizure, Ataxia, Dizziness All Other Systems: Reviewed and Negative *Physical Exam - Vital Signs Last Vital Signs Temp Pulse Resp BP Pulse Ox 97.4 F L 96 H 20 130/78 97 03/17/17 22:08 03/17/17 22:08 03/17/17 22:08 03/17/17 22:08 03/17/17 22:08 - Physical Exam General Appearance: Yes: Nourished, Appropriately Dressed. No: Apparent Distress, Mild Distress, Moderate Distress, Severe Distress Neck: positive: Trachea midline, Supple. negative: Decreased range of motion, Stridor, Lymphadenopathy (R), Lymphadenopathy (L) Respiratory/Chest: positive: Lungs Clear, Normal Breath Sounds. negative: Respiratory Distress, Accessory Muscle Use, Labored Respiration, Rapid RR, Stridor, Wheezing Cardiovascular: positive: Regular Rhythm, Regular Rate Gastrointestinal/Abdominal: positive: Normal Bowel Sounds, Flat, Soft. negative : Distended, Guarding, Rebound, Tenderness Musculoskeletal: positive: Normal Inspection. negative: CVA Tenderness, Decreased Range of Motion, Vertebral Tenderness Extremity: positive: Normal Capillary Refill, Normal Inspection, Normal Range of Motion, Tender (Rt. Shoulder and Hip with Passive ROM. ), Pelvis Stable Integumentary: positive: Normal Color, Dry, Warm Neurologic: positive: tobacco buyer II-XII NML intact, Fully Oriented, Alert, Normal Mood/ Affect, Normal Response, Motor Strength 5/5 ED Treatment Course - RADIOLOGY Radiology Studies Ordered: Category Date Time Status HIP-RIGHT [RAD] Stat Radiology 03/17/17 23:15 Ordered SHOULDER-RIGHT [RAD] Stat Radiology 03/17/17 23:15 Ordered *DC/Admit/Observation/Transfer Diagnosis at time of Disposition: Fall Qualifiers: Encounter type: initial encounter Qualified Code(s): W19.XXXA - Unspecified fall, initial encounter Shoulder pain Qualifiers: Laterality: right Chronicity: acute Qualified Code(s): M25.511 - Pain in right shoulder Hip pain Qualifiers: Laterality: right Qualified Code(s): M25.551 - Pain in right hip - Discharge Dispostion Disposition: HOME Condition at time of disposition: Stable Admit: No - Prescriptions Prescriptions: Metaxalone [Skelaxin] 800 mg PO QID PRN #30 tablet PRN Reason: Musculoskeletal Pain - Patient Instructions Printed Discharge Instructions: DI for Shoulder Pain, How to Prevent Falls Additional Instructions: FOLLOW UP WITH YOUR PRIMARY CARE PROVIDER THIS WEEK. CALL TO SCHEDULE APPOINTMENT. CONTINUE TAKING YOUR MEDICATIONS PRESCRIBED. I HAVE ADDED SKELAXIN A MUSCLE RELAXER. YOU MAY TAKE ONE TABLET WITH ANY ONE OF YOUR OTHER PAIN MEDICATIONS FOR PAIN RELIEF. DO NOT DRIVE, DRINK ALCOHOL, OR OPERATE HEAVY MACHINERY WHILE TAKING SKELAXIN. DRINK PLENTY WATER, THESE MEDICATIONS CAN CAUSE CONSTIPATION. Print Language: LUX[place]
== END 2017-03-18 01:04 | disposition home or self-care (01) ==
LOC: JER 21:21
DX: M25.511 Pain in right shoulder (principal); M25.551 Pain in right hip; R26.2 Difficulty in walking, not elsewhere classified; C92.Z0 Other myeloid leukemia not having achieved remission; I10 Essential (primary) hypertension; E11.9 Type 2 diabetes mellitus without complications; E78.00 Pure hypercholesterolemia, unspecified
CPT/HCPCS: 73030-TC-RT; 73502-TC-RT; 99282-25